=== PATIENT | female | born 1940 | race Caucasian/White ===

== ENCOUNTER → 2016-05-16 | Outpatient (CLI) | payer BC ==
[~2016-05-16] MED LIST: ASPEC81 PO; ATEN50TA8 PO; CHOL100010 PO; IRBE-37 PO; LORA-741 PO; SIMV40TA2 PO; TRIA37.5 PO; ZOLP5TAB6 PO; [UNRECOGNIZED DRUG - OTHER]
[2016-05-16 13:15] LABS: BASO % 0.6 %; BASO ABS # 0.04 K/uL (0-0.2); COMPLETE YES; EOS % 2.9 %; HEMATOCRIT 35.8 % (37-47); IG% 0.5 %; LYMPH % 14.6 %; LYMPH ABS # 0.97 K/uL (1.2-3.4); MEAN CELL VOLUME 89.3 fL (80-100); MEAN CORPUSCULAR HEMOGLOBIN 30.4 pg (25-34); MEAN CORPUSCULAR HGB CONC 34.1 g/dl (32-36); MEAN PLATELET VOLUME 10.7 fL (7.4-10.4); MONO % 6.9 %; NEUT % 74.5 %; PLATELET COUNT 175 K/uL (130-400); RED BLOOD COUNT 4.01 M/uL (4.2-5.4); WHITE BLOOD COUNT 6.63 K/uL (4.8-10.8)
[2016-05-16 13:48] LABS: ALT/SGPT 22 U/L (12-78); BLOOD UREA NITROGEN 31 mg/dl (7-18); BUN/CREATININE RATIO 23.8 (10-20); CALCIUM 9.8 mg/dl (8.5-10.1); CARBON DIOXIDE 25 mmol/L (21-32); CHLORIDE 102 mmol/L (98-107); CHOLESTEROL 145 mg/dl (0-200); GLUCOSE 82 mg/dl (70-99); SODIUM 137 mmol/L (136-145); TRIGLYCERIDES 88 mg/dl (0-150); VERY LOW DENSITY LIPOPROT CALC 18 mg/dl
[2016-05-16 13:58] LABS: ALKALINE PHOSPHATASE 82 U/L (45-117); AST/SGOT 14 U/L (15-37); CHOLESTEROL/HDL RATIO 2.5; HDL CHOLESTEROL 59 mg/dl; LDL CHOLESTEROL CALCULATED 68 mg/dl
== END | disposition home or self-care (01) ==
LOC: C.LAB1850 11:41
PROVIDERS: ATTEND Internal Medicine
DX: I44.7 Left bundle-branch block, unspecified (principal); E78.00 Pure hypercholesterolemia, unspecified; M81.0 Age-related osteoporosis without current pathological fracture

== ENCOUNTER → 2016-07-11 | Day surgery (SDC) | payer BC ==
[2016-07-04 15:13] VITALS: BMI 25.0
[~2016-07-11] VITALS: Ht 160 cm; Wt 65.0 kg
[~2016-07-11] MED LIST changes: +LIDOCAINE HCL 2% 2 ML VIAL (20MG/ML) ONE; +MIDAZOLAM HCL 1 MG/ML 2ML VIAL ONE; +ONDANSETRON INJ 2 MG/ML 2 ML VIAL ONE; +PROPOFOL IV EMULSION 10 MG/ML 20 ML VIAL IV ONE; -[UNRECOGNIZED DRUG - OTHER]
[2016-07-11 09:20] VITALS: Ht 160 cm; Wt 65.0 kg
--- NOTE | 2016-07-11 09:25 | Endo History and Physical ---
History & Physical Date of Service: July 11, 2016. Chief Complaint: Screening Referring Physician: Guille Dobson History of Present Illness 76 yo CF who presents for screening colonoscopy. Past Surgical History Hx Cardiac Surgery: Yes (HEART CATH, NO STENTS; AORTIC VALVE REPLACEMENT) Hx Internal Defibrillator: No Hx Pacemaker: No Hx Abdominal Surgery: No Hx of Implantable Prosthesis: No Hx Post-Op Nausea and Vomiting: No Hx Cancer Surgery: Yes (UBALDO BSO, LT BREAST MASTECTOMY) Hx Thoracic Surgery: No Hx Orthopedic: Yes (RT FOOT NEUROMA REMOVAL) Hx Urinary Tract Surgery: No Family History Colon CA Social History Smoking Status: Former Smoker Hx Substance Use: No Hx Alcohol Use: Yes (OCCASIONAL) Allergies Coded Allergies: Latex1 -Allergic Contact Dermititis (Verified Allergy, Unknown, RASH, 07/11) Penicillins (Verified Allergy, Unknown, RASH, 07/11/16) Sulfa Drugs (Verified Allergy, Unknown, "MAKE MY HEART RATE GO UP", ) Acetaminophen (Unverified Adverse Reaction, Intermediate, extreme nervous feeling and anxiety, 07/11/16) Oxycodone (Unverified Adverse Reaction, Intermediate, extreme nervous feeling and anxiety, 07/04/16) Uncoded Allergies: seafood (Allergy, Severe, nausea and vomiting profuse, 10/20/15) Current Medications Reported Home Medications Medications Dose Route/Sig Max Daily Dose Days Date Category Avapro (Irbesartan) 150 Mg Tab 0.5 Tab PO QAM 07/04/16 Reported Dyazide 37.5MG/25MG (Triamterene/HCTZ) Cap 1 Cap PO QAM 10/20/15 Reported Ativan (Lorazepam) 0.5 Mg Tab 1-2 Tabs PO Q8 PRN 10/20/15 Reported Vitamin D (Cholecalciferol) 1,000 Inter.unit Tab 1,000 Inter.unit PO QAM 12/25/12 Reported Ecotrin Or Generic * (Aspirin) 81 Mg Ectab 81 Mg PO QPM 03/31/09 Reported Zocor (Simvastatin) 40 Mg Tab 40 Mg PO HS 03/31/09 Reported Tenormin (Atenolol) 50 Mg Tab 50 Mg PO QAM 03/31/09 Reported Vital Signs Weight (Kilograms): 65.00 Height (Feet): 5 Height (Inches): 3 Physical Exam General Appearance: WD/WN, no apparent distress Respiratory/Chest: Auscultation: breath sounds normal Cardiovascular: Heart Auscultation: RRR Abdomen: Bowel Sounds: normal Inspection & Palpation: soft, non-distended, no tenderness, guarding & rebound Assessment and Plan Assessment: 76 yo CF who presents for screening colonoscopy. Plan: Proceed with colonoscopy.
--- NOTE | 2016-07-11 10:49 | GI REPORT ---
Procedure Date: 07/11/2016 10:03 AM THIS REPORT HAS BEEN AMENDED Addendum Number: 1 Addendum Date: 07/16/2016 4:35:22 PM No specimens were obtained during this procedure, and therefore, no pathology is pending. No repeat colonoscopy secondary to patient age and lack of adenomas. Procedure: Colonoscopy Indications: Screening for colorectal malignant neoplasm Medicines: Monitored Anesthesia Care Complications: No immediate complications. Estimated Blood Loss: Estimated blood loss: none. Procedure: Pre-Anesthesia Assessment: - Prior to the procedure, a History and Physical was performed, and patient medications and allergies were reviewed. The patient's tolerance of previous anesthesia was also reviewed. The risks and benefits of the procedure and the sedation options and risks were discussed with the patient. All questions were answered, and informed consent was obtained. Prior Anticoagulants: The patient has taken aspirin, last dose was 10 days prior to procedure. ASA Grade Assessment: II - A patient with mild systemic disease. After reviewing the risks and benefits, the patient was deemed in satisfactory condition to undergo the procedure. After I obtained informed consent, the scope was passed under direct vision. Throughout the procedure, the patient's blood pressure, pulse, and oxygen saturations were monitored continuously. The scope was introduced through the anus and advanced to the terminal ileum. The colonoscopy was performed without difficulty. The patient tolerated the procedure well. The quality of the bowel preparation was good. The terminal ileum, ileocecal valve, appendiceal orifice, and rectum were photographed. Findings: Multiple small-mouthed diverticula were found in the sigmoid colon. A localized area of mildly altered vascular mucosa was found in the rectum. Non-bleeding internal hemorrhoids were found during retroflexion. The hemorrhoids were small. Impression: - Diverticulosis in the sigmoid colon. - Altered vascular mucosa in the rectum. - Non-bleeding internal hemorrhoids. - No specimens collected. Recommendation: - Resume previous diet. - Continue present medications. - Repeat colonoscopy for surveillance based on pathology results. - Return to primary care physician as previously scheduled. Tyree ChristianoVasile ePrezDO 07/11/2016 10:48:48 AM This report has been signed electronically. Note Initiated On: 07/11/2016 10:03 AM I attest to the content of the Intraoperative Record and orders documented therein, exceptions below Tyree Martell PerezDO 07/16/2016 4:37:59 PM This report has been signed electronically.
--- NOTE | 2016-07-11 10:49 | Discharge Instructions ---
Endoscopy Patient Instructions Date / Procedure(s) Performed July 11, 2016. Colonoscopy Allergy Information Coded Allergies: Latex1 -Allergic Contact Dermititis (Verified Allergy, Unknown, RASH, 07/11) Penicillins (Verified Allergy, Unknown, RASH, 07/11/16) Sulfa Drugs (Verified Allergy, Unknown, "MAKE MY HEART RATE GO UP", ) Acetaminophen (Unverified Adverse Reaction, Intermediate, extreme nervous feeling and anxiety, 07/11/16) Oxycodone (Unverified Adverse Reaction, Intermediate, extreme nervous feeling and anxiety, 07/04/16) Uncoded Allergies: seafood (Allergy, Severe, nausea and vomiting profuse, 10/20/15) Discharge Date / Findings July 11, 2016. 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 Reported Home Medications Medications Dose Route/Sig Max Daily Dose Days Date Category Avapro (Irbesartan) 150 Mg Tab 0.5 Tab PO QAM 07/04/16 Reported Dyazide 37.5MG/25MG (Triamterene/HCTZ) Cap 1 Cap PO QAM 10/20/15 Reported Ativan (Lorazepam) 0.5 Mg Tab 1-2 Tabs PO Q8 PRN 10/20/15 Reported Vitamin D (Cholecalciferol) 1,000 Inter.unit Tab 1,000 Inter.unit PO QAM 12/25/12 Reported Ecotrin Or Generic * (Aspirin) 81 Mg Ectab 81 Mg PO QPM 03/31/09 Reported Zocor (Simvastatin) 40 Mg Tab 40 Mg PO HS 03/31/09 Reported Tenormin (Atenolol) 50 Mg Tab 50 Mg PO QAM 03/31/09 Reported Provider Instructions Activity Restrictions - No exercising or heavy lifting for 24 hours. - Do not drink alcohol the day of the procedure. - Do not drive a car or operate machinery until the day after the procedure. - Do not make any important decisions or sign important papers in 24 hours after the procedure. Following Day: - Return to full activity which may include returning to work/school. Diet Start your diet with liquids and light foods (jello, soup, juice, toast). Then eat your usual diet if not nauseated. Treatment For Common After Affects For mild abdominal pain, bloating, or excessive gas: - Rest - Eat lightly - Lie on right side Follow-Up Information Follow-up with DR. CRYSTAL as scheduled Anesthesia Information What You Should Know You have had a procedure that required some medicine to reduce anxiety and discomfort. This treatment is called moderate sedation. After receiving the treatment, you may be sleepy, but you will be able to breathe on your own. The effects of the treatment may last for several hours. Follow these instructions along with Activity/Diet recommendations noted above: * Do NOT do anything where dizziness or clumsiness would be dangerous. * Rest quietly at home today, then you can be up and about tomorrow. * Have a responsible person stay with you the rest of today. * You may have had an I.V. today. If so, you may take the dressing off later today. Recommendations Call your doctor if: * Trouble breathing * Continuous vomiting for more than 24 hours * Temperature above 101 degrees * Severe abdominal pain or bloating * Pain not relieved by pain medicine ordered * There is increased drainage or redness from any incision * A large amount of rectal bleeding greater than 2-3 tablespoons. (If you had a polyp/s removed or have hemorrhoids, a small amount of blood - from the rectum is to be expected.) * You have any unanswered questions or concerns. IN THE EVENT OF A SERIOUS EMERGENCY, GO TO THE NEAREST EMERGENCY ROOM Your discharge instructions were prepared by provider Tyree Todd. Patient Instructions Signature Page Olimpia Iniguez Patient (or Guardian) Signature/Date: I have read and understand the instructions given to me by my caregivers. Caregiver/RN/Doctor Signature/Date: The above-named patient and/or guardian has received patient instructions on this date. + Original Patient Signature Page (only) stays with chart. Please make copy for patient.
--- NOTE | 2016-07-11 11:05 | Anesthesiology Progress Note ---
Anesthesia Post Op Note Date & Time July 11, 2016 at 11:05 Vital Signs Pain Intensity: 0 Vital Signs Past 12 Hours Date Time Temp Pulse Resp B/P Pulse Ox O2 Delivery O2 Flow Rate FiO2 07/11/16 10:55 66 16 106/37 99 Room Air 07/11/16 10:40 62 16 101/33 99 Room Air 07/11/16 09:33 36.5 62 20 146/57 99 Room Air Notes Mental Status: alert / awake / arousable, participated in evaluation Pt Amnestic to Procedure: Yes Nausea / Vomiting: adequately controlled Pain: adequately controlled Airway Patency, RR, SpO2: stable & adequate BP & HR: stable & adequate Hydration State: stable & adequate Anesthetic Complications: no major complications apparent
[2016-07-11 11:45] VITALS: BP 134/49; PULSE 72; O2SAT 99
== END | disposition home or self-care (01) ==
LOC: C.GI 09:02
PROVIDERS: ATTEND Internal Medicine
DX: Z12.11 Encounter for screening for malignant neoplasm of colon (principal); K57.30 Diverticulosis of large intestine without perforation or abscess without bleeding; K62.89 Other specified diseases of anus and rectum; K64.8 Other hemorrhoids; I10 Essential (primary) hypertension; Z95.2 Presence of prosthetic heart valve; Z90.12 Acquired absence of left breast and nipple; Z98.890 Other specified postprocedural states; Z91.040 Latex allergy status; F41.9 Anxiety disorder, unspecified; Z68.25 Body mass index [BMI] 25.0-25.9, adult; Z79.899 Other long term (current) drug therapy; Z87.891 Personal history of nicotine dependence; Z85.42 Personal history of malignant neoplasm of other parts of uterus; Z88.0 Allergy status to penicillin; Z88.2 Allergy status to sulfonamides; Z88.5 Allergy status to narcotic agent; Z80.0 Family history of malignant neoplasm of digestive organs

== ENCOUNTER → 2016-10-16 | Outpatient (CLI) | payer BC ==
[2015-10-20 13:40] VITALS: BP 101/61; PULSE 53
[~2016-10-16] MED LIST changes: -LIDOCAINE HCL 2% 2 ML VIAL (20MG/ML) ONE; -MIDAZOLAM HCL 1 MG/ML 2ML VIAL ONE; -ONDANSETRON INJ 2 MG/ML 2 ML VIAL ONE; -PROPOFOL IV EMULSION 10 MG/ML 20 ML VIAL IV ONE
[2016-10-16 13:38] VITALS: BP 116/55; PULSE 56; TEMP 36.6; O2SAT 97
--- NOTE | 2016-10-16 17:38 | Radiation Oncology Follow-Up ---
Radiation Oncology Follow-Up Date of Visit Oct 16, 2016. 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 She denies any change of urination or bowel habits. She's had no vaginal discharge or irritation. There has been no vaginal bleeding. She has stopped using the vaginal dilator. She had normal Pap smear last year. Allergies Coded Allergies: Latex1 -Allergic Contact Dermititis (Verified Allergy, Unknown, RASH, 07/11) Penicillins (Verified Allergy, Unknown, RASH, 07/11/16) Sulfa Drugs (Verified Allergy, Unknown, "MAKE MY HEART RATE GO UP", ) Acetaminophen (Unverified Adverse Reaction, Intermediate, extreme nervous feeling and anxiety, 07/11/16) Oxycodone (Unverified Adverse Reaction, Intermediate, extreme nervous feeling and anxiety, 07/04/16) Uncoded Allergies: seafood (Allergy, Severe, nausea and vomiting profuse, 10/20/15) Home Medications Scheduled Aspirin Enteric Coated (Ecotrin Or Generic *), 81 MG PO QPM Atenolol (Tenormin), 50 MG PO QAM Cholecalciferol (Vitamin D), 1,000 INTER.UNIT PO QAM Irbesartan (Avapro), 1 TAB PO QAM Simvastatin (Zocor), 40 MG PO HS Triamterene/Hctz (Dyazide 37.5MG/25MG), 1 CAP PO QAM Scheduled PRN Zolpidem Tartrate (Zolpidem Tartrate), 1 TAB PO HS PRN for Insomnia Review of Systems Gastrointestinal: Symptoms: WNL GI Comments: No fiber supplements; Oral: Symptoms: No Problems Respiratory: Symptoms: WNL Urinary: Symptoms: WNL Skin: Symptoms: No Problems Physical Exam Vital Signs Date Time Temp Pulse Resp B/P (MAP) Pulse Ox O2 Delivery O2 Flow Rate FiO2 10/16/16 13:38 36.6 56 16 116/55 97 Pain: Side: Left Pain Location: Hip Patient Pain Scale: 0 - 10 Initial Pain Intensity: 2.0 Additional Comments: Arthritic Pain Fatigue: None General Appearance: no apparent distress Eyes: normal inspection, EOMI ENT: normal ENT inspection, hearing grossly normal Neck: no adenopathy, thyroid normal Respiratory/Chest: normal breath sounds, no respiratory distress, no accessory muscle use Cardiovascular: regular rate, rhythm, no gallop, + systolic murmur (3/6 systolic murmur heard best at the aortic area) Genitourinary - Female: Normal external genitalia. She does have foreshortening of the vagina. There are no visible or palpable lesions of the vagina. A Pap smear was taken. No masses or tenderness on bimanual examination. Anal / Rectum: Normal sphincter tone. No rectal masses and no rectal bleeding. 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 COPIES TO Russ Dobson M.D. Kline, Angelica, PA-C Assessment & Plan Plan: She'll be notified as to results of her Pap smear. Continue regular follow-up with her primary care physician. We asked her to return to our office in 1 year. She may call our office if she has any questions or concerns. Total Time In Follow-Up I spent 20 minutes speaking to the patient and performing examination. I spent 15 minutes reviewing information and completeness of note. Copy To Russ Dobson M.D.
== END | disposition home or self-care (01) ==
LOC: C.ONC 13:32
PROVIDERS: ATTEND Physician Assistant Medical
DX: Z08 Encounter for follow-up examination after completed treatment for malignant neoplasm (principal); Z92.3 Personal history of irradiation; Z85.42 Personal history of malignant neoplasm of other parts of uterus

== ENCOUNTER → 2016-11-16 | Outpatient (CLI) | payer BC ==
[~2016-11-16] MED LIST changes: -LORA-741 PO
[2016-11-16 11:50] LABS: BLOOD UREA NITROGEN 34 mg/dl (7-18); BUN/CREATININE RATIO 22.7 (10-20); CALCIUM 9.4 mg/dl (8.5-10.1); CARBON DIOXIDE 26 mmol/L (21-32); CHLORIDE 105 mmol/L (98-107); GLUCOSE 92 mg/dl (70-99); POTASSIUM 4.4 mmol/L (3.5-5.1); SODIUM 135 mmol/L (136-145)
== END | disposition home or self-care (01) ==
LOC: C.LAB1850 10:17
PROVIDERS: ATTEND Internal Medicine
DX: N28.9 Disorder of kidney and ureter, unspecified (principal)

== ENCOUNTER → 2016-12-11 | Outpatient (CLI) | payer BC | END | disposition home or self-care (01) | LOC: C.MAMM 11:18 | PROVIDERS: ATTEND Internal Medicine | DX: M81.0 Age-related osteoporosis without current pathological fracture (principal); M85.89 Other specified disorders of bone density and structure, multiple sites ==

== ENCOUNTER → 2016-12-17 | Outpatient (CLI) | payer BC ==
[2016-12-17 15:16] LABS: ALT/SGPT 19 U/L (12-78); AST/SGOT 12 U/L (15-37); BLOOD UREA NITROGEN 20 mg/dl (7-18); BUN/CREATININE RATIO 18.3 (10-20); CALCIUM 8.9 mg/dl (8.5-10.1); CARBON DIOXIDE 25 mmol/L (21-32); CHLORIDE 109 mmol/L (98-107); CREATININE 1.09 mg/dl (0.60-1.20); GLUCOSE 121 mg/dl (70-99); SODIUM 142 mmol/L (136-145)
[2016-12-17 15:18] LABS: ALB/GLOB RATIO 0.9 (0.9-2); ALKALINE PHOSPHATASE 88 U/L (45-117)
== END | disposition home or self-care (01) ==
LOC: C.LAB1850 13:23
PROVIDERS: ATTEND Internal Medicine
DX: N28.9 Disorder of kidney and ureter, unspecified (principal)

== ENCOUNTER → 2017-05-27 | Outpatient (CLI) | payer BC ==
[2017-05-27 10:14] LABS: BASO % 0.5 %; BASO ABS # 0.03 K/uL (0-0.2); EOS ABS # 0.19 K/uL (0-0.5); HEMATOCRIT 36.3 % (37-47); HEMOGLOBIN 11.9 g/dL (12.0-16.0); IG# 0.01 K/uL (0.00-0.02); LYMPH % 12.5 %; MEAN CELL VOLUME 87.7 fL (80-100); MEAN CORPUSCULAR HEMOGLOBIN 28.7 pg (25-34); MEAN CORPUSCULAR HGB CONC 32.8 g/dl (32-36); MEAN PLATELET VOLUME 10.6 fL (7.4-10.4); MONO ABS # 0.58 K/uL (0.11-0.59); NEUT % 74.8 %; NEUT ABS # 4.81 K/uL (1.4-6.5); PLATELET COUNT 160 K/uL (130-400); RED CELL DISTRIBUTION WIDTH CV 15.8 % (11.5-14.5); RED CELL DISTRIBUTION WIDTH SD 50.9 fL (36.4-46.3); WHITE BLOOD COUNT 6.42 K/uL (4.8-10.8)
[2017-05-27 10:49] LABS: ALBUMIN 3.7 gm/dl (3.4-5.0); ALKALINE PHOSPHATASE 86 U/L (45-117); ALT/SGPT 19 U/L (12-78); AST/SGOT 15 U/L (15-37); BLOOD UREA NITROGEN 22 mg/dl (7-18); CALCIUM 9.3 mg/dl (8.5-10.1); CARBON DIOXIDE 26 mmol/L (21-32); CREATININE 1.04 mg/dl (0.60-1.20); GLUCOSE 93 mg/dl (70-99); POTASSIUM 3.9 mmol/L (3.5-5.1); SODIUM 139 mmol/L (136-145); TOTAL PROTEIN 7.8 gm/dl (6.4-8.2)
[2017-05-27 11:01] LABS: CHOLESTEROL 132 mg/dl (0-200); LDL CHOLESTEROL CALCULATED 63 mg/dl
== END | disposition home or self-care (01) ==
LOC: C.LAB1850 09:19
PROVIDERS: ATTEND Internal Medicine
DX: E78.00 Pure hypercholesterolemia, unspecified (principal); I10 Essential (primary) hypertension; R73.09 Other abnormal glucose

== ENCOUNTER → 2017-06-04 | Outpatient (CLI) | payer BC ==
--- NOTE | 2017-06-04 10:48 | DIAGNOSTIC IMAGING REPORT ---
LUMBAR SPINE 5 VIEWS HISTORY: Chronic low back pain. COMPARISON: None. FINDINGS: There is no fracture. 5 mm of anterolisthesis of L4 and L5. Severe disc space narrowing at L3-4 and moderate to space narrowing at L1-L2 and L2-L3 with small endplate osteophytes. Mild levoscoliosis. The sacrum is intact. There are surgical clips within the sacrum. Moderate facet degenerative changes within the lower lumbar spine. IMPRESSION: 1. No fractures within the lumbar spine. 2. Degenerative changes as described above. 3. Mild levoscoliosis. 4. Grade I anterolisthesis of L4 on L5. Electronically signed by: Randall Rhodes M.D. 06/04/2017 10:47 AM Dictated Date/Time: 06/04/2017 10:36 AM
== END | disposition home or self-care (01) ==
LOC: C.RAD1850 09:40
PROVIDERS: ATTEND Internal Medicine Rheumatology
DX: M47.26 Other spondylosis with radiculopathy, lumbar region (principal); M43.16 Spondylolisthesis, lumbar region

== ENCOUNTER → 2017-06-25 | Outpatient (CLI) | payer BC | END | disposition home or self-care (01) | LOC: C.LAB1850 08:57 | PROVIDERS: ATTEND Internal Medicine Rheumatology | DX: D89.2 Hypergammaglobulinemia, unspecified (principal); E61.8 Deficiency of other specified nutrient elements ==

== ENCOUNTER 2018-06-14 01:15 | Inpatient (IN) ==
[2018-06-14 01:39] LABS: Basophils # (auto) 0.02 K/uL (0-0.2); Basophils % (auto) 0.2 %; Eosinophils # (auto) 0.26 K/uL (0-0.5); Eosinophils % (auto) 2.7 %; Hematocrit (blood only) 38.9 % (37-47); Hemoglobin 13.2 g/dL (12.0-16.0); Immature Granulocytes # (auto) 0.01 K/uL (0.00-0.02); Immature Granulocytes % (auto) 0.1 %; Lymphocytes # (auto) 1.33 K/uL (1.2-3.4); Mean Corpuscular Hgb Conc 33.9 g/dL (32-36); Mean Corpuscular Volume 87.8 fL (80-100); Mean Platelet Volume 9.9 fL (7.4-10.4); Monocytes # (auto) 0.84 K/uL (0.11-0.59); Monocytes % (auto) 8.8 %; Neutrophils # (auto) 7.07 K/uL (1.4-6.5); Neutrophils % (auto) 74.2 %; Platelet Count 169 K/uL (130-400); RDW Coefficient of Variation 13.8 % (11.5-14.5); RDW Standard Deviation 44.4 fL (36.4-46.3); Red Blood Count 4.43 M/uL (4.2-5.4); White Blood Count 9.53 K/uL (4.8-10.8)
[2018-06-14 01:49] LABS: INR 1.1 (0.9-1.1); Partial Thromboplastin Ratio 0.9; Partial Thromboplastin Time 25.1 Seconds (21.0-31.0); Prothrombin Time 10.9 Seconds (9.0-12.0)
[2018-06-14 01:58] LABS: Alanine Aminotransferase 23 U/L (12-78); Albumin Level 3.9 gm/dl (3.4-5.0); Aspartate Aminotransferase 14 U/L (15-37); BUN Creatinine Ratio 22.7 (10-20); Blood Urea Nitrogen 27 mg/dl (7-18); Calcium 9.8 mg/dl (8.5-10.1); Carbon Dioxide 28 mmol/L (21-32); Chloride 106 mmol/L (98-107); Creatinine Clr Calc Pharmacy 36.9 ml/min; Est GFR (African American) 51.9; Est GFR (Non-African American) 44.8; Glucose 167 mg/dl (70-99); Magnesium 1.6 mg/dl (1.8-2.4); Potassium 3.6 mmol/L (3.5-5.1); Sodium 139 mmol/L (136-145)
[2018-06-14] MEDS ORDERED: ALTEPLASE IV SCH ×2 (02:00→02:15)
[2018-06-14] MEDS ORDERED: [UNRECOGNIZED DRUG - OTHER] IV SCH (02:00)
[2018-06-14] MEDS ORDERED: PRIMARY PLUMSET 1 EA IV ONE (02:00)
[2018-06-14 02:03] LABS: Albumin Globulin Ratio 0.8 (0.9-2); Alkaline Phosphatase 103 U/L (45-117); Bilirubin,Total 0.4 mg/dl (0.2-1); Globulin 4.6 gm/dl (2.5-4.0); Total Protein 8.5 gm/dl (6.4-8.2); Troponin I < 0.015 ng/ml (0-0.045)
[2018-06-14] MEDS ORDERED: RECOMBINANT IV SCH (02:15)
[2018-06-14] MEDS ORDERED: DiphenhydrAMINE HCL 50 MG/ML VIAL IV STA (03:05)
[2018-06-14 03:44] LABS: Appearance Urine Clear (Clear); Bacteria Urine Automated Negative (Negative); Bilirubin Urine Negative (Negative); Blood Urine Trace (Negative); Color Urine Yellow; Glucose Urine UA Negative (Negative); Ketones Urine Negative (Negative); Leukocyte Esterase Urine Negative (Negative); Nitrite Urine Negative (Negative); Protein Urine Trace (Negative); RBC Urine Automated 0-4 /hpf (0-4); Specific Gravity Urine 1.014 (1.000-1.030); Urobilinogen Urine Negative (Negative); pH Urine 6.5 (4.5-7.5)
[2018-06-14] MEDS ORDERED: OPTIRAY 320 125ml IV PRN (04:24)
--- NOTE | 2018-06-14 04:42 | History & Physical Report ---
Date of Service June 14, 2018 Assessment & Plan (1) Received intravenous tissue plasminogen activator (tPA) in emergency d epartment: Received IV TPA in the emergency department at direction until stroke from [facility]/acute CVA/hypertension/admission to ICU- The patient will be admitted to telemetry for serial cardiac enzymes, cardiac rhythm monitoring and a 2-D echocardiogram with Dopplers. Follow CVA with TPA protocol. Order MRI brain without contrast, and complete echocardiogram. Consult medical social consultant, PT, OT, speech therapy, neurology. Check hemoglobin A1c and fasting lipid profile. Continue aspirin 81 mg by mouth daily, and simvastatin 40 mg at bedtime Present on Admission?: Yes (2) Cerebrovascular accident: Patient began to report improved symptoms right upper extremity weakness and numbness, and noted improved speech while still receiving TPA in the ED. Present on Admission?: Yes (3) Admitted to intensive care unit: As noted. Present on Admission?: Yes (4) Hypertension: As long as patient passes dysphagia screen, will continue atenolol 50 mg every morning with hold parameters, and irbesartan I 50 mg p.o. daily. Present on Admission?: Yes (5) Hyperlipidemia LDL goal <70: Continue simvastatin 40 mg at bedtime. Fasting lipid panel and hemoglobin A1c as noted. Present on Admission?: Yes (6) Endometrial carcinoma: Noted. Present on Admission?: Yes (7) Insomnia: Continue zolpidem 10 mg nightly as needed. Present on Admission?: Yes History of Present Illness Chief Complaint: The patient presented to the emergency department with right upper extremity weakness and decreased sensation along with difficulty with speech that began just prior to arrival. Primary Care Provider: Russ Dobson MD The patient is a 78-year-old female with past medical history including endometrial carcinoma, hypertension, and hyperlipidemia who presented to the emergency department as a stroke alert with right upper chimney weakness and difficulty with speech. She underwent a assessment by tele-stroke from [facility], was found to be having an acute CVA, and underwent TPA after having a CT of the head which was negative. Allergies Allergy/AdvReac Type Severity Reaction Status Date / Time latex Allergy Unknown RASH Verified 06/14/18 01:36 Penicillins Allergy Unknown RASH Verified 06/14/18 01:36 Sulfa (Sulfonamide Allergy Unknown "MAKE MY Verified 06/14/18 01:36 Antibiotics) HEART RATE GO UP" acetaminophen AdvReac Intermediate extreme Unverified 06/14/18 01:36 nervous feeling and anxiety oxycodone AdvReac Intermediate extreme Unverified 06/14/18 01:36 nervous feeling and anxiety seafood Allergy Severe nausea and Uncoded 06/14/18 01:36 vomiting profuse Home Medications Home Medications Medication Instructions Recorded Confirmed Type aspirin 81 mg PO DAILY 06/14/18 06/14/18 History atenolol 50 mg PO QAM 06/14/18 06/14/18 History cholecalciferol (vitamin D3) 1,000 unit PO DAILY 06/14/18 06/14/18 History [Vitamin D3] irbesartan 150 mg PO DAILY 06/14/18 06/14/18 History simvastatin 40 mg PO HS 06/14/18 06/14/18 History zolpidem 10 mg PO HS PRN 06/14/18 06/14/18 History Past Med/Surg History Medical History 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 and bilateral salpingo-oophorectomy Stage TII N0M0 stage IIB Status post external beam radiation as well as HDR boost completed 02/06/2005" Social History Preferred Language: Venezuelan marital status: current occupational status: retired Feels Safe at Home: Yes Smoking Status: Never smoker Review of Systems Review of Systems: The patient denies chest pain, palpitations, shortness of breath, dyspnea on exertion, cough, lower extremity swelling, sore throat, fevers, chills, sweats, weight change, fatigue, nausea, vomiting, diarrhea , constipation, abdominal pain, pelvic pain, blood in urine or stool, dysuria, urinary frequency or urgency, lightheadedness, dizziness, headache, loss of consciousness, rash, abnormal bruising or bleeding, imbalance, focal weakness, numbness or tingling in left arm or legs, generalized arthralgias or myalgias, back or neck pain, or night sweats. The review of systems is otherwise negative other than for that already noted above, and at least 10 systems have been reviewed. Physical Exam Physical Exam: The patient is presently receiving TPA. She is awake, alert and oriented 3, well developed and well nourished, normocephalic and atraumatic, lying in bed and in no acute distress. HEENT--PERRL, EOMI, mucous membranes and oropharynx moist. Neck--supple. No JVD. No bruits. Thyroid normal, trachea midline, no adenopathy. Heart--normal S1 and S2. No murmurs, rubs or gallops. Lungs--clear bilaterally, no respiratory distress, no accessory muscle use. Abdomen--normal bowel sounds and soft. Nontender. Nondistended, no hernias or masses, no organomegaly. Extremities--no cyanosis or clubbing. No edema. There are good distal pulses b/l. Dermatologic--normal skin turgor, normal color, no abnormal lymph nodes, no rash. Neurologic--cranial nerves II through XII grossly intact. Rheumatologic--normal range of motion. Psychiatric--normal affect. Results & Data Vital Signs (Past 12 Hours) Vital Signs Temp Pulse Pulse Resp BP BP Pulse Ox 06/14/18 04:01 86 14 150/81 H 98 06/14/18 03:46 81 23 157/65 H 97 06/14/18 03:31 78 16 145/80 H 98 06/14/18 03:17 99 H 22 147/105 H 99 06/14/18 03:02 74 22 133/66 96 06/14/18 02:45 82 18 139/61 95 06/14/18 02:30 102 H 18 149/87 H 98 06/14/18 02:15 36.4 C L 84 26 H 150/70 H 97 06/14/18 02:12 91 H 27 H 139/64 98 06/14/18 01:23 36.7 C 86 18 146/80 H 97 06/14/18 01:14 98 Laboratory Results Laboratory Results WBC 9.53 K/uL (4.8-10.8) 06/14/18 01:28 RBC 4.43 M/uL (4.2-5.4) 06/14/18 01:28 Hgb 13.2 g/dL (12.0-16.0) 06/14/18 01:28 Hct 38.9 % (37-47) 06/14/18 01:28 MCV 87.8 fL (80-100) 06/14/18 01:28 MCH 29.8 pg (25-34) 06/14/18 01:28 MCHC 33.9 g/dL (32-36) 06/14/18 01:28 RDW Std Deviation 44.4 fL (36.4-46.3) 06/14/18 01: RDW Coeff of Ovidio 13.8 % (11.5-14.5) 06/14/18 01:28 Plt Count 169 K/uL (130-400) 06/14/18 01:28 MPV 9.9 fL (7.4-10.4) 06/14/18 01:28 Immature Gran % (Auto) 0.1 % 06/14/18 01: Neut % (Auto) 74.2 % 06/14/18 01: Lymph % (Auto) 14.0 % 06/14/18 01:28 [place] % (Auto) 8.8 % 06/14/18 01:28 Eos % (Auto) 2.7 % 06/14/18 01: Baso % (Auto) 0.2 % 06/14/18 01:28 Immature Gran # (Auto) 0.01 K/uL (0.00-0.02) 06/14/18 01:28 Neut # (Auto) 7.07 K/uL (1.4-6.5) H 06/14/18 01:28 Lymph # (Auto) 1.33 K/uL (1.2-3.4) 06/14/18 01:28 [place] # (Auto) 0.84 K/uL (0.11-0.59) H 06/14/18 01:28 Eos # (Auto) 0.26 K/uL (0-0.5) 06/14/18 01:28 Baso # (Auto) 0.02 K/uL (0-0.2) 06/14/18 01:28 PT 10.9 Seconds (9.0-12.0) 06/14/18 01:28 INR 1.1 (0.9-1.1) 06/14/18 01:28 APTT 25.1 Seconds (21.0-31.0) 06/14/18 01:28 PTT Ratio 0.9 06/14/18 01:28 Sodium 139 mmol/L (136-145) 06/14/18 01:28 Potassium 3.6 mmol/L (3.5-5.1) 06/14/18 01:28 Chloride 106 mmol/L (98-107) 06/14/18 01:28 Carbon Dioxide 28 mmol/L (21-32) 06/14/18 01:28 Anion Gap 5.0 (3-11) 06/14/18 01:28 BUN 27 mg/dl (7-18) H 06/14/18 01:28 Creatinine 1.18 mg/dl (0.6-1.2) 06/14/18 01:28 Est Cr Clr Drug Dosing 36.9 ml/min 06/14/18 01:28 Est GFR ( Amer) 51.9 06/14/18 01:28 Est GFR (Non-Af Amer) 44.8 06/14/18 01:28 BUN/Creatinine Ratio 22.7 (10-20) H 06/14/18 01:28 Glucose 167 mg/dl (70-99) H 06/14/18 01:28 Calcium 9.8 mg/dl (8.5-10.1) 06/14/18 01:28 Magnesium 1.6 mg/dl (1.8-2.4) L 06/14/18 01:28 Total Bilirubin 0.4 mg/dl (0.2-1) 06/14/18 01:28 AST 14 U/L (15-37) L 06/14/18 01:28 ALT 23 U/L (12-78) 06/14/18 01:28 Alkaline Phosphatase 103 U/L (45-117) 06/14/18 01:28 Troponin I < 0.015 ng/ml (0-0.045) 06/14/18 01:28 Total Protein 8.5 gm/dl (6.4-8.2) H 06/14/18 01:28 Albumin 3.9 gm/dl (3.4-5.0) 06/14/18 01:28 Globulin 4.6 gm/dl (2.5-4.0) H 06/14/18 01:28 Albumin/Globulin Ratio 0.8 (0.9-2) L 06/14/18 01:28 Urine Color Yellow 06/14/18 03:30 Urine Appearance Clear (Clear) 06/14/18 03:30 Urine pH 6.5 (4.5-7.5) 06/14/18 03:30 Ur Specific [place] 1.014 (1.000-1.030) 06/14/18 03:30 Urine Protein Trace (Negative) H 06/14/18 03:30 Urine Glucose (UA) Negative (Negative) 06/14/18 03:30 Urine Ketones Negative (Negative) 06/14/18 03:30 Urine Blood Trace (Negative) H 06/14/18 03:30 Urine Nitrite Negative (Negative) 06/14/18 03:30 Urine Bilirubin Negative (Negative) 06/14/18 03:30 Urine Urobilinogen Negative (Negative) 06/14/18 03:30 Ur Leukocyte Esterase Negative (Negative) 06/14/18 03:30 Urine WBC (Auto) 1-5 /hpf (0-5) 06/14/18 03:30 Urine RBC (Auto) 0-4 /hpf (0-4) 06/14/18 03:30 U Hyaline Cast (Auto) 1-5 /lpf (0-5) 06/14/18 03:30 U Epithel Cells (Auto) 10-20 /lpf (0-5) H 06/14/18 03:30 Urine Bacteria (Auto) Negative (Negative) 06/14/18 03:30 Blood Type A Negative 06/14/18 01:28 Antibody Screen NEGATIVE 06/14/18 01:28 Diagnostic Findings [facility] Patient: FINA FLYNN (Female) Age: 78 MR #: [id number] Status: ER Date: 06/14/18 01:24 Slices: 58 History: rt side arm weakness Priors: Tech: Gary Stearns @ [phone] Exams: CT HEAD Accession Numbers: [id number] Preliminary Findings Only See Final Report For Complete Findings CT HEAD: No ICH, mass effect, or midline shift. No acute cortical infarct. Age-related changes. Radiologist: Marietta Bach M.D. Study ready at 01:26 and initial results transmitted at 01:29 Critical Value Communications Clear Time Type Notes 06/14/18 01:31 Call Doctor Regarding Stroke, called Dr. Simms on 06/14 01:31 (-04:00) *This report constitutes a preliminary interpretation only. Non-acute findings felt to be unrelated to the clinical presentation may not be discussed in this report. The study will be interpreted and a final report will be generated by the local Radiologist the following shift. To reach the hospital radiology department call [phone]. If a discrepancy is found between the preliminary and final interpretations of this study, please notify us via our Client Portal at [email or web address] under [employer]. You can also fax this report with a description of the discrepancy, or include the final report, to our daytime fax number [phone]. If faxing, please indicate the severity of discrepancy using one of the following categories: [ ] 1 - Agree/Informational [ ] 2 - Unlikely to Affect Management [ ] 3 - Possible Eventual Change of Management [ ] 4 - Probable Immediate Change of Management For all other patient related information, please fax us at [phone]. Code Status & VTE Plan Code Status Full code VTE Prophylaxis Plan VTE Prophylaxis will be ordered: Yes Critical Care Time Total critical care time was 40 minutes Critical Care Time: Yes Total Critical Care Time: 40 (1) Cerebrovascular accident CVA mechanism: unspecified Qualified Code(s): I63.9 - Cerebral infarction, unspecified
[2018-06-14] MEDS ORDERED: ICU PROTOCOL FOR HYPERGLYCEMIA PRN (04:49)
[2018-06-14] MEDS: NSS + 20MEQ KCL 20 MEQ/1,000 ML BAG IV SCH ×2 (05:08→15:26)
[2018-06-14] MEDS ORDERED: PHARMACIST DISCHARGE MED REC CONSULT PRN (05:32)
--- NOTE | 2018-06-14 05:54 | Critical Care Consultation ---
Date of Consultation June 14, 2018 Assessment & Plan (1) Cerebrovascular accident: Reason Critically Ill: 78-year-old female that presented to the ED with CVA, received TPA with improvement of symptoms and admitted to ICU Neuro - [facility] ICU: Negative CVA/TPA administrationpatient initially presented with right-sided weakness and dysarthria, symptoms improved since TPA administration -Initial CT head negative, CTA head and neck showed no large vessel occlusion -Swelling to right calf and right shoulder following TPA administration, x- rays ordered, follow-up reports -Initial NIH SS score 3, now 1 -Post 24-hour TPA orders to start tomorrow morning -Follow-up fasting lipid panel -We will continue home dose aspirin tomorrow morning -We will follow-up neurology Recs -PT and OT, speech Cardiac -history of AVR -EKG showed LBBB, negative Sgarbossa's criteria, troponin negative HLDcontinue home statin -Continue to monitor on telemetry -Continue home meds when appropriate Respiratory - Currently on room air no process at this time GI - Heart healthy diet RENAL/LYTES - Monitor BMPs and replete as necessary - Strict I's and O's, UA negative ENDO - ICU hyperglycemia protocol Follow-up TSH T4 HEME - H&H stable, routine CBCs ID - No indication for infectious process LINES/IV ACCESS - Peripheral IVs x2 DVT PROPHYLAXIS - SCDs, holding anticoagulation for recent TPA administration (2) Hypertension: (3) Hyperlipidemia LDL goal <70: (4) Admitted to intensive care unit: Supervising Physician Co-Signing Physician Notes I have personally evaluated and examined this patient. I agree with assessment and plan of Toño GARCIA. During my evaluation the patient's weaknesses had near complete resolution, the patient reports that she also believes they are near completely resolved. She does have 2 ecchymoses one on her right shoulder as well as right anterior dickson they do not appear to be enlarging. Patient received TPA at [address] second day TPA orders at midnight. History of Present Illness Attending Physician: Juan F Cochran MD History of Present Illness Ms. Iniguez is a 78-year-old female with past medical history significant for endometrial carcinoma, hypertension, HLD who presented to the emergency department shortly after experiencing right upper extremity weakness with decreased sensation, and difficulty with speech. Stroke alert was initiated, initial NIHHS of 3, CT head negative, patient received TPA administration. Currently the patient presents to the ICU comfortable and alert and oriented x4. Neurological exam is within normal limits and patient only reports mild decreased sensation to the right side of face. Cranial nerves intact. Current NIHSS of 1. Patient denies headache, changes in vision, weakness, difficulty swallowing. Reports difficulty with speech has improved. Denies syncope, shortness of breath, dyspnea, palpitations, chest pain, abdominal pain, nausea and vomiting. Patient does have swelling and bruising at right calf and right shoulder of which she reports pain and tenderness at site. Will obtain imaging. Patient currently hemodynamically stable. Will remain in ICU following 24-hour TPA administration. Allergies Allergy/AdvReac Type Severity Reaction Status Date / Time latex Allergy Unknown RASH Verified 06/14/18 01:36 Penicillins Allergy Unknown RASH Verified 06/14/18 01:36 Sulfa (Sulfonamide Allergy Unknown "MAKE MY Verified 06/14/18 01:36 Antibiotics) HEART RATE GO UP" acetaminophen AdvReac Intermediate extreme Unverified 06/14/18 01:36 nervous feeling and anxiety oxycodone AdvReac Intermediate extreme Unverified 06/14/18 01:36 nervous feeling and anxiety seafood Allergy Severe nausea and Uncoded 06/14/18 01:36 vomiting profuse Home Medications Home Medications Medication Instructions Recorded Confirmed Type aspirin 81 mg PO DAILY 06/14/18 06/14/18 History atenolol 50 mg PO QAM 06/14/18 06/14/18 History cholecalciferol (vitamin D3) 1,000 unit PO DAILY 06/14/18 06/14/18 History [Vitamin D3] irbesartan 150 mg PO DAILY 06/14/18 06/14/18 History simvastatin 40 mg PO HS 06/14/18 06/14/18 History zolpidem 10 mg PO HS PRN 06/14/18 06/14/18 History Patient History Medical History 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 and bilateral salpingo-oophorectomy Stage TII N0M0 stage IIB Status post external beam radiation as well as HDR boost completed 02/06/2005" Social History Preferred Language: [place] Rican Communication Ability: Effective Intraoperative Neuro Tech Required: No Beliefs That Will Affect Care: None marital status: Current Living Situation: Alone current occupational status: retired Other Information That Helps Us Care for You: No Feels Safe at Home: Yes Safety Concerns: Feels Safe At This Time Smoking Status: Never smoker Do You Dip or Chew Tobacco: No Second Hand Exposure: No Tobacco Cessation Education Requested by Patient: No Hx Alcohol Use: No Hx Substance Use: No Review of Systems Constitutional: no fatigue, no weakness and no weight loss Eyes: no blind spots, no loss of peripheral vision and no worsening vision Respiratory: no cough, no dyspnea and no wheezing Cardiovascular: no chest pain, no dyspnea on exertion, no palpitations and no edema Gastrointestinal: no abdominal pain, no nausea, no vomiting and no change in stools Genitourinary: no urinary hesitancy and no urinary incontinence Musculoskeletal: Pain and swelling right calf. Neurologic: + loss of sensation; no localized weakness, no lack of coordination, no syncope, no headache(s) and no abnormal speech Physical Exam Constitutional: Patient appears calm, comfortable, alert and oriented x4 Eyes: PERRLA, no changes in visual sullivan ENMT: external ear and nose normal, oropharynx normal Neck: trachea midline, no thyromegaly Respiratory: normal respiratory effort, lungs clear to auscultation Cardiovascular: RRR, no murmur, no edema Gastrointestinal (Abdomen): normal bowel sounds, soft, nontender, no hepatosplenomegaly Musculoskeletal: no cyanosis or clubbing, extremities motor strength 5/5 Skin: Localized bruising to right calf and right shoulder Neurologic: PERRL, EOMI, accommodation nl, no face palsy, no dysarthria CN 's II-XI intact bilaterally and moves all extremities Patient reports mild decrease in sensation to right side of face Results & Data Vital Signs (Past 12 Hours) Vital Signs Temp Pulse Pulse Pulse Resp BP BP 06/14/18 05:03 36.5 C 94 H 18 159/61 H 06/14/18 04:33 36.4 C L 94 H 20 142/57 H 06/14/18 04:22 36.4 C L 94 H 89 20 142/57 H 06/14/18 04:01 86 14 150/81 H 06/14/18 03:46 81 23 157/65 H 06/14/18 03:31 78 16 145/80 H 06/14/18 03:17 99 H 22 147/105 H 06/14/18 03:02 74 22 133/66 06/14/18 02:45 82 18 139/61 06/14/18 02:30 102 H 18 149/87 H 06/14/18 02:15 36.4 C L 84 26 H 150/70 H 06/14/18 02:12 91 H 27 H 139/64 06/14/18 01:23 36.7 C 86 18 146/80 H 06/14/18 01:14 Pulse Ox 06/14/18 05:03 97 06/14/18 04:33 97 06/14/18 04:22 100 06/14/18 04:01 98 06/14/18 03:46 97 06/14/18 03:31 98 06/14/18 03:17 99 06/14/18 03:02 96 06/14/18 02:45 95 06/14/18 02:30 98 06/14/18 02:15 97 06/14/18 02:12 98 06/14/18 01:23 97 06/14/18 01:14 98 (1) Cerebrovascular accident CVA mechanism: unspecified Qualified Code(s): I63.9 - Cerebral infarction, unspecified
--- NOTE | 2018-06-14 06:14 | Emergency Department Note ---
Entered by Ashley Jerome acting as a scribe for History of Present Illness General Chief complaint: Stroke Alert Stated complaint: STROKE Time Seen by Provider: 06/14/18 01:19 Source: patient and EMS Mode of arrival: EMS Limitations: no limitations History of Present Illness Provider complaint: Stroke alert Onset (ago): hour(s) (around 0000 today) Location: head Radiation: non-radiation Pain Consistency: + other (episode) Quality: + other (stroke alert) Associated symptoms: + weakness (right extremities) and + other (Additional symptoms: slurred speech) The patient is a 78 year old female with a history of endometrial carcinoma who presents to the Emergency Room with complaints of an episode of a weakness and slurred speech occurring around 0000 today. Per EMS, the patient developed slurred speech and numbness in the right arm while she was getting ready for bed. EMS states that the patient also could not move her right extremities. He notes that the patient's symptoms now seem somewhat improved and that she can move her right leg but is still unable to stand. The patient agrees that she feels a little better because she now feels sensation in her extremities. She notes she can now move her right leg also. She states that her speech may have improved slightly but is still slurred compared to baseline. She denies experiencing similar symptoms in the past. She reports that she regularly takes baby Aspirin, Atenolol, and a blood pressure medication but no blood thinners. No prior history of similar events. No prior history of TIA or stroke. No recent illness or trauma. A stroke alert was called on the patient prior to arrival and upon arrival here patient immediately went to CAT scan for neuro imaging prior to coming to room A1. Home Medications Home Medications Medication Instructions Recorded Confirmed Type aspirin 81 mg PO DAILY 06/14/18 06/14/18 History atenolol 50 mg PO QAM 06/14/18 06/14/18 History cholecalciferol (vitamin D3) 1,000 unit PO DAILY 06/14/18 06/14/18 History [Vitamin D3] irbesartan 150 mg PO DAILY 06/14/18 06/14/18 History simvastatin 40 mg PO HS 06/14/18 06/14/18 History zolpidem 10 mg PO HS PRN 06/14/18 06/14/18 History Allergies Allergy/AdvReac Type Severity Reaction Status Date / Time latex Allergy Unknown RASH Verified 06/14/18 01:36 Penicillins Allergy Unknown RASH Verified 06/14/18 01:36 Sulfa (Sulfonamide Allergy Unknown "MAKE MY Verified 06/14/18 01:36 Antibiotics) HEART RATE GO UP" acetaminophen AdvReac Intermediate extreme Unverified 06/14/18 01:36 nervous feeling and anxiety oxycodone AdvReac Intermediate extreme Unverified 06/14/18 01:36 nervous feeling and anxiety seafood Allergy Severe nausea and Uncoded 06/14/18 01:36 vomiting profuse Past Med/Surg History Medical History 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 and bilateral salpingo-oophorectomy Stage TII N0M0 stage IIB Status post external beam radiation as well as HDR boost completed 02/06/2005" Social History Preferred Language: Armenian Communication Ability: Effective Contact Manager Required: No Beliefs That Will Affect Care: None marital status: Current Living Situation: Alone current occupational status: retired Other Information That Helps Us Care for You: No Feels Safe at Home: Yes Safety Concerns: Feels Safe At This Time Smoking Status: Never smoker Do You Dip or Chew Tobacco: No Second Hand Exposure: No Tobacco Cessation Education Requested by Patient: No Hx Alcohol Use: No Hx Substance Use: No Review of Systems See HPI for pertinent positives & negatives. and A total of 10 systems reviewed and were otherwise negative Physical Exam Vital Signs Vital Signs - 24 hr 06/14/18 01:14 06/14/18 01:23 06/14/18 02:12 Temperature 36.7 C Temperature Source Oral Sepsis Recent Fever Within 48 Hours No Sepsis Action Taken by Nursing No Action Required Pulse Rate 86 Pulse Rate [Left Apical] Pulse Rate [Left Finger] 91 H Pulse Rhythm [Left Apical] Pulse Strength [Left Apical] Respiratory Rate 18 27 H Respiratory Effort / Characteristics Non-Labored Respiratory Depth Normal Respiratory Pattern Blood Pressure 146/80 H Blood Pressure [Left Arm] 139/64 Blood Pressure Mean 102 Blood Pressure Mean [Left Arm] 89 Blood Pressure Position [Left Arm] Pulse Oximetry 98 97 98 Oxygen Delivery Method Room Air Room Air Room Air 06/14/18 02:15 06/14/18 02:30 06/14/18 02:45 Temperature 36.4 C L Temperature Source Oral Sepsis Recent Fever Within 48 Hours Sepsis Action Taken by Nursing Pulse Rate Pulse Rate [Left Apical] Pulse Rate [Left Finger] 84 102 H 82 Pulse Rhythm [Left Apical] Pulse Strength [Left Apical] Respiratory Rate 26 H 18 18 Respiratory Effort / Characteristics Non-Labored Spontaneous Respiratory Depth Normal Respiratory Pattern Regular Blood Pressure Blood Pressure [Left Arm] 150/70 H 149/87 H 139/61 Blood Pressure Mean Blood Pressure Mean [Left Arm] 96 107 87 Blood Pressure Position [Left Arm] Sitting Sitting Pulse Oximetry 97 98 95 Oxygen Delivery Method Room Air Room Air Room Air 06/14/18 03:02 06/14/18 03:17 06/14/18 03:31 Temperature Temperature Source Sepsis Recent Fever Within 48 Hours Sepsis Action Taken by Nursing Pulse Rate Pulse Rate [Left Apical] Pulse Rate [Left Finger] 74 99 H 78 Pulse Rhythm [Left Apical] Pulse Strength [Left Apical] Respiratory Rate 22 22 16 Respiratory Effort / Characteristics Respiratory Depth Respiratory Pattern Blood Pressure Blood Pressure [Left Arm] 133/66 147/105 H 145/80 H Blood Pressure Mean Blood Pressure Mean [Left Arm] 88 119 101 Blood Pressure Position [Left Arm] Pulse Oximetry 96 99 98 Oxygen Delivery Method Room Air Room Air Room Air 06/14/18 03:46 06/14/18 04:01 06/14/18 04:22 Temperature 36.4 C L Temperature Source Oral Sepsis Recent Fever Within 48 Hours Sepsis Action Taken by Nursing Pulse Rate 94 H Pulse Rate [Left Apical] 89 Pulse Rate [Left Finger] 81 86 Pulse Rhythm [Left Apical] Pulse Strength [Left Apical] Respiratory Rate 23 14 20 Respiratory Effort / Characteristics Non-Labored Spontaneous Respiratory Depth Normal Respiratory Pattern Regular Blood Pressure Blood Pressure [Left Arm] 157/65 H 150/81 H 142/57 H Blood Pressure Mean Blood Pressure Mean [Left Arm] 95 104 85 Blood Pressure Position [Left Arm] Lying Pulse Oximetry 97 98 100 Oxygen Delivery Method Room Air Room Air 06/14/18 04:33 06/14/18 05:03 06/14/18 05:33 Temperature 36.4 C L 36.5 C 36.6 C Temperature Source Oral Oral Oral Sepsis Recent Fever Within 48 Hours Sepsis Action Taken by Nursing Pulse Rate Pulse Rate [Left Apical] 94 H 94 H 85 Pulse Rate [Left Finger] Pulse Rhythm [Left Apical] Regular Regular Regular Pulse Strength [Left Apical] Normal Normal Normal Respiratory Rate 20 18 20 Respiratory Effort / Characteristics Non-Labored Spontaneous Non-Labored Spontaneous Non-Labored Spontaneous Respiratory Depth Normal Normal Normal Respiratory Pattern Regular Regular Regular Blood Pressure Blood Pressure [Left Arm] 142/57 H 159/61 H 122/54 L Blood Pressure Mean Blood Pressure Mean [Left Arm] 85 93 76 Blood Pressure Position [Left Arm] Lying Lying Lying Pulse Oximetry 97 97 97 Oxygen Delivery Method Room Air Room Air Room Air GENERAL: alert, well appearing, well nourished, no distress, non-toxic EYE EXAM: normal conjunctiva, PERRL and EOM's grossly intact OROPHARYNX: no exudate, no erythema, lips, buccal mucosa, and tongue normal and mucous membranes are moist NECK: supple, no nuchal rigidity, no adenopathy, non-tender LUNGS: Clear to auscultation. Normal chest wall mechanics, no w/r/r HEART: no murmurs, S1 normal and S2 normal CHEST: Well healed surgical scars secondary to prior mastectomy. ABDOMEN: abdomen soft, non-tender, normo-active bowel sounds, no masses, no rebound or guarding. BACK: Back is symmetrical on inspection and there is no deformity, no midline tenderness, no CVA tenderness. SKIN: no rashes and no bruising, no petechiae UPPER EXTREMITIES: upper extremities are grossly normal. LOWER EXTREMITIES: No pitting edema. FROM, nml pulses b/l. NEURO EXAM: NIH stroke score of 3. Weakness to right upper extremity with slight ataxia. Lower extremities have normal strength and no ataxia. Mild dysarthria, no facial droop. Course 0122: The patient was evaluated in room A1. A complete history and physical exam was performed. Paramedics at the bedside stating the patient's current exam now is markedly improved compared to his exam on arrival at her house. 0131: [facility] called at this time to inform me that the patient's head CT is negative. 0147: I called pharmacy for tPA. 0156: The patient is still being evaluated by the telestroke neurologist. 0159: The patient was administered tPA at this time. 0214: I reevaluated the patient and she was still speaking with the telestroke neurologist. The tPA is running and her vital signs are stable. 0300: Upon reevaluation, the patient is resting. I discussed the findings and the treatment plan with the patient. She expresses agreement and understanding. I spoke with Dr. Cochran of the [facility]. The patient will be evaluated for further management. Consultations Consultation #1: [facility] called at this time to inform me that the patient's head CT is negative. Time: 01:31 Consultation #2: I called pharmacy for tPA at this time. Time: 01:47 Consultation #3: I spoke with Dr. Cochran of the [facility]. The patient will be evaluated for further management. Time: 03:00 Administered Medications Potassium Chloride/Sodium Chloride (Normal Saline W/20 Meq Kcl) 20 meq in 1,000 mls @ 100 mls/hr IV .Q10H BETSY Stop: 07/14/18 04:48 Last Admin: 06/14/18 05:08 Dose: 100 mls/hr Documented by: [id number] Ioversol (Optiray 320 125ml) 120 ml IV ONCE PRN PRN Reason: Interaction Checking Stop: 06/18/18 04:23 Last Admin: 06/14/18 04:25 Dose: 1 ml Documented by: [id number] Discontinued Medications Diphenhydramine HCl (Benadryl) 25 mg IV NOW STA Stop: 06/14/18 03:06 Last Admin: 06/14/18 03:11 Dose: 25 mg Documented by: [id number] Alteplase, Recombinant 55.8 mg (/ EMPTY BAG) 55.8 mls @ 55.8 mls/hr IV TODAY@0215 [facility]; Protocol Stop: 06/14/18 03:14 Last Infusion: 06/14/18 03:06 Dose: 0 mls/hr Documented by: [id number] Cosigned by: [id number] Admin: 06/14/18 02:06 Dose: 55.8 mls/hr Documented by: [id number] Cosigned by: [id number] Alteplase, Recombinant (Activase) 6.2 mls @ 0 mls/min IV TODAY@0200 [facility] Stop: 06/14/18 02:01 Last Admin: 06/14/18 02:03 Dose: 6.2 mls/min Documented by: [id number] Cosigned by: [id number] N/A (Primary [place], [place] [employer] ([id number])) mls @ 0 mls/hr IV ONE ONE Stop: 06/14/18 02:01 Last Admin: 06/14/18 02:10 Dose: 55.6 mls/hr Documented by: [id number] Medical Decision Making Differential Diagnosis Differential Diagnosis includes but is not limited to ischemic stroke, hemorrhagic stroke, bells palsy, mass, neoplasm, migraine headache, seizure, owens barachnoid hemorrhage, TIA, and transient global amnesia. Medical Records Attestation: I reviewed the patient's medical records. Home Medications Current Medication List: was personally reviewed by me Laboratory Data Attestation: I reviewed the patient's lab results. Result diagrams: 06/14/18 01:28 06/14/18 01:28 Lab Results 06/14/18 06/14/18 06/14/18 Range/Units 01:28 01:28 01:28 WBC 9.53 (4.8-10.8) K/uL RBC 4.43 (4.2-5.4) M/uL Hgb 13.2 (12.0-16.0) g/dL Hct 38.9 (37-47) % MCV 87.8 (80-100) fL MCH 29.8 (25-34) pg MCHC 33.9 (32-36) g/dL RDW Std Deviation 44.4 (36.4-46.3) fL RDW Coeff of [place]vid[place] 13.8 (11.5-14.5) % Plt Count 169 (130-400) K/uL MPV 9.9 (7.4-10.4) fL Immature Gran % (Auto) 0.1 % Neut % (Auto) 74.2 % Lymph % (Auto) 14.0 % [place] % (Auto) 8.8 % Eos % (Auto) 2.7 % Baso % (Auto) 0.2 % Immature Gran # (Auto) 0.01 (0.00-0.02) K/uL Neut # (Auto) 7.07 H (1.4-6.5) K/uL Lymph # (Auto) 1.33 (1.2-3.4) K/uL [place] # (Auto) 0.84 H (0.11-0.59) K/uL Eos # (Auto) 0.26 (0-0.5) K/uL Baso # (Auto) 0.02 (0-0.2) K/uL PT 10.9 (9.0-12.0) Seconds INR 1.1 (0.9-1.1) APTT 25.1 (21.0-31.0) Seconds PTT Ratio 0.9 Sodium 139 (136-145) mmol/L Potassium 3.6 (3.5-5.1) mmol/L Chloride 106 (98-107) mmol/L Carbon Dioxide 28 (21-32) mmol/L Anion Gap 5.0 (3-11) BUN 27 H (7-18) mg/dl Creatinine 1.18 (0.6-1.2) mg/dl Est Cr Clr Drug Dosing 36.9 ml/min Est GFR ( Amer) 51.9 Est GFR (Non-Af Amer) 44.8 BUN/Creatinine Ratio 22.7 H (10-20) Glucose 167 H (70-99) mg/dl Calcium 9.8 (8.5-10.1) mg/dl Magnesium 1.6 L (1.8-2.4) mg/dl Total Bilirubin 0.4 (0.2-1) mg/dl AST 14 L (15-37) U/L ALT 23 (12-78) U/L Alkaline Phosphatase 103 (45-117) U/L Troponin I < 0.015 (0-0.045) ng/ml Total Protein 8.5 H (6.4-8.2) gm/dl Albumin 3.9 (3.4-5.0) gm/dl Globulin 4.6 H (2.5-4.0) gm/dl Albumin/Globulin Ratio 0.8 L (0.9-2) Urine Color Urine Appearance (Clear) Urine pH (4.5-7.5) Ur Specific [place] (1.000-1.030) Urine Protein (Negative) Urine Glucose (UA) (Negative) Urine Ketones (Negative) Urine Blood (Negative) Urine Nitrite (Negative) Urine Bilirubin (Negative) Urine Urobilinogen (Negative) Ur Leukocyte Esterase (Negative) Urine WBC (Auto) (0-5) /hpf Urine RBC (Auto) (0-4) /hpf U Hyaline Cast (Auto) (0-5) /lpf U Epithel Cells (Auto) (0-5) /lpf Urine Bacteria (Auto) (Negative) Blood Type Antibody Screen 06/14/18 06/14/18 Range/Units 01:28 03:30 WBC (4.8-10.8) K/uL RBC (4.2-5.4) M/uL Hgb (12.0-16.0) g/dL Hct (37-47) % MCV (80-100) fL MCH (25-34) pg MCHC (32-36) g/dL RDW Std Deviation (36.4-46.3) fL RDW Coeff of [place]vidio (11.5-14.5) % Plt Count (130-400) K/uL MPV (7.4-10.4) fL Immature Gran % (Auto) % Neut % (Auto) % Lymph % (Auto) % [place] % (Auto) % Eos % (Auto) % Baso % (Auto) % Immature Gran # (Auto) (0.00-0.02) K/uL Neut # (Auto) (1.4-6.5) K/uL Lymph # (Auto) (1.2-3.4) K/uL [place] # (Auto) (0.11-0.59) K/uL Eos # (Auto) (0-0.5) K/uL Baso # (Auto) (0-0.2) K/uL PT (9.0-12.0) Seconds INR (0.9-1.1) APTT (21.0-31.0) Seconds PTT Ratio Sodium (136-145) mmol/L Potassium (3.5-5.1) mmol/L Chloride (98-107) mmol/L Carbon Dioxide (21-32) mmol/L Anion Gap (3-11) BUN (7-18) mg/dl Creatinine (0.6-1.2) mg/dl Est Cr Clr Drug Dosing ml/min Est GFR ( Amer) Est GFR (Non-Af Amer) BUN/Creatinine Ratio (10-20) Glucose (70-99) mg/dl Calcium (8.5-10.1) mg/dl Magnesium (1.8-2.4) mg/dl Total Bilirubin (0.2-1) mg/dl AST (15-37) U/L ALT (12-78) U/L Alkaline Phosphatase (45-117) U/L Troponin I (0-0.045) ng/ml Total Protein (6.4-8.2) gm/dl Albumin (3.4-5.0) gm/dl Globulin (2.5-4.0) gm/dl Albumin/Globulin Ratio (0.9-2) Urine Color Yellow Urine Appearance Clear (Clear) Urine pH 6.5 (4.5-7.5) Ur Specific [place] 1.014 (1.000-1.030) Urine Protein Trace H (Negative) Urine Glucose (UA) Negative (Negative) Urine Ketones Negative (Negative) Urine Blood Trace H (Negative) Urine Nitrite Negative (Negative) Urine Bilirubin Negative (Negative) Urine Urobilinogen Negative (Negative) Ur Leukocyte Esterase Negative (Negative) Urine WBC (Auto) 1-5 (0-5) /hpf Urine RBC (Auto) 0-4 (0-4) /hpf U Hyaline Cast (Auto) 1-5 (0-5) /lpf U Epithel Cells (Auto) 10-20 H (0-5) /lpf Urine Bacteria (Auto) Negative (Negative) Blood Type A Negative Antibody Screen NEGATIVE Imaging Data Attestation: I personally reviewed and interpreted this imaging study as follows: My Impression: Radiology results as stated below per my review and interpre tation: XR CHEST 1V: Findings: No cardiomegaly, no effusions, no wide mediastinum, no acute pulmonary edema, no focal consolidation. Sternotomy wires noted. Radiologist's Impression: Radiology results as stated below per my review and the radiologist's interpretation: CT HEAD: No ICH, mass effect, or midline shift. No acute cortical infarct. Age-related changes. Radiologist: Marietta Bach MD Study ready at 0126 and initial results transmitted at 0129. CTA HEAD: No large vessel occlusion. Radiologist: Marietta Bach MD Study ready at 0429 and initial results transmitted at 0506. CTA NECK: No high-grade stenosis or occlusion. Thyroid nodules and additional incidental findings. Radiologist: Marietta Bach MD Study ready at 0435 and initial results transmitted at 0500. ECG Data Attestation: I personally reviewed and interpreted this ECG as follows: Indication: other (stroke alert) Rate (beats per minute): 90 Rhythm: normal sinus Findings: + other (baseline artifact), + 1st degree AV block and + LBBB; no acute ischemic change and no ectopy Blood Pressure Blood Pressure Findings: Normal blood pressure MDM Narrative Patient well-appearing with concerning story for possible stroke and stroke alert called in the field. Upon arrival patient symptoms already improving and first NIH stroke score was 3. Case was discussed with Marti tele-neurologist given patient still well within the window for TPA. 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 Patient was hemodynamically stable throughout, not significantly hypertensive. Other labs reassuring. CT head reported to me by stat read radiologist as negative. Consent form for TPA signed at bedside after lengthy discussion with telemetry neurologist and patient. After discussion with tele-neurologist, CT angiography of the head and neck also added to be performed after completion of TPA. Case discussed with hospitalist for additional evaluation and management. Patient was found to have a left bundle branch block on EKG however this was old as previous records were obtained from cardiology evaluation earlier this year. Patient does have a history of prior valve replacement. Patient had no other new or concerning symptoms upon report and continued to improve during infusion of TPA. Impression & Plan Cerebrovascular accident Critical Care Time I have personally spent greater than 60 minutes of critical care time in the direct management of this patient. This includes bedside care, interpretation of diagnostic studies, and testing, discussion with consultants, patient, and family members, and other required patient management activities. This 60 minutes is in excess of all separately billable procedures. Critical Care Time: Yes Total Critical Care Time: 60 Discharge Plan Visit Data *Final* Discharge Date/Time: 06/14/18 04:02 Chief Complaint: Stroke Alert Stated Complaint: STROKE ED Provider: Amalia Simms Discharge Problem: Cerebrovascular accident Patient Disposition: Admitted As Inpatient Discharge Instructions Interventions: ED Discharge Assessment Last Done: 06/14/18 04:02 Discharge Problem: Cerebrovascular accident Qualifiers: CVA mechanism: unspecified Qualified Code(s): I63.9 - Cerebral infarction, unspecified The scribe's documentation has been prepared under my direction and personally reviewed by me in its entirety. I confirm that the note above accurately re flects all work, treatment, procedures, and medical decision making performed by me.
--- NOTE | 2018-06-14 07:19 | CT Scan Report ---
CT head/brain wo con CLINICAL HISTORY: Right arm weakness. Suspected acute stroke. COMPARISON STUDY: No previous studies for comparison. TECHNIQUE: Axial CT of the brain is performed from the vertex to the skull base. IV contrast was not administered for this examination. A dose lowering technique was utilized adhering to the principles of ALARA. CT DOSE: 537.48 mGy.cm FINDINGS: No intra or extra-axial mass lesions are visualized. There is no CT evidence of acute cortical infarc tion. There is no evidence of midline shift. There is no acute hemorrhage. No calvarial fractures ar e visualized. There are patchy white matter hypodensities likely on a small vessel basis. There is no evidence of pathologic ventricular dilatation. There is no evidence of acute sinusitis IMPRESSION: No acute intracranial findings Electronically signed by: Sonny Christensen M.D. 06/14/2018 7:18 AM
--- NOTE | 2018-06-14 07:20 | XRay Report ---
XR chest 1V portable CLINICAL HISTORY: stroke COMPARISON STUDY: No previous studies for comparison. FINDINGS: There are postsurgical changes of a midline sternotomy and aortic valve replacement. The he art is at the upper limits of normal in size. There is no failure. There is no focal pulmonary consol idation. Slight hilar prominence is felt to be secondary to a vascular summation. There is a 5 mm den sity at the left lung base, likely postinflammatory or a summation.[ IMPRESSION: No active disease in the chest. Electronically signed by: Sonny Christensen M.D. 06/14/2018 7:19 AM
--- NOTE | 2018-06-14 07:55 | XRay Report ---
XR shoulder RT min 2V routine CLINICAL HISTORY: Trauma. Right shoulder pain and ecchymosis. COMPARISON: June 2012 DISCUSSION: No fractures or dislocations are visualized. There is prominent soft tissue edema within the lateral aspect of the upper arm. IMPRESSION: 1. No acute fractures or dislocations 2. Prominent soft tissue edema within the lateral aspect of the upper arm Electronically signed by: Sonny Christensen M.D. 06/14/2018 7:54 AM
--- NOTE | 2018-06-14 07:56 | XRay Report ---
XR tibia fibula RT 2V CLINICAL HISTORY: Pain status post trauma. Ecchymosis. COMPARISON: None. DISCUSSION: No acute fractures or dislocations are visualized. There is soft tissue edema within the lateral aspect of the mid to lower leg. IMPRESSION: 1. Soft tissue edema within the lateral aspect of the mid to lower leg 2. No fractures identified Electronically signed by: Sonny Christensen M.D. 06/14/2018 7:55 AM
--- NOTE | 2018-06-14 07:59 | CT Scan Report ---
CT angio neck with con CLINICAL HISTORY: Acute stroke COMPARISON STUDY: Carotid Doppler ultrasound performed November 2012 TECHNIQUE: CT angiography was performed from the aortic arch to the skull base. MIP imaging was perfo rmed. The patient was scanned in a dynamic helical fashion during intravenous administration of 120 c c of Optiray 320. A dose lowering technique was utilized adhering to the principles of ALARA. CT DOSE: 487.35 mGy.cm Technique: CT angiogram of the carotid and vertebral arteries was obtained using intravenous contrast and 3-D reconstruction. NASCET criteria was utilized. Findings: The right carotid revealed no evidence of aneurysm and no evidence of dissection. There is no evidenc e of hemodynamic significant stenosis. The left carotid revealed no evidence of hemodynamic significant stenosis. There is no evidence of an eurysm. There is no evidence of dissection. There is no evidence of hemodynamically significant vertebral stenosis. There is no evidence of verte bral dissection. There is a multinodular thyroid gland. Degenerative changes are present within the cervical spine. IMPRESSION: No evidence of hemodynamically significant carotid or vertebral artery stenosis. No evidence of disse ction. Electronically signed by: Sonny Christensen M.D. 06/14/2018 7:58 AM
--- NOTE | 2018-06-14 08:01 | CT Scan Report ---
CT angio head w con CLINICAL HISTORY: cva TECHNIQUE: CT angiography of the head was performed in a dynamic helical fashion during intravenous a dministration of 120 cc of Optiray 320. MIP imaging was performed. A dose lowering technique was util ized adhering to the principles of ALARA. CT DOSE: COMPARISON STUDY: Noncontrast head CT dated 06/14/2018 FINDINGS: There are no lesion suspicious for aneurysm. There are no major intracranial branch occlusi ons. The dural venous sinuses appear patent. IMPRESSION: Unremarkable CT angiography of the brain. Electronically signed by: Sonny Christensen M.D. 06/14/2018 8:00 AM
[2018-06-14] MEDS: CHOLECALCIFEROL 1,000 UNITS TAB PO SCH (08:44)
--- NOTE | 2018-06-14 09:52 | Family Medicine Progress Note ---
Date of Service June 14, 2018 Assessment & Plan (1) Cerebrovascular accident: Mari is a 78-year-old female who presented to the ED with right-sided upper and lower extremity weakness and dysarthria and admitted for CVA. She has been admitted to the ICU for telemetry, serial troponins, and monitoring. Cerebrovascular accident MRI shows findings consistent with multiple acute infarcts. - Now asymptomatic, minimal residual deficits. CThead negative, CTA head and neck negative Status post TPA protocol looking now transitioned to aspirin Lipid panel pending TTE: EF 65-70%, prosthetic AV well seated, mi MR, mi TR, no wall motion abnormality, no shunt appreciated w/ 10cc agitated saline. LA/RA mi dilitation - Neuro Consulted. Recommended follow-up A1c and lipid profile, avoiding dehydration and hypotension, and follow-up in neurology clinic in 1 month. Appreciate conditions. -Given the multiple small infarcts and good response to TPA with minimal residual deficits at this time am suspicious for embolic event. Given that CTA head and neck did not show carotid disease she would benefit for evaluation of further cardioembolic origin. Recommend ARNOLDO to evaluate for PFO and/or mural thrombi. - PT/OT consult LBBB - no Glenys>1mm - New compared to prior - Echo as above - Continue to follow - troponin negative HTN - PACS SPECIALIST Atenolol 50mg daily - Irbesartan 50mg PO daily HLD - Simvastatin 40mg qHS PACS SPECIALIST. May benefit from intensification of statin regimen, may adjust pending lipid panel results DVT Prophylaxsis - Held in setting of TPA - ASA starting today post TPA protocol - SCDs (2) Hypertension: (3) Hyperlipidemia LDL goal <70: (4) Admitted to intensive care unit: (5) Received intravenous tissue plasminogen activator (tPA) in emergency department: (6) DVT prophylaxis: Supervising Physician Co-Signing Physician Notes I personally examined the patient and verified all villanueva points of history and exam, discussed case, and agree with decision making with Dr Cheatham feeling better. just a little residual numbness hand. vitals noted nad breathing unlabored no pallor or icterus. moves arms well, no facial droop, speech clear StrokeMRI certainly makes it appear like it was something more central embolic, and she had a carotid stenosis certainly that could be plausible to be carotid plaque rupture that was then further fragmented by the thrombolytics, but given that her carotids are clear it seems that a central embolic source would be the most likely culprit. She is not showing atrial fibrillation and her transthoracic echo was clear. We will definitely need to give strong consideration to a transesophageal echo versus ongoing cardiac monitoring versus both. We discussing with the team. Discussed this possibility with the patient as well, she expresses good understanding. Continue current supportive care for now. Pattie Glaser is a 78-year-old female with a past medical history of endometrial carcinoma, hypertension, hyperlipidemia, and AVR who presented with right upper extremity weakness, right lower extremity weakness, and dysarthria without difficulty with word finding. She was evaluated with a telemetry stroke consults with a presentation consistent with CVA despite a negative CT head and was placed on TPA protocol overnight. TPA was completed this morning. She remains in the ICU on telemetry with troponins being followed and an cardiac echo completed but not yet read. She reports that she did well overnight. She feels that she is at her normal baseline level of health and function. She is not experiencing any right-sided weakness today. She has a somewhat decreased appetite. She does note that she has painful bruising on her right lateral calf, shoulder, and hip. She thinks this bruising occurred after she had a fall prior to admission due to her weakness. She did not hit her head, and had no loss of consciousness. She denies any fever, chills, night sweats, headache, very confusion, syncope, presyncope, dizziness, lightheadedness, weakness, dysarthria, rash, or difficulty word finding this morning. Review of Systems Constitutional: no fever, no chills, no body aches and no fatigue Eyes: no blind spots, no diplopia, no spots in vision, no worsening vision and no problem reported Ear, Nose, Mouth, Throat: no dizziness, no nasal congestion, no sore throat, no change in voice and no problem reported Respiratory: no cough, no chest congestion, no dyspnea and no dyspnea on exertion Cardiovascular: no chest pain, no chest pain at rest, no chest pain with activity, no radiating jaw, neck or arm pain, no dyspnea and no orthopnea Gastrointestinal: no abdominal pain, no nausea, no vomiting, no constipation and no diarrhea/loose stools Genitourinary: no dysuria and no difficulty urinating Musculoskeletal: + body aches; no muscle weakness Integumentary: + wounds; no rash and no lesions Neurologic: no unsteadiness, no localized weakness, no generalized weakness, no paralysis, no loss of sensation, no tingling, no numbness, no paresthesia, no lack of coordination, no dizziness, no headache(s), no abnormal speech and no confusion Physical Exam Physical Exam: General: A&Ox3. NAD. Cooperative. HEENT: Atraumatic, normocephalic. Pulm: CTAB A&P. -wheezes, -rales, -rhonchi. Symmetrical chest rise. No increase work of breathing. No respiratory distress. Cardiac: RRR, -mrg. Radial pulses intact and symmetrical. Abdominal: Nontender, nondistended, soft. BS present. Neuro: 5 out of 5 strength with normal range of motion (active and passive) to ankle dorsiflexion/plantar flexion, knee flexion/extension, hip flexion, shoulder flexion/abduction/internal rotation/external rotation, elbow flexion/extension, wrist flexion/extension, finger flexion/extension, and intraosseal. Pupils equal and equally reactive to light and accommodation bilaterally. Extraocular movements intact without nystagmus. Visual sullivan without cut, visual acuity grossly intact. Facial strength and sensation intact in all distributions without asymmetry. Tongue protrudes midline. Shoulder shrug 5/5. Results & Data Vital Signs (Past 12 Hours) Vital Signs Temp Pulse Pulse Pulse Resp BP BP 06/14/18 09:03 73 18 124/57 L 06/14/18 08:59 36.5 C 06/14/18 08:33 81 20 133/60 06/14/18 08:03 75 17 103/68 06/14/18 08:00 75 06/14/18 07:33 70 24 133/69 06/14/18 07:03 36.6 C 90 19 124/74 06/14/18 07:00 06/14/18 06:33 85 18 140/56 L 06/14/18 06:03 36.5 C 92 H 18 130/55 L 06/14/18 05:33 36.6 C 85 20 122/54 L 06/14/18 05:03 36.5 C 94 H 18 159/61 H 06/14/18 04:33 36.4 C L 94 H 20 142/57 H 06/14/18 04:22 36.4 C L 94 H 89 20 142/57 H 06/14/18 04:01 86 14 150/81 H 06/14/18 03:46 81 23 157/65 H 06/14/18 03:31 78 16 145/80 H 06/14/18 03:17 99 H 22 147/105 H 06/14/18 03:02 74 22 133/66 06/14/18 02:45 82 18 139/61 06/14/18 02:30 102 H 18 149/87 H 06/14/18 02:15 36.4 C L 84 26 H 150/70 H 06/14/18 02:12 91 H 27 H 139/64 06/14/18 01:23 36.7 C 86 18 146/80 H 06/14/18 01:14 Pulse Ox 06/14/18 09:03 99 06/14/18 08:59 06/14/18 08:33 98 06/14/18 08:03 99 06/14/18 08:00 06/14/18 07:33 98 06/14/18 07:03 98 06/14/18 07:00 97 06/14/18 06:33 97 06/14/18 06:03 97 06/14/18 05:33 97 06/14/18 05:03 97 06/14/18 04:33 97 06/14/18 04:22 100 06/14/18 04:01 98 06/14/18 03:46 97 06/14/18 03:31 98 06/14/18 03:17 99 06/14/18 03:02 96 06/14/18 02:45 95 06/14/18 02:30 98 06/14/18 02:15 97 06/14/18 02:12 98 06/14/18 01:23 97 06/14/18 01:14 98 Resident Activity Tracking Resident Involvement: Resident Care Provided Care Provided: Adult Hospital Medicine (1) Cerebrovascular accident CVA mechanism: unspecified Qualified Code(s): I63.9 - Cerebral infarction, unspecified
[2018-06-14] MEDS: IRBESARTAN 150 MG TAB PO SCH (11:13)
[2018-06-14] MEDS: ATENOLOL 50 MG TABLET PO SCH (11:13)
--- NOTE | 2018-06-14 12:41 | Magnetic Resonance Report ---
MRI OF THE BRAIN WITHOUT CONTRAST CLINICAL HISTORY: Stroke. History of TPA administration. COMPARISON STUDY: CT scan dated 06/14/2018 FINDINGS: Sagittal T1, axial diffusion, proton density and T2 weighted axial, coronal FLAIR, and axial T1-weigh jess images were acquired. No intra or extra-axial mass lesions are visualized There are multiple scattered foci of restricted water diffusion involving the left posterior frontal lobe, left parietal lobe, as well as the left temporal lobe. There are also foci the level of the lat eral margin of the thalamus and left periventricular deep white matter. The findings are consistent w ith multiple foci of acute infarction. There is no evidence of ventricular dilatation. Proton density T2-weighted and FLAIR images reveal scattered foci of increased T2 signal within the w jennifer matter, likely on a small vessel basis. In addition there are scattered lacunar infarcts. Gradient echo images demonstrate a 3 mm focus of susceptibility artifact within the left cerebellar h emisphere. This likely relates to an old tiny hemorrhagic focus. IMPRESSION: 1. Multiple scattered small foci of restricted water diffusion involving portions of the left frontal , parietal and temporal lobes. The findings are consistent with multiple acute infarcts. Electronically signed by: Sonny Christensen M.D. 06/14/2018 12:39 PM
--- NOTE | 2018-06-14 14:51 | Neurology Consultation ---
Date of Consultation June 14, 2018 Assessment & Plan (1) Cerebrovascular accident: This is a 78-year-old right-handed female who presents with acute ischemic stroke with almost complete resolution status post IV TPA with some residual punctate areas of ischemia in the left MCA territory. Stroke etiology is either large vessel or cardioembolic. Residual neurological deficits include trace weakness of the right upper extremity and mild sensory deficits over the right arm and leg. Stroke risk factors include hypertension and dyslipidemia. Recommendations: Patient will need a follow-up CT of the head 24 hours after IV TPA to rule out hemorrhagic conversion. If there is no hemorrhagic conversion on CT of the head, would recommend initiation of Plavix 75 mg daily for stroke prevention. Continue statin medication. If no arrhythmias are detected in hospital, would recommend 30-day air sampling and monitoring to rule out paroxysmal A. fib (especially since patient does report episodes of palpitations), since this would change her medical management if she had it. Follow-up hemoglobin A1c and lipid profile tomorrow morning for modifiable stroke risk factors Avoid dehydration and hypotension as this could extend her stroke. Blood pressure recommendations while in hospital 175/95-150/80 For the first month after hospital discharge, blood pressure recommendations 150/90-130/80. After the first month, blood pressure recommendations 130/80-110/70 Follow-up PT/OT and speech recommendations for discharge planning Neurological recommendations for stroke risk factor modifications: Total cholesterol goal 100-200, and LDL goal less than 100 Hemoglobin A1c goal less than 7 Encourage regular cardiovascular exercise at least 30 minutes 3 times per week Hospital Follow-up in neurology clinic in 1 month after discharge. Thank you for allowing me to participate in this patient's care. If there is any questions or concerns, feel free to call/page me. History of Present Illness Reason for Consultation: Consult for stroke status post IV TPA Attending Physician: Hood Bettencourt DO History of Present Illness This is a 78-year-old right-handed female who presents after acute onset of right hemiplegia, sensory deficits, and dysarthria. Reports that this suddenly occurred shortly after midnight. She did have a fall because of the acute hemiplegia. Patient called 911 and was brought to the emergency room under a stroke alert. She was given IV TPA. She reports that shortly after the infusion her symptoms started to resolve. She feels almost back to baseline with the exception of some mild sensory deficits on the right arm and leg. She feels that her speech is returned back to baseline and the numbness over the right side of her face has returned back to baseline. She denies any additional neurological symptoms. She has never had any strokelike events in the past. She was taking aspirin 81 mg daily at the time of this event. Patient denies any chest pain or abnormal headaches. She does report having intermittent palpitations. Echocardiogram was unremarkable for Cardiologic sources of stroke MRI of the brain report and images reviewed by myself. The patient has multiple punctate areas of acute ischemia in the left MCA territory (posterior left frontal, parietal, and temporal lobe). CTA of the head and neck was unremarkable Past medical history significant for hypertension, dyslipidemia, and endometrial cancer. She has had her aortic valve replaced and does have mitral regurg Family history: Mother with a stroke when she was 80. Social history: Patient is normally independent her activities of daily living. Very remote history of smoking when she was in her 20s. Allergies Allergy/AdvReac Type Severity Reaction Status Date / Time latex Allergy Unknown RASH Verified 06/14/18 01:36 Penicillins Allergy Unknown RASH Verified 06/14/18 01:36 Sulfa (Sulfonamide Allergy Unknown "MAKE MY Verified 06/14/18 01:36 Antibiotics) HEART RATE GO UP" acetaminophen AdvReac Intermediate extreme Unverified 06/14/18 01:36 nervous feeling and anxiety oxycodone AdvReac Intermediate extreme Unverified 06/14/18 01:36 nervous feeling and anxiety seafood Allergy Severe nausea and Uncoded 06/14/18 01:36 vomiting profuse Home Medications Home Medications Medication Instructions Recorded Confirmed Type aspirin 81 mg PO DAILY 06/14/18 06/14/18 History atenolol 50 mg PO QAM 06/14/18 06/14/18 History cholecalciferol (vitamin D3) 1,000 unit PO DAILY 06/14/18 06/14/18 History [Vitamin D3] irbesartan 150 mg PO DAILY 06/14/18 06/14/18 History simvastatin 40 mg PO HS 06/14/18 06/14/18 History zolpidem 10 mg PO HS PRN 06/14/18 06/14/18 History Patient History Medical History 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 and bilateral salpingo-oophorectomy Stage TII N0M0 stage IIB Status post external beam radiation as well as HDR boost completed 02/06/2005" Social History Preferred Language: Swiss Communication Ability: Effective Market Risk Analyst Required: No Beliefs That Will Affect Care: None marital status: Current Living Situation: Alone current occupational status: retired Other Information That Helps Us Care for You: No Feels Safe at Home: Yes Safety Concerns: Feels Safe At This Time Smoking Status: Never smoker Do You Dip or Chew Tobacco: No Second Hand Exposure: No Tobacco Cessation Education Requested by Patient: No Hx Alcohol Use: No Hx Substance Use: No Review of Systems Review of Systems: All systems reviewed & are unremarkable except as noted in HPI & below Physical Exam Physical Exam: Gen.: Patient is alert and oriented in no acute distress lying in bed Heart: Regular rate and rhythm Extremities: No gross deformities or rashes noted Neurological examination: Mental status: Patient is alert and oriented to person place and time. Able to give own history. Good fund of knowledge. Attention and concentration normal for the situation. Recent and remote memory intact Speech is fluent without any dysarthria or aphasia noted Cranial nerves: Funduscopic examination was unremarkable with no signs of papilledema. Pupils equally round and reactive to light. Extraocular muscles intact without nystagmus. No facial asymmetry noted. Facial sensation intact. Tongue midline. Good palatal elevation. Good shoulder shrug bilaterally. Hearing grossly intact voice. Strength: 5/5 both proximal and distal in all extremities. May have some trace weakness in the right upper extremity.Tone is normal. Sensation: Grossly intact to light touch in all extremities but does report d ecreased sensation over the right arm and leg Deep tendon reflexes: +2 in bilateral biceps and patellar. Coordination: Patient has good finger to nose without dysmetria Station within the bed is normal. Results & Data Vital Signs (Past 12 Hours) Vital Signs Temp Pulse Pulse Pulse Resp BP BP 06/14/18 14:00 36.8 C 74 142/73 H 06/14/18 13:01 74 14 06/14/18 13:00 72 27 H 131/61 06/14/18 12:16 74 18 128/68 06/14/18 12:15 74 06/14/18 12:06 77 22 128/68 06/14/18 11:02 76 18 141/66 H 06/14/18 10:30 72 19 122/47 L 06/14/18 10:03 72 131/52 L 06/14/18 09:33 36.6 C 75 14 134/61 06/14/18 09:03 73 18 124/57 L 06/14/18 08:59 36.5 C 06/14/18 08:33 81 20 133/60 06/14/18 08:03 75 17 103/68 06/14/18 08:00 75 06/14/18 07:33 70 24 133/69 06/14/18 07:03 36.6 C 90 19 124/74 06/14/18 07:00 06/14/18 06:33 85 18 140/56 L 06/14/18 06:03 36.5 C 92 H 18 130/55 L 06/14/18 05:33 36.6 C 85 20 122/54 L 06/14/18 05:03 36.5 C 94 H 18 159/61 H 06/14/18 04:33 36.4 C L 94 H 20 142/57 H 06/14/18 04:22 36.4 C L 94 H 89 20 142/57 H 06/14/18 04:01 86 14 150/81 H 06/14/18 03:46 81 23 157/65 H 06/14/18 03:31 78 16 145/80 H 06/14/18 03:17 99 H 22 147/105 H 06/14/18 03:02 74 22 133/66 06/14/18 02:45 82 18 139/61 Pulse Ox 06/14/18 14:00 98 06/14/18 13:01 97 06/14/18 13:00 97 06/14/18 12:16 98 06/14/18 12:15 06/14/18 12:06 96 06/14/18 11:02 98 06/14/18 10:30 98 06/14/18 10:03 98 06/14/18 09:33 06/14/18 09:03 99 06/14/18 08:59 06/14/18 08:33 98 06/14/18 08:03 99 06/14/18 08:00 06/14/18 07:33 98 06/14/18 07:03 98 06/14/18 07:00 97 06/14/18 06:33 97 06/14/18 06:03 97 06/14/18 05:33 97 06/14/18 05:03 97 06/14/18 04:33 97 06/14/18 04:22 100 06/14/18 04:01 98 06/14/18 03:46 97 06/14/18 03:31 98 06/14/18 03:17 99 06/14/18 03:02 96 06/14/18 02:45 95 (1) Cerebrovascular accident CVA mechanism: unspecified Qualified Code(s): I63.9 - Cerebral infarction, unspecified
[2018-06-14] MEDS: SIMVASTATIN 40 MG TAB PO SCH (21:25)
[2018-06-15] MEDS: NSS + 20MEQ KCL 20 MEQ/1,000 ML BAG IV SCH (01:22)
[2018-06-15 04:31] LABS: Magnesium 1.5 mg/dl (1.8-2.4); Phosphorus 2.3 mg/dl (2.5-4.9)
--- NOTE | 2018-06-15 06:38 | CT Scan Report ---
HEAD CT NONCONTRAST CT DOSE: 537.48 mGy.cm HISTORY: Stroke. 24 hr past TPA TECHNIQUE: Multiaxial CT images of the head were performed without the use of intravenous contrast. A utomated exposure control was utilized for this study. A dose lowering technique was utilized adheri ng to the principles of ALARA. Comparison: None. Findings: The paranasal sinuses and mastoid air cells are clear. The calvarium and skull base are int act. The ventricles and sulci are within normal limits. There is no mass, hematoma, midline shift, or acute infarct. The patient scattered small infarcts are better appreciated on the prior brain MRI. Impression: No acute intracranial abnormality. The patient's scattered small infarcts are better appreciated on t he prior brain MRI. Electronically signed by: Randall Rhodes M.D. 06/15/2018 6:36 AM
[2018-06-15 07:20] LABS: Basophils # (auto) 0.03 K/uL (0-0.2); Basophils % (auto) 0.5 %; Eosinophils # (auto) 0.33 K/uL (0-0.5); Eosinophils % (auto) 5.5 %; Hematocrit (blood only) 29.1 % (37-47); Hemoglobin 9.5 g/dL (12.0-16.0); Immature Granulocytes # (auto) 0.01 K/uL (0.00-0.02); Immature Granulocytes % (auto) 0.2 %; Lymphocytes # (auto) 0.98 K/uL (1.2-3.4); Lymphocytes % (auto) 16.3 %; Mean Corpuscular Hgb Conc 32.6 g/dL (32-36); Mean Corpuscular Volume 89.8 fL (80-100); Mean Platelet Volume 9.6 fL (7.4-10.4); Monocytes # (auto) 0.49 K/uL (0.11-0.59); Monocytes % (auto) 8.2 %; Neutrophils # (auto) 4.16 K/uL (1.4-6.5); Neutrophils % (auto) 69.3 %; Platelet Count 113 K/uL (130-400); RDW Coefficient of Variation 14.1 % (11.5-14.5); RDW Standard Deviation 46.3 fL (36.4-46.3); Red Blood Count 3.24 M/uL (4.2-5.4)
[2018-06-15 07:42] LABS: BUN Creatinine Ratio 14.4 (10-20); Calcium 8.1 mg/dl (8.5-10.1); Creatinine Clr Calc Pharmacy 58.9 ml/min; Est GFR (African American) 91.2; Est GFR (Non-African American) 78.7
[2018-06-15] MEDS: IRBESARTAN 150 MG TAB PO SCH (08:34)
[2018-06-15] MEDS: CLOPIDOGREL BISULFATE 75 MG TAB PO SCH (08:34)
[2018-06-15] MEDS: ATENOLOL 50 MG TABLET PO SCH (08:34)
[2018-06-15] MEDS: CHOLECALCIFEROL 1,000 UNITS TAB PO SCH (08:34)
--- NOTE | 2018-06-15 10:20 | Family Medicine Progress Note ---
Date of Service June 15, 2018 Assessment & Plan (1) Cerebrovascular accident: Mari is a 78-year-old female who presented to the ED with right-sided upper and lower extremity weakness and dysarthria and admitted for CVA. She was admitted to the ICU for telemetry, serial troponins, and monitoring and has been downgraded to PCU. Cerebrovascular accident likely embolic without clear origin MRI shows findings consistent with multiple acute infarcts. - Now asymptomatic, minimal residual deficits. CThead negative, CTA head and neck negative Repeat CT head negative, no signs of hemorrhagic conversion Status post TPA protocol looking now transitioned to aspirin Lipid panel: Cholesterol 96, LDL 41, HDL 43 cholesterol/HDL ratio 2. Excellent control, do not recommend converting simvastatin at this time. TTE: EF 65-70%, prosthetic AV well seated, mi MR, mi TR, no wall motion abnormality, no shunt appreciated w/ 10cc agitated saline. LA/RA mi dilitation - Neuro Consulted. Avoid dehydration and hypotension, and follow-up in neurology clinic in 1 month. Appreciate recommendations. -Given the multiple small infarcts and good response to TPA with minimal residual deficits suspicious for embolic event. Given that CTA head and neck did not show carotid disease she may benefit for evaluation of further cardioembolic origin. Attempting to locate ARNOLDO record from valve replacement ~7 years ago to see if PFO can be excluded. - PT/OT consulted - Downgrade to PCU status today LBBB - no Glenys>1mm - New compared to prior - Echo as above - Continue to follow - troponin negative HTN - [employer] Atenolol 50mg daily - Irbesartan 50mg PO daily HLD - Simvastatin 40mg qHS [employer]. Lipids under excellent control, no change in statin at this time. DVT Prophylaxsis - Held in setting of TPA - ASA - SCDs (2) Hypertension: (3) Hyperlipidemia LDL goal <70: (4) Admitted to intensive care unit: (5) Received intravenous tissue plasminogen activator (tPA) in emergency department: (6) DVT prophylaxis: Supervising Physician Co-Signing Physician Notes I personally examined the patient and verified all villanueva points of history and exam, discussed case, and agree with decision making with Dr Cheatham feeling better. just a little residual numbness hand. Similar to yesterday. No other new problems. In discussing the possibility of cardioembolic source, as well as whether or not she had a transesophageal echo done in the past, she is fairly confident that she did not. Still waiting on records from [place]. Dr. Cheatham tried to review in the electronic chart, but unfortunately this was right around the time that her she was switching from paper to electronic and no meaningful records surrounding her heart surgery are available. vitals noted nad breathing unlabored no pallor or icterus. moves arms well, no facial droop, speech clear StrokeMRI certainly makes it appear like it was something more central embolic, certainly the concern would be that she could have a PFO or less likely left atrial thrombus. (Left atrial thrombus less likely given that she has not shown any atrial fibrillation). In discussion with cardiology they wondered should she have had a transesophageal echo at the time of her heart surgery then if she lacked a PFO then obviously she would not have one now, and then the question of left atrial thrombus would really be solved just as well noninvasively by monitoring for atrial fibrillation. Certainly is quite reasonable, and we are awaiting records from [place]. That said the patient herself does not remember having had a transesophageal echo, and she seems to be a fairly reliable historian. In that respect we will make her n.p.o. after midnight, just so that if her records, that she did not have a transesophageal echo (as she believes she did not) we could possibly try to get it done for tomorrow. Subjective Olimpia reports she feels mostly unchanged today. She continues to notice mild qualitative sensory decrease in her right fourth and fifth fingers and lateral right calf compared to the left, but notes it is not completely numb. She does not have any strength deficits and does not feel weak. She denies any headache, syncope, presyncope, lightheadedness, dizziness overnight. Denies chest pain, chest pressure, shortness of breath, dyspnea. She endorses that she is very tired this morning, reports that the CT and blood work overnight prevented her from sleeping well but otherwise feels okay and mostly unchanged from last night. She reports the bruising on her right lateral arm, and right lateral lower leg continues to be tender in that the area of bruising has significantly increased. Her pain in these extremities do not limit her movement or strength. Expresses no other questions or concerns at time of visit this morning. Review of Systems Review of Systems: 12 point review of systems negative except as noted in HPI. Musculoskeletal: + body aches; no muscle weakness Integumentary: + wounds; no rash and no lesions Physical Exam Physical Exam: General: A&Ox3. NAD. Cooperative. HEENT: Atraumatic, normocephalic. Pulm: CTAB A&P. -wheezes, -rales, -rhonchi. Symmetrical chest rise. No increase work of breathing. No respiratory distress. Cardiac: RRR, -mrg. Radial pulses intact and symmetrical. Abdominal: Nontender, nondistended, soft. BS present. Neuro: 5 out of 5 strength with normal range of motion (active and passive) to ankle dorsiflexion/plantar flexion, knee flexion/extension, hip flexion, shoulder flexion/abduction/internal rotation/external rotation, elbow flexion/extension, wrist flexion/extension, finger flexion/extension, and intraosseal. Pupils equal and equally reactive to light and accommodation bilaterally. Extraocular movements intact without nystagmus. Visual sullivan without cut, visual acuity grossly intact. Facial strength and sensation intact in all distributions without asymmetry. Tongue protrudes midline. Shoulder shrug 5/5. Sensory: Sensation to soft touch in the fourth and fifth right finger, lateral right palm, lateral right forearm, and lateral right upper arm intact but diminished compared to left. Sensation to soft touch in the lateral right foot, lateral right calf intact but diminished compared to left. Sensation in upper thigh intact and symmetrical. Results & Data Vital Signs (Past 12 Hours) Vital Signs Temp Pulse Pulse Resp BP BP Pulse Ox 06/15/18 05:01 70 15 124/52 L 94 06/15/18 04:00 75 17 117/48 L 96 06/15/18 03:00 75 16 148/55 H 95 06/15/18 02:03 36.5 C 71 17 147/51 H 95 06/15/18 01:03 36.6 C 67 16 128/48 L 95 06/15/18 00:03 36.5 C 75 21 113/44 L 93 06/15/18 00:00 66 06/14/18 23:03 36.5 C 72 16 139/72 94 06/14/18 22:03 36.5 C 67 20 113/58 L 93 06/14/18 21:03 36.5 C 73 15 141/75 H 96 Resident Activity Tracking Resident Involvement: Resident Care Provided Care Provided: Adult Hospital Medicine (1) Cerebrovascular accident CVA mechanism: unspecified Qualified Code(s): I63.9 - Cerebral infarction, unspecified
[2018-06-15] MEDS: SIMVASTATIN 40 MG TAB PO SCH (20:57)
[2018-06-15] MEDS: ZOLPIDEM TARTRATE 10 MG TAB PO PRN (23:59)
[2018-06-16 06:48] LABS: Estimated Average Glucose 114 mg/dl; Hemoglobin A1C 5.6 % (4.5-5.6)
[2018-06-16 08:04] LABS: Basophils # (auto) 0.03 K/uL (0-0.2); Basophils % (auto) 0.4 %; Eosinophils # (auto) 0.45 K/uL (0-0.5); Eosinophils % (auto) 6.5 %; Hematocrit (blood only) 29.2 % (37-47); Hemoglobin 9.6 g/dL (12.0-16.0); Immature Granulocytes # (auto) 0.02 K/uL (0.00-0.02); Immature Granulocytes % (auto) 0.3 %; Lymphocytes # (auto) 1.01 K/uL (1.2-3.4); Lymphocytes % (auto) 14.5 %; Mean Corpuscular Volume 88.2 fL (80-100); Mean Platelet Volume 10.1 fL (7.4-10.4); Monocytes # (auto) 0.58 K/uL (0.11-0.59); Monocytes % (auto) 8.3 %; Neutrophils # (auto) 4.88 K/uL (1.4-6.5); Platelet Count 121 K/uL (130-400); RDW Coefficient of Variation 14.2 % (11.5-14.5); RDW Standard Deviation 45.4 fL (36.4-46.3); Red Blood Count 3.31 M/uL (4.2-5.4); White Blood Count 6.97 K/uL (4.8-10.8)
[2018-06-16 08:20] LABS: BUN Creatinine Ratio 15.2 (10-20); Calcium 8.7 mg/dl (8.5-10.1); Creatinine Clr Calc Pharmacy 52.1 ml/min; Est GFR (African American) 79.4; Est GFR (Non-African American) 68.5; Potassium 3.9 mmol/L (3.5-5.1)
[2018-06-16 08:23] LABS: Mean Corpuscular Hgb Conc 32.9 g/dL (32-36)
[2018-06-16] MEDS: CLOPIDOGREL BISULFATE 75 MG TAB PO SCH (10:51)
[2018-06-16] MEDS: ASPIRIN 81 MG ECTAB PO SCH (10:51)
[2018-06-16] MEDS: IRBESARTAN 150 MG TAB PO SCH (10:51)
[2018-06-16] MEDS: CHOLECALCIFEROL 1,000 UNITS TAB PO SCH (10:51)
[2018-06-16] MEDS: ATENOLOL 50 MG TABLET PO SCH (10:51)
--- NOTE | 2018-06-16 15:23 | Family Medicine Progress Note ---
Date of Service June 16, 2018 Assessment & Plan (1) Cerebrovascular accident: Mari is a 78-year-old female who presented to the ED with right-sided upper and lower extremity weakness and dysarthria and admitted for CVA. She was admitted to the ICU for telemetry, serial troponins, and monitoring and has been downgraded to PCU. Cerebrovascular accident likely embolic without clear origin MRI findings consistent with multiple acute infarcts. - minimal residual RUE weakness LUE weakness, LUE numbness CThead negative, CTA head and neck negative Repeat CT head negative, no signs of hemorrhagic conversion Status post TPA protocol looking now transitioned to aspirin Lipid panel: Cholesterol 96, LDL 41, HDL 43 cholesterol/HDL ratio 2. Excellent control, do not recommend converting simvastatin at this time. TTE: EF 65-70%, prosthetic AV well seated, mi MR, mi TR, no wall motion abnormality, no shunt appreciated w/ 10cc agitated saline. LA/RA dilitation - Neuro Consulted. Avoid dehydration and hypotension, and follow-up in neurology clinic in 1 month. - attempted to get previous medical record from [place], but no ARNOLDO was seen. In order to rule out PFO May need to order ARNOLDO in house, will consult cardiology formally LBBB - no ST elevation>1mm - New compared to prior - Echo as above - Continue to follow - troponin negative HTN - [employer] Atenolol 50mg daily - Irbesartan 50mg PO daily HLD - Continue Simvastatin 40mg qHS [employer]. DVT Prophylaxis - Held in setting of TPA - ASA - SCDs (2) Hypertension: (3) Hyperlipidemia LDL goal <70: (4) Admitted to intensive care unit: (5) Received intravenous tissue plasminogen activator (tPA) in emergency department: (6) DVT prophylaxis: Supervising Physician Co-Signing Physician Notes Patient seen and examined with Dr. Mendoza. Agree with history, assessment and plan of care as outlined by Dr. Mendoza. Mari is a 78-year-old female who presented to the ED with right-sided upper and lower extremity weakness and dysarthria and admitted for CVA. Some residual numbness of the right upper and lower extremities. Significant ecchymosis of the right upper arm and lower leg. 1. CVA. s/p tPA. MRI with multiple acute infarcts, residual neuro deficits. Repeat Head CT s/p tPA shows not conversion to hemorrhagic conversion. Follow up with neuro in 1 month. Trying to get ARNOLDO records from valve replacement 7 years ago to exclude PFO but no evidence of prior ARNOLDO done. Will consult cardiology formally for possible ARNOLDO. 2. LBBB. New this admission. No chest pain. 3. HTN. Atenolol 50mg qd, irbesartan 50mg qd. 4. HLD. Simvastatin 40mg, no change in statin at this point. Subjective No acute events overnight. Patient reports significant improvement in mike RUE, LUE weakness. Some LUE numbness remains, She denied slurred speech, facial droop, headache, vision changes. She denies chest pain, palpitation, presyncope, syncope. Review of Systems Constitutional: + weakness; no fever, no chills and no fatigue Eyes: no diplopia and no worsening vision Respiratory: no cough, no dyspnea and no wheezing Cardiovascular: no chest pain, no palpitations, no edema and no calf pain Gastrointestinal: no abdominal pain, no nausea, no vomiting and no change in stools Neurologic: + localized weakness (RUE/RLE ( improved)) and + numbness (RLE); no tingling Physical Exam Constitutional: WD/WN, vitals as above no acute distress Eyes: PERRL and EOM intact bilaterally ENMT: external ear and nose normal, oropharynx normal Throat: uvula midline Neck: trachea midline, no thyromegaly Respiratory: normal respiratory effort, lungs clear to auscultation Cardiovascular: Rate/Rhythm: not tachycardic Heart Sounds: + murmur (systolic) Gastrointestinal (Abdomen): normal bowel sounds, soft, nontender, no hepatosplenomegaly Musculoskeletal: no cyanosis or clubbing, extremities motor strength 5/5 RUE 5/5, LUE 5/5, RLE 4/5 strength, LLE 5/5 strength, sensation is symmetric Skin: no rashes, warm and dry Neurologic: PERRL, EOMI, accommodation nl, no face palsy, no dysarthria CN's II-XI intact bilaterally and awake Speech / Cognition: no expressive aphasia and no receptive aphasia Motor/Sensory: no tremor and no sensory deficit Cranial Nerves: PERRL, normal facial strength, tongue midline, normal hearing, able to elevate shoulders bilaterally and symmetric palate elevation Psychiatric: A+Ox3, euthymic affect Results & Data Vital Signs (Past 12 Hours) Vital Signs Temp Pulse Pulse Resp BP Pulse Ox 06/16/18 15:01 36.6 C 67 16 141/75 H 94 06/16/18 11:01 37.1 C 66 16 127/63 94 06/16/18 07:01 36.8 C 68 14 110/52 L 95 06/16/18 03:53 36.7 C 67 17 105/64 97 Resident Activity Tracking Resident Involvement: Resident Care Provided Care Provided: Adult Hospital Medicine (1) Cerebrovascular accident CVA mechanism: unspecified Qualified Code(s): I63.9 - Cerebral infarction, unspecified
[2018-06-16] MEDS: SIMVASTATIN 40 MG TAB PO SCH (20:46)
[2018-06-16] MEDS: ZOLPIDEM TARTRATE 10 MG TAB PO PRN (23:38)
[2018-06-17 06:23] LABS: Basophils # (auto) 0.02 K/uL (0-0.2); Basophils % (auto) 0.3 %; Eosinophils # (auto) 0.42 K/uL (0-0.5); Eosinophils % (auto) 5.7 %; Hematocrit (blood only) 29.2 % (37-47); Hemoglobin 9.7 g/dL (12.0-16.0); Immature Granulocytes # (auto) 0.03 K/uL (0.00-0.02); Immature Granulocytes % (auto) 0.4 %; Lymphocytes # (auto) 0.86 K/uL (1.2-3.4); Lymphocytes % (auto) 11.8 %; Mean Corpuscular Hgb Conc 33.2 g/dL (32-36); Mean Platelet Volume 10.3 fL (7.4-10.4); Monocytes # (auto) 0.74 K/uL (0.11-0.59); Monocytes % (auto) 10.1 %; Neutrophils # (auto) 5.24 K/uL (1.4-6.5); Neutrophils % (auto) 71.7 %; Platelet Count 145 K/uL (130-400); RDW Coefficient of Variation 14.2 % (11.5-14.5); RDW Standard Deviation 45.4 fL (36.4-46.3); Red Blood Count 3.32 M/uL (4.2-5.4); White Blood Count 7.31 K/uL (4.8-10.8)
[2018-06-17 06:34] LABS: INR 1.1 (0.9-1.1); Prothrombin Time 11.5 Seconds (9.0-12.0)
[2018-06-17 06:51] LABS: BUN Creatinine Ratio 20.4 (10-20); Calcium 8.3 mg/dl (8.5-10.1); Creatinine Clr Calc Pharmacy 48.5 ml/min; Est GFR (Non-African American) 64.7; Potassium 3.7 mmol/L (3.5-5.1)
--- NOTE | 2018-06-17 08:36 | Pre Anesthesia Assessment ---
Date of Service June 17, 2018 Pre Sedation Assessment Vital Signs Temp Pulse Pulse Pulse Resp BP Pulse Ox 06/17/18 07:36 37.1 C 66 16 119/67 94 06/17/18 03:32 37.0 C 91 H 18 100/59 L 97 06/16/18 23:34 36.7 C 66 17 108/64 97 06/16/18 23:05 60 06/16/18 19:28 37.0 C 63 16 113/47 L 96 06/16/18 16:00 64 06/16/18 15:01 36.6 C 67 16 141/75 H 94 06/16/18 11:01 37.1 C 66 16 127/63 94 Cardiovascular + regular rate Respiratory + respiratory effort normal Pre-Sedation Airway Assessment Smoking Status: Never smoker Hx Sleep Apnea: No Hx Difficult Intubation: No Short, Thick Neck: No Thyromental Distance: > or= 3.5 Finger Breadths Oral Cavity: + WNL Mallampati Class: III ASA: ASA3 Procedure Planning Contraindications for Sedation: none Current Medications Reviewed: Yes Notes The planned sedation has been discussed with the patient. Informed Consent was obtained. I have identified the patient, determined the appropriateness of sedation and have assessed the patient immediately prior to the procedure. All medicine(s) and interventions are by my order.
[2018-06-17] MEDS ORDERED: BENZOCAIN/TETRACA/BUTAM SPRAY 200 APPLN/20 GM SPRY EXT ONE (09:50)
[2018-06-17] MEDS ORDERED: fentaNYL citrate 100 MCG/2 ML VIAL ONE (09:51)
[2018-06-17] MEDS ORDERED: CANNULA ONE (09:51)
[2018-06-17] MEDS ORDERED: MIDAZOLAM HCL 1 MG/ML 2ML VIAL ONE (09:51)
--- NOTE | 2018-06-17 11:10 | Post Operative Brief Note ---
Cardiology Brief Post Op Date of Surgery June 17, 2018 Pre & Post Diagnosis Operation Date: 06/17/18 10:15 <No data on this case meets the specified criteria> Procedure ARNOLDO No PFO, NO vegetation on Aortic valve. Severe mitral annular calcification. No thrombus in the HOLDEN. Full report to follow No complications Sedation: Versed 3mg, fentanyl 50 mcg Box Person Russ Rodriguez MD Plastic Roller none Estimated Blood Loss 0 Findings Consistent with Post-Op Diagnosis
--- NOTE | 2018-06-17 11:20 | Cardiology Consultation ---
Date of Consultation June 17, 2018 Assessment & Plan (1) Cerebrovascular accident: She appears to have had an embolic cerebral vascular accident. Source of embolism is unclear. Her transesophageal echocardiogram performed this morning did not reveal any evidence of valvular vegetation, left atrial appendage thrombus or PFO. She has preserved LV systolic function which puts her at lower risk for thrombotic events. I would think that the most likely source of embolus is still cardiac, and possibly related to paroxysmal atrial fibrillation. She has had documented atrial arrhythmias here but no actual atrial fibrillation. We did discuss the option for long-term monitoring employing an implantable loop recorder. However, she had some reservations and wishes to simply undergo 30 day event monitoring upon discharge. There does not appear to be a clear indication for systemic anticoagulation at this point. Present on Admission?: Yes (2) Valvular heart disease: She appears to have a normally functioning bioprosthetic aortic valve. There was no evidence of vegetation on transesophageal echocardiogram. The examination is limited by image quality due to shadowing from the prosthetic itself and mitral annular calcification. (3) Ectopic atrial rhythm: Her telemetry reveals alternating atrial pacemakers. She has a slower rhythm and a faster rhythm. The faster rhythm appears to be ectopic atrial, and not atrial fibrillation. There has been no documentation of actual atrial fibrillation. It is likely however that her atrial arrhythmias put her at higher risk for atrial fibrillation and I would agree with some form of outpatient monitoring. 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 On the day of admission the patient was noted to have the acute development of right upper and lower extremity weakness. This later involved some speech disturbance as well. Patient lives at home and was able to notify EMS to facilitate transfer to [facility]. Based on her initial evaluation she was administered thrombolytics and has had nearly complete resolution of her presenting symptoms. Patient has been on telemetry since admission. A transthoracic echocardiogram did not reveal any obvious source of embolism. Based on the nature of her imaging studies there was some concern that her stroke was cardioembolic in origin. She is therefore referred for transesophageal echocardiography. In general the patient is an active individual. She does not report significant activity limitations such as exertional chest discomfort or dyspnea. She generally does not have dizziness or lightheadedness. She has been unaware of palpitations. She was ambulatory around her room this morning with only mild numbness in the lateral portion of her right foot. Allergies Allergy/AdvReac Type Severity Reaction Status Date / Time latex Allergy Unknown RASH Verified 06/14/18 01:36 Penicillins Allergy Unknown RASH Verified 06/14/18 01:36 Sulfa (Sulfonamide Allergy Unknown "MAKE MY Verified 06/14/18 01:36 Antibiotics) HEART RATE GO UP" acetaminophen AdvReac Intermediate extreme Unverified 06/14/18 01:36 nervous feeling and anxiety oxycodone AdvReac Intermediate extreme Unverified 06/14/18 01:36 nervous feeling and anxiety seafood Allergy Severe nausea and Uncoded 06/14/18 01:36 vomiting profuse Home Medications Home Medications Medication Instructions Recorded Confirmed Type aspirin 81 mg PO DAILY 06/14/18 06/14/18 History atenolol 50 mg PO QAM 06/14/18 06/14/18 History cholecalciferol (vitamin D3) 1,000 unit PO DAILY 06/14/18 06/14/18 History [Vitamin D3] irbesartan 150 mg PO DAILY 06/14/18 06/14/18 History simvastatin 40 mg PO HS 06/14/18 06/14/18 History zolpidem 10 mg PO HS PRN 06/14/18 06/14/18 History Patient History Medical History 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 and bilateral salpingo-oophorectomy Stage TII N0M0 stage IIB Status post external beam radiation as well as HDR boost completed 02/06/2005" Social History Preferred Language: Welsh Communication Ability: Effective Labeling Specialist Required: No Beliefs That Will Affect Care: None marital status: Current Living Situation: Alone current occupational status: retired Other Information That Helps Us Care for You: No Feels Safe at Home: Yes Safety Concerns: Feels Safe At This Time Smoking Status: Never smoker Do You Dip or Chew Tobacco: No Second Hand Exposure: No Tobacco Cessation Education Requested by Patient: No Hx Alcohol Use: No Hx Substance Use: No Review of Systems Review of Systems: All systems reviewed & are unremarkable except as noted in HPI & below No difficulty with swallowing except rarely with hamburgers. No recent vomiting. No abdominal pain. Physical Exam Physical Exam: She is alert and oriented x3. Mood affect appear normal. She answered all questions appropriately. HEENT: Sclerae are anicteric. Pupils are equal and reactive to light and accommodation. Extraocular movements were intact. Neuro: Cranial nerves intact. Some residual weakness in the right hand versus the left. Neck: Examination of the submandibular region did not reveal any significant lymphadenopathy. Carotids are palpable bilaterally and free of bruits on auscultation. There was no evidence of jugular venous distention. The thyroid was not enlarged. Lungs: Lungs are clear to auscultation bilaterally. There are no rales wheezes or rhonchi. She has normal respiratory effort without use of accessory muscles. There is normal pulmonary excursion. Cardiac: The rhythm was regular. S1 and S2 were normal. Crescendo systolic murmur. The PMI was not markedly displaced on palpation. Abdomen: The abdomen was soft and nontender. Extremities: Patient has bilateral radial pulses that are equal in intensity. There is no evidence cyanosis or clubbing. There was no evidence of significant peripheral edema bilaterally. Skin: There are no rashes noted on examination today. Results & Data Vital Signs (Past 12 Hours) Vital Signs Temp Pulse Pulse Pulse Resp BP BP 06/17/18 11:02 98 H 16 192/84 H 06/17/18 10:57 98 H 16 192/86 H 06/17/18 10:52 67 16 98/66 L 06/17/18 10:47 67 16 106/77 06/17/18 10:42 67 16 133/77 06/17/18 10:23 36.9 C 59 L 16 133/77 06/17/18 07:36 37.1 C 66 16 119/67 06/17/18 03:32 37.0 C 91 H 18 100/59 L 06/16/18 23:34 36.7 C 66 17 108/64 Pulse Ox 06/17/18 11:02 99 06/17/18 10:57 99 06/17/18 10:52 99 06/17/18 10:47 99 06/17/18 10:42 99 06/17/18 10:23 96 06/17/18 07:36 94 06/17/18 03:32 97 06/16/18 23:34 97 Laboratory Results Abnormal Lab Results 06/17/18 06/17/18 06/17/18 05:49 05:49 05:49 WBC 7.31 RBC 3.32 L Hgb 9.7 L Hct 29.2 L MCV 88.0 MCH 29.2 MCHC 33.2 RDW Std Deviation 45.4 RDW Coeff of Ovidio 14.2 Plt Count 145 MPV 10.3 Immature Gran % (Auto) 0.4 Neut % (Auto) 71.7 Lymph % (Auto) 11.8 [place] % (Auto) 10.1 Eos % (Auto) 5.7 Baso % (Auto) 0.3 Immature Gran # (Auto) 0.03 H Neut # (Auto) 5.24 Lymph # (Auto) 0.86 L [place] # (Auto) 0.74 H Eos # (Auto) 0.42 Baso # (Auto) 0.02 PT 11.5 INR 1.1 Sodium 142 Potassium 3.7 Chloride 111 H Carbon Dioxide 24 Anion Gap 7.0 BUN 18 Creatinine 0.87 Est Cr Clr Drug Dosing 48.5 Est GFR ( Amer) 75.0 Est GFR (Non-Af Amer) 64.7 BUN/Creatinine Ratio 20.4 H Glucose 89 Calcium 8.3 L Diagnostic Findings Brain imaging revealed evidence of middle cerebral artery territory infarction. Carotid duplex not reveal any flow limiting stenoses Baseline transthoracic echocardiogram revealed normal aortic valve function. No PFO. Normal LV systolic function. ECG Additional Comments: Telemetry demonstrates normal sinus rhythm alternating with an ectopic atrial rhythm (1) Cerebrovascular accident CVA mechanism: unspecified Qualified Code(s): I63.9 - Cerebral infarction, unspecified
[2018-06-17] MEDS: CHOLECALCIFEROL 1,000 UNITS TAB PO SCH (12:49)
[2018-06-17] MEDS: ATENOLOL 50 MG TABLET PO SCH (12:49)
[2018-06-17] MEDS: CLOPIDOGREL BISULFATE 75 MG TAB PO SCH (12:49)
[2018-06-17] MEDS: ASPIRIN 81 MG ECTAB PO SCH (12:50)
[2018-06-17] MEDS: IRBESARTAN 150 MG TAB PO SCH (12:50)
[2018-06-17] MEDS ORDERED: STROKE PATIENT DISCHARGE STA (15:32)
[2018-06-17 15:39] VITALS: BP 99/61; PULSE 90; TEMP 97.7; O2SAT 95
--- NOTE | 2018-06-17 15:59 | Pharmacy Report ---
Pharmacist Stroke Counseling - Date of Service June 17, 2018 - Scope: Pharmacy has been consulted to provide medication discharge counseling for this patient admitted with ischemic stroke as per the Pharmacist Discharge Counseling for Stroke Patients Protocol. - Medications on Discharge: Home Medications Medication Instructions Recorded Confirmed aspirin 81 mg PO DAILY 06/14/18 06/14/18 atenolol 50 mg PO QAM 06/14/18 06/14/18 cholecalciferol (vitamin D3) 1,000 unit PO DAILY 06/14/18 06/14/18 [Vitamin D3] irbesartan 150 mg PO DAILY 06/14/18 06/14/18 simvastatin 40 mg PO HS 06/14/18 06/14/18 zolpidem 10 mg PO HS PRN 06/14/18 06/14/18 New Rx's Medication Instructions Recorded clopidogrel 75 mg PO QAM 30 Days #30 tab 06/17/18 - Action: The above medications, specifically ones for stroke treatment/prophylaxis, have been reviewed in detail with the patient and/or patient customer account representative(s) prior to discharge. This includes indication, common adverse reactions, drug interactions, and medication administration. Medication counseling has been employed using the teach-back method to ensure understanding. - Outcome: The patient and/or patient customer account representative(s) have demonstrated understanding of the medications. Please note, they are aware that the pharmacist will call them within 72 hours post-discharge to confirm that the appropriate medications are being taken and answer any further medication related questions the patient might have at that time. Contact information Individual to be contacted: Olimpia If you can not contact the pt please contact Dominique (family friend): Best time to call: anytime Additional comments: Spoke with pt re: the bleeding risks associated with DAPT. We discussed stopping these medications 5 days prior to any elective dental work/surgical procedure. Informed her of D/D interactions and the indication for adding plavix to ASA. I confirmed that she does not take any OTC/herbal supps. Thank you for allowing pharmacy to be involved in the care of this patient. Please call [phone] or [phone] with any additional questions
--- NOTE | 2018-06-17 19:39 | Discharge Summary ---
Date of Service June 17, 2018 Admission HPI Per Admitting Provider The patient is a 78-year-old female with past medical history including endometrial carcinoma, hypertension, and hyperlipidemia who presented to the emergency department as a stroke alert with right upper chimney weakness and difficulty with speech. She underwent a assessment by tele-stroke from [facility], was found to be having an acute CVA, and underwent TPA after having a CT of the head which was negative. Admission Exam Per Admitting Provider The patient is presently receiving TPA. She is awake, alert and oriented 3, w ell developed and well nourished, normocephalic and atraumatic, lying in bed and in no acute distress. HEENT--PERRL, EOMI, mucous membranes and oropharynx moist. Neck--supple. No JVD. No bruits. Thyroid normal, trachea midline, no adenopathy. Heart--normal S1 and S2. No murmurs, rubs or gallops. Lungs--clear bilaterally, no respiratory distress, no accessory muscle use. Abdomen--normal bowel sounds and soft. Nontender. Nondistended, no hernias or masses, no organomegaly. Extremities--no cyanosis or clubbing. No edema. There are good distal pulses b/l. Dermatologic--normal skin turgor, normal color, no abnormal lymph nodes, no rash. Neurologic--cranial nerves II through XII grossly intact. Rheumatologic--normal range of motion. Psychiatric--normal affect. Principal Diagnosis Acute CVA Discharge Exam Constitutional WD/WN, vitals as above no acute distress Eyes PERRL and EOM intact bilaterally Respiratory normal respiratory effort, lungs clear to auscultation Cardiovascular Rate/Rhythm: regular rate and regular rhythm; not tachycardic Heart Sounds: + murmur (systolic) Musculoskeletal no cyanosis or clubbing, extremities motor strength 5/5 Skin no rashes, warm and dry Neurologic PERRL, EOMI, accommodation nl, no face palsy, no dysarthria CN's II-XI intact bilaterally and awake Speech / Cognition: no expressive aphasia and no receptive aphasia Motor/Sensory: no tremor and no sensory deficit Cranial Nerves: PERRL, normal facial strength, tongue midline, normal hearing, able to elevate shoulders bilaterally and symmetric palate elevation Psychiatric A+Ox3, euthymic affect Discharge Data Allergies Allergy/AdvReac Type Severity Reaction Status Date / Time latex Allergy Unknown RASH Verified 06/14/18 01:36 Penicillins Allergy Unknown RASH Verified 06/14/18 01:36 Sulfa (Sulfonamide Allergy Unknown "MAKE MY Verified 06/14/18 01:36 Antibiotics) HEART RATE GO UP" acetaminophen AdvReac Intermediate extreme Unverified 06/14/18 01:36 nervous feeling and anxiety oxycodone AdvReac Intermediate extreme Unverified 06/14/18 01:36 nervous feeling and anxiety seafood Allergy Severe nausea and Uncoded 06/14/18 01:36 vomiting profuse Consultations 06/14/18 02:18 ED Decision to Admit Stat 06/14/18 04:49 Consult Case Management - Discharge Planning Routine Consult Case Management - Discharge Planning Routine Consult Filament Shaper Routine Consult Neurology Routine 06/14/18 18:41 Consult Health Information Management Stat 06/15/18 16:41 Consult Health Information Management Stat 06/16/18 15:16 Consult Cardiology Routine Procedures Performed Operation Date: 06/17/18 10:15 Actual Procedures p Transesophageal Echo - Stan Rodriguez MD Ordered Studies 06/14/18 01:14 CT head/brain wo con Stat 06/14/18 02:05 CT angio head w con Urgent CT angio neck with con Urgent 06/14/18 04:49 MR brain wo con Routine 06/15/18 01:33 CT head/brain wo con Routine Hospital Course (1) Cerebrovascular accident: Mari is a 78-year-old female who presented to the ED with right-sided upper and lower extremity weakness and dysarthria and admitted for CVA. She was admitted to the ICU for telemetry, serial troponins, and monitoring and has been downgraded to PCU. Cerebrovascular accident likely embolic without clear origin RUE weakness LUE weakness, LUE numbness by history/exam. CThead negative, CTA head and neck negative Repeat CT head negative, no signs of hemorrhagic conversion - MRI Brain findings suggestive of embolic cva Received TPA protocol following evaluation by [facility] Neuro Telemedicine - weakness significantly improved s/p TPA Lipid panel: Cholesterol 96, LDL 41, HDL 43 cholesterol/HDL ratio 2. Excellent control, do not recommend converting simvastatin at this time. TTE: EF 65-70%, prosthetic AV well seated, mi MR, mi TR, no wall motion abnormality, no shunt appreciated w/ 10cc agitated saline. LA/RA dilitation - Neuro Consulted, follow-up in neurology clinic in 1 month. 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 DVT Prophylaxis - Held in setting of TPA - ASA - SCDs (2) Hypertension: (3) Hyperlipidemia LDL goal <70: (4) Admitted to intensive care unit: (5) Received intravenous tissue plasminogen activator (tPA) in emergency department: (6) DVT prophylaxis: Total Time Total Time Spent Total Time Spent (In Minutes): 30 Discharge Plan Discharge Items Patient Disposition: Home - Self-Care Reason For Visit: CVA POST TPA Discharge Diagnosis: Cerebrovascular accident Condition: Good Discharge Goals: Diagnostic testing, Improve function, Increase independence, Prevent disease and Screening Activity: Resume your previous activity Bathing: No limitations Exercise/Sports: Gradually increase as tolerated Non-emergency contact: Primary Care Provider and Neurologist Call non-emergency contact if: you have any medication questions and your symptoms worsen Follow-up/Referrals: Stan Dobson MD [Primary Care Provider] - 07/01/18 2:00 pm (Please, follow up at Dr. Dobson's office with his associate, Dr. Ch, on SaturdayJuly 01 at 2:00 pm. *If you need to change this appointment, call the office at [phone]. A HEEL SLUGGER WILL BE MAILED TO YOUR HOME. THE PACKAGE WILL INCLUDE EASY TO FOLLOW INSTRUCTIONS. THE RESULTS WILL BE SENT TO DR. DOBSON AND DR. ZAMORA. ) Maureen Todd PA-C [Physician Green End Worker] - 07/10/18 10:40 am (Please, follow up at [facility] Neurology Office with Maureen Todd PA-C on July 10 at 11:00 am (arrive 10:40 am). *This office is located at [address] in [place]. If you need to change this appointment, call the office at [phone].) Diet: Regular Addtl Provider Instructions: You arrived in the hospital with Right arm/leg weakness and numbness. You were found to have a stroke which was confirmed with MRI. You received TPA treatment and your symptoms improved. The findings were consistent with an embolic source meaning the clot mobilized from an area likely outside the brain. Imaging of your heart, neck vessels were negative fro an embolic source. Prior to discharge, lab work is being sent to test your blood for clotting forming agents. The results of this will be made available to your primary care doctor. Cardiology has also requested you to receive a cardiac exercise specialist for 30 days. This will determine if there is an abnormal heart rhythm ongoing. You will be contacted about this. Data should me made available to your primary care doctor. Please continue Aspirin 81 mg daily. You will also be prescribed Plavix on discharge. Please take as prescribed. Please follow up with Neurology. You have an appointment with Maureen Mead PA-C on 07/10 at 11 AM and a primary care appointment with Dr. Ch at July 01 at 2 pm. It is very important that you attend these appointments. Call 911 right away if you have any of the following symptoms of stroke: Weakness, tingling, or loss of feeling on one side of your face or body Sudden double vision or trouble seeing in one or both eyes Sudden trouble talking or slurred speech Trouble understanding others Sudden, severe headache Dizziness, loss of balance, or a sense of falling Blackouts or seizures F.A.S.T. is an easy way to remember the signs of stroke. When you see these signs, you know that you need to call 911 fast. F.A.S.T. stands for: F is for face drooping - One side of the face is drooping or numb. When the person smiles, the smile is uneven. A is for arm weakness - One arm is weak or numb. When the person lifts both arms at the same time, one arm may drift downward. S is for speech difficulty - You may notice slurred speech or difficulty speaking. The person can't repeat a simple sentence correctly when asked. T is for time to call 911 - If someone shows any of these symptoms, even if they go away, call 911 immediately. Make note of the time the symptoms first appeared. Prescriptions: New clopidogrel 75 mg Tablet 75 mg PO QAM 30 Days Qty: 30 RF: 0 Continued aspirin 81 mg Tablet,Delayed Release (Dr/Ec) 81 mg PO DAILY RF: 0 simvastatin 40 mg tablet 40 mg PO HS RF: 0 irbesartan 150 mg tablet 150 mg PO DAILY RF: 0 zolpidem 10 mg tablet 10 mg PO HS PRN (Reason: Sleep) RF: 0 atenolol 50 mg tablet 50 mg PO QAM RF: 0 cholecalciferol (vitamin D3) [Vitamin D3] 1,000 unit Tablet 1,000 unit PO DAILY RF: 0 Stand-Alone Forms: B-[id number]/Other Patient Handouts: Stroke Sx, Stroke Self Care, Stroke Dc Discharge Orders: Discharge Order (Routine); Ordered 06/17/18 Ordered By: Bj Mendoza Admission Data Admit Date/Time: 06/14/18 02:58 Attending Provider: Diana Mckenzie Admit Provider: Juan F Cochran Primary Care Provider: Stan Dobson Other Providers: Juan F Cochran ; Rory Martínez ; Rory Lozano ; Stan Rodriguez Service: Telemetry Other Interventions: Discharge Summary Assessment (RN) Last Done: 06/17/18 16:21 DC Date/Time DO NOT enter until pt leaves facility: 06/17/18 16:21 Resident Activity Tracking Resident Involvement: Resident Care Provided Care Provided: Adult Hospital Medicine
--- NOTE | 2018-06-20 14:20 | Pharmacy Report ---
Pharmacist Post D/C Phone Note - Phone Note: Date of phone call: June 20, 2018. Individual with whom pharmacist spoke to: FINA FLYNN The following questions were reviewed during the phone call with responses listed below each: Can you tell me the medications that you are currently taking as well as when and how you take each medication? -See Table Below When have you missed any doses of your medications? - no What side effects are you having from your medications, specifically, the new medications you were started on? - Pt reports GI upset which she initially attributed to her medications, but now thinks it was due to something she ate. What questions do you have about your medications? - none What problems are you having obtaining your medications? - none When is your next appointment with your primary care doctor? - Patient is to follow up with her PCP in early June. She also states she has a follow up appointment with her neurologist in the near future. As per the Pharmacist Discharge Counseling for Stroke Patients Protocol, this phone call has been completed within 72 hours of discharge. Thank you for allowing us to be involved in the care of this patient. - Home Medications: Home Medications Medication Instructions Recorded Confirmed aspirin 81 mg PO DAILY 06/14/18 06/14/18 atenolol 50 mg PO QAM 06/14/18 06/14/18 cholecalciferol (vitamin D3) 1,000 unit PO DAILY 06/14/18 06/14/18 [Vitamin D3] irbesartan 150 mg PO DAILY 06/14/18 06/14/18 simvastatin 40 mg PO HS 06/14/18 06/14/18 zolpidem 10 mg PO HS PRN 06/14/18 06/14/18 New Rx's Medication Instructions Recorded clopidogrel 75 mg PO QAM 30 Days #30 tab 06/17/18
[2018-06-26 10:50] LABS: Anti Cardiolipin Ab IgG <14 GPL (< = 14); Anti Cardiolipin Ab IgM 17 MPL (< = 12); Anti-Thrombin III Activity 92 % activity (80-120); B2 Glycoprotein IgA <9 SAU (<=20); B2 Glycoprotein IgG <9 SGU (<=20); B2 Glycoprotein IgM <9 SMU (<=20); Lupus Anticoagulant Negative (Negative); Protein S Functional(Activity) 66 % (60-140)
== END 2018-06-17 16:21 | disposition home or self-care (01) | DRG 62 ==
LOC: ED 01:15 → SUATTDRO 02:58 → 1E 02:58 → 2S 06-15 11:17
PROC: CLS.TEE (2018-06-17 10:15)
DX: E78.5 Hyperlipidemia, unspecified; S70.01XA Contusion of right hip, initial encounter; Z91.013 Allergy to seafood; R29.701 NIHSS score 1; S40.011A Contusion of right shoulder, initial encounter; R47.1 Dysarthria and anarthria; Z79.899 Other long term (current) drug therapy; Z87.891 Personal history of nicotine dependence; R29.703 NIHSS score 3; Z88.0 Allergy status to penicillin; G47.00 Insomnia, unspecified; Z79.82 Long term (current) use of aspirin; Z88.2 Allergy status to sulfonamides; I44.7 Left bundle-branch block, unspecified; Z88.5 Allergy status to narcotic agent; Z91.040 Latex allergy status; Z88.6 Allergy status to analgesic agent; Z95.3 Presence of xenogenic heart valve; W19.XXXA Unspecified fall, initial encounter; I49.1 Atrial premature depolarization; D64.9 Anemia, unspecified; G81.91 Hemiplegia, unspecified affecting right dominant side; I63.40 Cerebral infarction due to embolism of unspecified cerebral artery; I10 Essential (primary) hypertension; S80.11XA Contusion of right lower leg, initial encounter

== ENCOUNTER 2019-09-09 14:01 | Inpatient (IN) ==
[2019-09-09] MEDS ORDERED: SODIUM CHLORIDE 0.9% 1000ML 1,000 ML IV STA (14:15)
--- NOTE | 2019-09-09 14:46 | Emergency Department Note ---
Impression & Plan Acute GI bleeding ED Provider Note INFORMANT: [Patient] ED PROVIDER(S): Salomón Giron MD CHIEF COMPLAINT: Rectal bleeding PLAN: Disposition: Admitted Condition: [Good] O MEDICAL DECISION MAKING: Patient presented with acute rectal bleeding. Physical examination did not reveal an obvious source. She is anticoagulated on Plavix as well as Eliquis. Abdominal examination benign. Blood work and ECG ordered. ECG did not reveal any acute findings. CBC and chemistry panel unremarkable. INR slightly elevated at 1.2. The patient does have a slight elevation of BUN although not significantly different than prior. Consultation was made with Dr. Mia Vora of GI. He recommended admission for GI prep and possible colonoscopy tomorrow. Consultation was made with Dr. Couch of the hospitalist service. Patient was evaluated in the ER by the team and admitted. Triage Nursing notes reviewed and agree them. Vital Signs: reviewed and remarkable for [no significant abnormalities] Differential diagnosis: Diverticulosis, AVM, coagulopathy, colitis, inflammatory bowel disease, malignancy, Enriqueta-Pruett tear, esophagitis, peptic ulcer disease, variceal bleed, gastritis, epistaxis, fissure, hemorrhoids, as well as other pathologies. Diagnostics interpreted by me: ECG: Rate: 86 Rhythm: A. fib [place]: Normal QRS: Left bundle branch block ST segements: No ST elevation or depression Other: No PVCs Cardiac Monitoring:Cardiac monitoring ordered by me: The patient was placed on continuous cardiac monitoring and observed. It revealed A. fib at 84 beats per minute without ectopy or evidence of dysrhythmia. Consultation(s): [facility] gastroenterology [facility] service HPI: The patient is a 79 year old female who presents to the Emergency Room with complaints of rectal bleeding. This started 1230 today and was significant. Bloodied her clothes, then had a BM that was very loose. The patient also notes the following associated symptoms, anxiousness, . The patient has taken no meds relieving factors. Current pain is rated as 0/10. Currently anticoagulated secondary to Afib. Pt denies LOC, headache, fevers, chills, diaphoresis, visual changes, neck pain, chest pain, breathing difficulties, nausea, vomiting, abdominal pain, back pain, melena, urinary symptoms, numbness, weakness, lymphadenopathy, rash, or other complaints. ROS: See above HPI for pertinent positives & negatives. A total of [10] systems reviewed and were otherwise negative. PAST MEDICAL HISTORY:[See Below] aFIB, CVA PAST SURGICAL HISTORY:[See Below] FAMILY HISTORY:[See Below] SOCIAL HISTORY:[See Below] lives with family HOME MEDICATIONS:[See Below] ALLERGIES:[See Below] VITALS:[See Below] PHYSICAL EXAMINATION: GENERAL: Awake, alert, well-appearing, in no distress HENT: Normocephalic, atraumatic. Oropharynx unremarkable. EYES: Normal conjunctiva. Sclera non-icteric. NECK: Inspection normal. Non-tender. Supple. No nuchal rigidity. FROM. No masses. RESPIRATORY: Clear to auscultation. No wheezes. No rales. Normal respiratory effort. CARDIAC: Normal rate. Normal rhythm. No murmurs. No rubs. Extremities warm and well perfused. Pulses equal. No JVD. GI: Soft, non-distended. No tenderness to palpation. No rebound or guarding. No masses. RECTAL: Old appearing hemorrhoid. No fissures. No signs of infection. No tenderness. Bright red blood noted. Hemoccult positive. MUSCULOSKELETAL: Atraumatic. Chest examination reveals no tenderness. The back is symmetrical on inspection without obvious abnormality. There is no CVA tenderness to palpation. No joint edema. LOWER EXTREMITIES: Calves are equal size bilaterally and non-tender. No edema. No discoloration. NEURO: Normal sensorium. No sensory or motor deficits noted. SKIN: No rash or jaundice noted. ED COURSE: [Critical Care:] [None] Salomón Giron MD Past Med/Surg History Medical History (Updated 09/09/19 @ 19:37 by Tamar Couch DO) Carotid artery plaque Cerebrovascular accident (Resolved 05/2018) 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 and bilateral salpingo-oophorectomy Stage TII N0M0 stage IIB Status post external beam radiation as well as HDR boost completed 2004" Hypercholesterolemia Hyperlipidemia LDL goal <70 Hyperparathyroidism, secondary Hypertension Insomnia Left bundle-branch block Moderate mitral stenosis Moderate to severe mitral regurgitation Moderate tricuspid regurgitation Osteopenia (Acute) Received intravenous tissue plasminogen activator (tPA) in emergency department (Resolved) Renal insufficiency Scoliosis (Acute) Vitamin D insufficiency (Acute) Surgical History (Updated 06/10/19 @ 10:28 by Li Olivares MA) H/O aortic valve replacement H/O colonoscopy History of mastectomy History of total abdominal hysterectomy S/P aortic valve replacement with bioprosthetic valve (2009) Family History (Updated 06/10/19 @ 10:29 by Li Olivares MA) Father Cancer Colorectal cancer Mother Diabetes Hypertension Heart disease Brother Hypertension Social History (Updated 06/10/19 @ 10:29 by Li Olivares MA) Preferred Language: Bahamian Communication Ability: Effective Clinical Engineer Required: No Beliefs That Will Affect Care: None marital status: Current Living Situation: Family current occupational status: retired Feels Safe at Home: Yes Smoking Status: Former smoker Tobacco Type: cigarettes ; Age Started Using Tobacco: 22 ; Age Quit Using Tobacco: 62 ; packs per day: 0.5 ; Cigarettes Per Day: 10 ; Second Hand Exposure: No ; Hx Alcohol Use: No Hx Substance Use: No Allergies Allergies Allergy/AdvReac Type Severity Reaction Status Date / Time latex Allergy Unknown Rash Verified 09/09/19 16:08 acetaminophen AdvReac Intermediate extreme Verified 09/09/19 16:08 nervous feeling and anxiety oxycodone AdvReac Intermediate extreme Verified 09/09/19 16:08 nervous feeling and anxiety paroxetine [From Paxil] AdvReac Unknown edema and Verified 09/09/19 16:08 anxiety Sulfa (Sulfonamide AdvReac Unknown Tachycardia Verified 09/09/19 16:08 Antibiotics) seafood Allergy Severe nausea and Uncoded 09/09/19 16:08 vomiting profuse Home Meds Home Medications Medication Instructions Recorded Confirmed atenolol 50 mg PO QAM 09/09/19 09/09/19 calcium carbonate-vitamin D3 1 tab PO DAILY 09/09/19 09/09/19 [Calcium 600 + D(3)] irbesartan-hydrochlorothiazide 1 tab PO QAM 09/09/19 09/09/19 magnesium 0 mg PO QAM 09/09/19 09/09/19 zolpidem 5 - 10 mg PO HS PRN 09/09/19 09/09/19 Previous Rx's Medication Instructions Recorded simvastatin 40 mg tablet 40 mg PO HS #30 tab 05/04/19 apixaban 2.5 mg tablet 2.5 mg PO BID #180 tab 08/03/19 Results & Data (ED) Vital Signs Vital Signs - 24 hr 09/09/19 14:16 09/09/19 14:59 09/09/19 15:00 Temperature 36.6 C Temperature Source Oral Pulse Rate 84 102 H 100 H Pulse Rate from SpO2 Sensor 90 Respiratory Rate 16 20 21 Blood Pressure 126/66 129/63 Blood Pressure Mean 86 99 Pulse Oximetry 95 96 96 Oxygen Delivery Method Room Air Room Air Sepsis Recent Fever Within 48 Hours No Sepsis New/Unexplained Change in Mental Status N/A Sepsis Action Taken by Nursing No Action Required 09/09/19 15:02 09/09/19 15:31 09/09/19 16:00 Temperature Temperature Source Pulse Rate 91 H 88 93 H Pulse Rate from SpO2 Sensor 87 88 80 Respiratory Rate 18 17 21 Blood Pressure 126/54 L 128/60 Blood Pressure Mean 93 74 Pulse Oximetry 97 97 96 Oxygen Delivery Method Room Air Sepsis Recent Fever Within 48 Hours Sepsis New/Unexplained Change in Mental Status Sepsis Action Taken by Nursing 09/09/19 16:30 09/09/19 17:00 09/09/19 17:30 Temperature Temperature Source Pulse Rate 101 H 100 H 88 Pulse Rate from SpO2 Sensor 103 H 99 H 99 H Respiratory Rate 16 22 21 Blood Pressure 120/64 128/83 Blood Pressure Mean 78 104 Pulse Oximetry 95 96 98 Oxygen Delivery Method Sepsis Recent Fever Within 48 Hours Sepsis New/Unexplained Change in Mental Status Sepsis Action Taken by Nursing 09/09/19 18:01 Temperature Temperature Source Pulse Rate 110 H Pulse Rate from SpO2 Sensor 83 Respiratory Rate 17 Blood Pressure 127/63 Blood Pressure Mean 87 Pulse Oximetry 94 Oxygen Delivery Method Sepsis Recent Fever Within 48 Hours Sepsis New/Unexplained Change in Mental Status Sepsis Action Taken by Nursing Laboratory Data Result diagrams: 09/09/19 14:53 09/09/19 14:53 Lab Results 09/09/19 09/09/19 09/09/19 Range/Units 14:53 14:53 14:53 WBC 8.49 (4.8-10.8) K/uL RBC 4.28 (4.2-5.4) M/uL Hgb 12.9 (12.0-16.0) g/dL Hct 38.4 (37-47) % MCV 89.7 (80-100) fL MCH 30.1 (25-34) pg MCHC 33.6 (32-36) g/dL RDW Std Deviation 44.4 (36.4-46.3) fL RDW Coeff of Ovidio 13.6 (11.5-14.5) % Plt Count 161 (130-400) K/uL MPV 11.3 H (7.4-10.4) fL Immature Gran % (Auto) 0.2 % Neut % (Auto) 79.9 % Lymph % (Auto) 10.2 % [place] % (Auto) 8.5 % Eos % (Auto) 0.8 % Baso % (Auto) 0.4 % Neut # (Auto) 6.78 H (1.4-6.5) K/uL Lymph # (Auto) 0.87 L (1.2-3.4) K/uL [place] # (Auto) 0.72 H (0.11-0.59) K/uL Eos # (Auto) 0.07 (0-0.5) K/uL Baso # (Auto) 0.03 (0-0.2) K/uL Immature Gran # (Auto) 0.02 (0.00-0.02) K/uL PT 12.1 H (9.0-12.0) Seconds INR 1.2 H (0.9-1.1) APTT 30.0 (21.0-31.0) Seconds PTT Ratio 1.1 Sodium (136-145) mmol/L Potassium (3.5-5.1) mmol/L Chloride (98-107) mmol/L Carbon Dioxide (21-32) mmol/L Anion Gap (3-11) BUN (7-18) mg/dl Creatinine (0.6-1.2) mg/dl Est Cr Clr Drug Dosing Est GFR ( Amer) Est GFR (Non-Af Amer) BUN/Creatinine Ratio (10-20) Glucose (70-99) mg/dl Calcium (8.5-10.1) mg/dl Total Bilirubin (0.2-1) mg/dl AST (15-37) U/L ALT (12-78) U/L Alkaline Phosphatase (45-117) U/L Total Protein (6.4-8.2) gm/dl Albumin (3.4-5.0) gm/dl Globulin (2.5-4.0) gm/dl Albumin/Globulin Ratio (0.9-2) POC Stool Occult Blood (Negative) Blood Type A Negative Antibody Screen NEGATIVE 09/09/19 09/09/19 Range/Units 14:53 14:59 WBC (4.8-10.8) K/uL RBC (4.2-5.4) M/uL Hgb (12.0-16.0) g/dL Hct (37-47) % MCV (80-100) fL MCH (25-34) pg MCHC (32-36) g/dL RDW Std Deviation (36.4-46.3) fL RDW Coeff of Ovidio (11.5-14.5) % Plt Count (130-400) K/uL MPV (7.4-10.4) fL Immature Gran % (Auto) % Neut % (Auto) % Lymph % (Auto) % [place] % (Auto) % Eos % (Auto) % Baso % (Auto) % Neut # (Auto) (1.4-6.5) K/uL Lymph # (Auto) (1.2-3.4) K/uL [place] # (Auto) (0.11-0.59) K/uL Eos # (Auto) (0-0.5) K/uL Baso # (Auto) (0-0.2) K/uL Immature Gran # (Auto) (0.00-0.02) K/uL PT (9.0-12.0) Seconds INR (0.9-1.1) APTT (21.0-31.0) Seconds PTT Ratio Sodium 137 (136-145) mmol/L Potassium 3.9 (3.5-5.1) mmol/L Chloride 105 (98-107) mmol/L Carbon Dioxide 26 (21-32) mmol/L Anion Gap 6.0 (3-11) BUN 35 H (7-18) mg/dl Creatinine 1.34 H (0.6-1.2) mg/dl Est Cr Clr Drug Dosing Not Reportable Est GFR ( Amer) 44.2 Est GFR (Non-Af Amer) 38.1 BUN/Creatinine Ratio 26.3 H (10-20) Glucose 106 H (70-99) mg/dl Calcium 10.3 H (8.5-10.1) mg/dl Total Bilirubin 0.8 (0.2-1) mg/dl AST 12 L (15-37) U/L ALT 21 (12-78) U/L Alkaline Phosphatase 73 (45-117) U/L Total Protein 8.2 (6.4-8.2) gm/dl Albumin 4.0 (3.4-5.0) gm/dl Globulin 4.2 H (2.5-4.0) gm/dl Albumin/Globulin Ratio 0.9 (0.9-2) POC Stool Occult Blood Positive A (Negative) Blood Type Antibody Screen Administered Medications Sodium Chloride (Nss 1000ml) 1,000 mls @ 125 mls/hr IV .Q8H STA Stop: 09/09/19 22:14 Last Admin: 09/09/19 15:17 Dose: 125 mls/hr Documented by: [id number] Polyethylene Glycol/Electrolytes (Golytely) 8 dose PO TODAY@0600,2030 BETSY Stop: 09/10/19 06:01 Last Admin: 09/09/19 21:25 Dose: 8 dose Documented by: [id number] Simvastatin (Zocor) 40 mg PO HS BETSY Stop: 10/09/19 20:59 Last Admin: 09/09/19 21:26 Dose: 40 mg Documented by: [id number] Discharge Plan Visit Data *Final* Discharge Date/Time: 09/09/19 19:24 Chief Complaint: GI Bleed Stated Complaint: RECTAL BLEED ED Provider: Salomón Giron Discharge Problem: Acute GI bleeding Patient Disposition: Admitted As Inpatient Discharge Instructions Interventions: ED Discharge Assessment Last Done: 09/09/19 19:24
[2019-09-09 15:04] LABS: Basophils # (auto) 0.03 K/uL (0-0.2); Basophils % (auto) 0.4 %; Eosinophils # (auto) 0.07 K/uL (0-0.5); Eosinophils % (auto) 0.8 %; Hematocrit (blood only) 38.4 % (37-47); Hemoglobin 12.9 g/dL (12.0-16.0); Immature Granulocytes # (auto) 0.02 K/uL (0.00-0.02); Immature Granulocytes % (auto) 0.2 %; Lymphocytes # (auto) 0.87 K/uL (1.2-3.4); Lymphocytes % (auto) 10.2 %; Mean Corpuscular Hemoglobin 30.1 pg (25-34); Mean Corpuscular Hgb Conc 33.6 g/dL (32-36); Mean Corpuscular Volume 89.7 fL (80-100); Mean Platelet Volume 11.3 fL (7.4-10.4); Monocytes # (auto) 0.72 K/uL (0.11-0.59); Monocytes % (auto) 8.5 %; Neutrophils # (auto) 6.78 K/uL (1.4-6.5); Neutrophils % (auto) 79.9 %; Platelet Count 161 K/uL (130-400); RDW Coefficient of Variation 13.6 % (11.5-14.5); RDW Standard Deviation 44.4 fL (36.4-46.3); Red Blood Count 4.28 M/uL (4.2-5.4); White Blood Count 8.49 K/uL (4.8-10.8)
[2019-09-09 15:20] LABS: Alanine Aminotransferase 21 U/L (12-78); Aspartate Aminotransferase 12 U/L (15-37); BUN Creatinine Ratio 26.3 (10-20); Blood Urea Nitrogen 35 mg/dl (7-18); Calcium 10.3 mg/dl (8.5-10.1); Carbon Dioxide 26 mmol/L (21-32); Chloride 105 mmol/L (98-107); Est GFR (African American) 44.2; Est GFR (Non-African American) 38.1; Glucose 106 mg/dl (70-99); Potassium 3.9 mmol/L (3.5-5.1); Sodium 137 mmol/L (136-145)
[2019-09-09 15:23] LABS: Albumin Globulin Ratio 0.9 (0.9-2); Alkaline Phosphatase 73 U/L (45-117); Bilirubin,Total 0.8 mg/dl (0.2-1); Globulin 4.2 gm/dl (2.5-4.0); Total Protein 8.2 gm/dl (6.4-8.2)
[2019-09-09 15:30] LABS: INR 1.2 (0.9-1.1); Partial Thromboplastin Ratio 1.1; Prothrombin Time 12.1 Seconds (9.0-12.0)
--- NOTE | 2019-09-09 19:11 | History & Physical Report ---
Date of Service September 09, 2019 Assessment & Plan (1) Acute GI bleedinyo C female presenting with painless rectal bleeding. Afebrile, HD stable, H/H acceptable at 12.9/38.4, respectively. Patient with no symptoms at present. Most likely secondary to diverticular bleed vs hemorrhoidal bleed. Last colonoscopy [place] [address] Todd -Admit to medical floor with telemetry monitoring -Maintain two large peripheral IVs -Trend CBC q 8 hours, transfuse for ongoing blood loss, symptomatic anemia or Hgb < 7 -Bowel prep with Go-Lytly, plan for Colonoscopy tomorrow -GI consultation appreciated Present on Admission?: Yes (2) Atrial fibrillation: Patient with atrial fibrillation, anticoagulated with Apixaban. Rate controlled at present -Telemetry monitoring -Continue Atenolol 50mg po q AM - cautious use of BB during acute bleed -Hold Apixaban for now Present on Admission?: Yes (3) Cerebrovascular accident: Patient with remote history of CVA s/p tPA. She is doing well -Hold Plavix -Continue Simvastatin Present on Admission?: Yes (4) Hypercholesterolemia: Chronic -Continue Simvastatin 40mg po qHS Present on Admission?: Yes (5) Left bundle-branch block: Chronic -Noted Present on Admission?: Yes (6) Hypertension: Blood pressure stable -Continue Atenolol as above -Hold Irbesartan/HCTZ in setting of acute bleed F/E/N - NSS at 80mL/hr x 1 liter, monitor electrolytes and replete as needed, NPO Code - Full Dispo - Admit to med/tele History of Present Illness Chief Complaint: Rectal bleeding Primary Care Provider: Russ Dobson MD Olimpia Iniguez is a pleasant 79yo C female presenting with rectal bleeding x 1 day. Patient with a history of atrial fibrillation on Apixaban anticoagulation as well as Eliquis for prior CVA. Patient was getting ready to go to a "[employer] get together" this afternoon when she went to the restroom she passed a large amount of bright red blood per rectum, no clots. She denies abdominal pain or cramping, nausea, vomiting, diarrhea, constipation or straining. No pain with BM. She denies CP/palpitations/SOB/TOBIAS/dizziness Upon arrival to the ER she afebrile, WP=477 otherwise hemodynamically stable. She had a second episode of bright red blood per rectum in the ER. Colonoscopy 07/11/16 - Case: multiple small mouthed diverticula found in the sigmoid colon. A localized are of mildly vascular mucosa was found in the rectum. Non-bleeding internal hemorrhoids were found during retroflexion. The hemorrhoids were small. Allergies Allergy/AdvReac Type Severity Reaction Status Date / Time latex Allergy Unknown Rash Verified 09/09/19 16:08 acetaminophen AdvReac Intermediate extreme Verified 09/09/19 16:08 nervous feeling and anxiety oxycodone AdvReac Intermediate extreme Verified 09/09/19 16:08 nervous feeling and anxiety paroxetine [From Paxil] AdvReac Unknown edema and Verified 09/09/19 16:08 anxiety Sulfa (Sulfonamide AdvReac Unknown Tachycardia Verified 09/09/19 16:08 Antibiotics) seafood Allergy Severe nausea and Uncoded 09/09/19 16:08 vomiting profuse Home Medications Home Medications Medication Instructions Recorded Confirmed Type simvastatin 40 mg tablet 40 mg PO HS #30 tab 05/04/19 09/09/19 Rx apixaban 2.5 mg tablet 2.5 mg PO BID #180 tab 08/03/19 09/09/19 Rx atenolol 50 mg PO QAM 09/09/19 09/09/19 History calcium carbonate-vitamin D3 1 tab PO DAILY 09/09/19 09/09/19 History [Calcium 600 + D(3)] irbesartan-hydrochlorothiazide 1 tab PO QAM 09/09/19 09/09/19 History magnesium 0 mg PO QAM 09/09/19 09/09/19 History zolpidem 5 - 10 mg PO HS PRN 09/09/19 09/09/19 History Past Med/Surg History Medical History (Updated 09/09/19 @ 19:37 by Tamar Couch DO) Carotid artery plaque Cerebrovascular accident (Resolved 05/2018) 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 and bilateral salpingo-oophorectomy Stage TII N0M0 stage IIB Status post external beam radiation as well as HDR boost completed 2004" Hypercholesterolemia Hyperlipidemia LDL goal <70 Hyperparathyroidism, secondary Hypertension Insomnia Left bundle-branch block Moderate mitral stenosis Moderate to severe mitral regurgitation Moderate tricuspid regurgitation Osteopenia (Acute) Received intravenous tissue plasminogen activator (tPA) in emergency department (Resolved) Renal insufficiency Scoliosis (Acute) Vitamin D insufficiency (Acute) Surgical History (Updated 06/10/19 @ 10:28 by Li Olivares MA) H/O aortic valve replacement H/O colonoscopy History of mastectomy History of total abdominal hysterectomy S/P aortic valve replacement with bioprosthetic valve (2010) Family History (Updated 06/10/19 @ 10:29 by Li Olivares MA) Father Cancer Colorectal cancer Mother Diabetes Hypertension Heart disease Brother Hypertension Social History (Updated 06/10/19 @ 10:29 by Li Olivares MA) Preferred Language: Japanese Communication Ability: Effective Civil Division Deputy Sheriff Required: No Beliefs That Will Affect Care: None marital status: Current Living Situation: Alone current occupational status: retired Feels Safe at Home: Yes Smoking Status: Never smoker Tobacco Type: cigarettes ; Age Started Using Tobacco: 22 ; Age Quit Using Tobacco: 62 ; packs per day: 0.5 ; Cigarettes Per Day: 10 ; Second Hand Exposure: No ; Hx Alcohol Use: No Hx Substance Use: No Review of Systems Review of Systems: All systems reviewed & are unremarkable except as noted in HPI & below Physical Exam Physical Exam: General: patient resting comfortably, NAD, non-toxic in appearance, AA&O x 4 Skin: warm, dry, intact, no rashes or lesions HEENT: NC/AT, PERRL, EOMI, anicteric sclera, conjunctiva without injection, external ear normal to inspection and nontender, nares patent, moist mucus membranes, dentition intact, no oropharyngeal lesions, neck supple, trachea midline, no LAD, no thyromegaly, no JVD Heart: +S1/S2, regular, no m/r/g Lungs: equal air entry bilaterally, no rales/rhonchi/wheezes Abd: +BS, soft, NT/ND, no masses/organomegaly/ascites Ext: warm, 2+ pulses in UE/LE bilaterally, no clubbing/cyanosis or edema Neuro: nonfocal, patient AA&O x 4, speech intact, no facial droop, moving all extremities on command with equal strength 5/5 Results & Data Results & Data ([facility]) Vital Signs (Past 12 Hours) Vital Signs Temp Pulse Resp BP Pulse Ox 09/09/19 17:00 100 H 22 120/64 96 09/09/19 16:30 101 H 16 95 09/09/19 16:00 93 H 21 128/60 96 09/09/19 15:31 88 17 126/54 L 97 09/09/19 15:02 91 H 18 97 09/09/19 15:00 100 H 21 129/63 96 09/09/19 14:59 102 H 20 96 09/09/19 14:16 36.6 C 84 16 126/66 95 Laboratory Results Lab Results 09/09/19 09/09/19 09/09/19 Range/Units 14:53 14:53 14:53 WBC 8.49 (4.8-10.8) K/uL RBC 4.28 (4.2-5.4) M/uL Hgb 12.9 (12.0-16.0) g/dL Hct 38.4 (37-47) % MCV 89.7 (80-100) fL MCH 30.1 (25-34) pg MCHC 33.6 (32-36) g/dL RDW Std Deviation 44.4 (36.4-46.3) fL RDW Coeff of Ovidio 13.6 (11.5-14.5) % Plt Count 161 (130-400) K/uL MPV 11.3 H (7.4-10.4) fL Immature Gran % (Auto) 0.2 % Neut % (Auto) 79.9 % Lymph % (Auto) 10.2 % [place] % (Auto) 8.5 % Eos % (Auto) 0.8 % Baso % (Auto) 0.4 % Neut # (Auto) 6.78 H (1.4-6.5) K/uL Lymph # (Auto) 0.87 L (1.2-3.4) K/uL [place] # (Auto) 0.72 H (0.11-0.59) K/uL Eos # (Auto) 0.07 (0-0.5) K/uL Baso # (Auto) 0.03 (0-0.2) K/uL Immature Gran # (Auto) 0.02 (0.00-0.02) K/uL PT 12.1 H (9.0-12.0) Seconds INR 1.2 H (0.9-1.1) APTT 30.0 (21.0-31.0) Seconds PTT Ratio 1.1 Sodium (136-145) mmol/L Potassium (3.5-5.1) mmol/L Chloride (98-107) mmol/L Carbon Dioxide (21-32) mmol/L Anion Gap (3-11) BUN (7-18) mg/dl Creatinine (0.6-1.2) mg/dl Est Cr Clr Drug Dosing Est GFR ( Amer) Est GFR (Non-Af Amer) BUN/Creatinine Ratio (10-20) Glucose (70-99) mg/dl Calcium (8.5-10.1) mg/dl Total Bilirubin (0.2-1) mg/dl AST (15-37) U/L ALT (12-78) U/L Alkaline Phosphatase (45-117) U/L Total Protein (6.4-8.2) gm/dl Albumin (3.4-5.0) gm/dl Globulin (2.5-4.0) gm/dl Albumin/Globulin Ratio (0.9-2) POC Stool Occult Blood (Negative) Blood Type A Negative Antibody Screen NEGATIVE 09/09/19 09/09/19 Range/Units 14:53 14:59 WBC (4.8-10.8) K/uL RBC (4.2-5.4) M/uL Hgb (12.0-16.0) g/dL Hct (37-47) % MCV (80-100) fL MCH (25-34) pg MCHC (32-36) g/dL RDW Std Deviation (36.4-46.3) fL RDW Coeff of Ovidio (11.5-14.5) % Plt Count (130-400) K/uL MPV (7.4-10.4) fL Immature Gran % (Auto) % Neut % (Auto) % Lymph % (Auto) % [place] % (Auto) % Eos % (Auto) % Baso % (Auto) % Neut # (Auto) (1.4-6.5) K/uL Lymph # (Auto) (1.2-3.4) K/uL [place] # (Auto) (0.11-0.59) K/uL Eos # (Auto) (0-0.5) K/uL Baso # (Auto) (0-0.2) K/uL Immature Gran # (Auto) (0.00-0.02) K/uL PT (9.0-12.0) Seconds INR (0.9-1.1) APTT (21.0-31.0) Seconds PTT Ratio Sodium 137 (136-145) mmol/L Potassium 3.9 (3.5-5.1) mmol/L Chloride 105 (98-107) mmol/L Carbon Dioxide 26 (21-32) mmol/L Anion Gap 6.0 (3-11) BUN 35 H (7-18) mg/dl Creatinine 1.34 H (0.6-1.2) mg/dl Est Cr Clr Drug Dosing Not Reportable Est GFR ( Amer) 44.2 Est GFR (Non-Af Amer) 38.1 BUN/Creatinine Ratio 26.3 H (10-20) Glucose 106 H (70-99) mg/dl Calcium 10.3 H (8.5-10.1) mg/dl Total Bilirubin 0.8 (0.2-1) mg/dl AST 12 L (15-37) U/L ALT 21 (12-78) U/L Alkaline Phosphatase 73 (45-117) U/L Total Protein 8.2 (6.4-8.2) gm/dl Albumin 4.0 (3.4-5.0) gm/dl Globulin 4.2 H (2.5-4.0) gm/dl Albumin/Globulin Ratio 0.9 (0.9-2) POC Stool Occult Blood Positive A (Negative) Blood Type Antibody Screen ECG Additional Comments: The study shows AF at 86bpm, LBBB (preexisting), no acute ischemic changes Code Status & VTE Plan Code Status FULL PG Care Time/CCT Total # of Minutes Spent Total Time Spent with Patient: Total time spent is greater than 50% in coordination of care (as documented) at patient's floor/unit and/or counseling patient: Coding Level of Care Code 36669 Initial Inpt Care Lvl 3 Diagnoses Acute GI bleeding K92.2 Atrial fibrillation I48.0 Atrial fibrillation type: paroxysmal Cerebrovascular accident I63.9 CVA mechanism: unspecified Hypercholesterolemia E78.00 Left bundle-branch block I44.7 Hypertension I10 Hypertension type: essential hypertension (1) Atrial fibrillation Atrial fibrillation type: paroxysmal Qualified Code(s): I48.0 - Paroxysmal atrial fibrillation (2) Cerebrovascular accident CVA mechanism: unspecified Qualified Code(s): I63.9 - Cerebral infarction, unspecified (3) Hypertension Hypertension type: essential hypertension Qualified Code(s): I10 - Essential (primary) hypertension
--- NOTE | 2019-09-09 19:24 | Electrocardiogram Report ---
Test Reason : Blood Pressure : / mmHG Vent. Rate : 086 BPM Atrial Rate : 086 BPM P-R Int : 000 ms QRS Dur : 146 ms QT Int : 390 ms P-R-T Axes : 000 027 146 degrees QTc Int : 466 ms Atrial fibrillation Left bundle branch block Abnormal ECG When compared with ECG of 16-JUN-2018 06:21, Atrial fibrillation has replaced Sinus rhythm T wave inversion no longer evident in Inferior leads T wave inversion no longer evident in Anterior leads T wave inversion more evident in Lateral leads Confirmed by Russ Rodriguez ([id number]) on 09/09/2019 7:24:20 PM Referred By: Confirmed By:Richard Rodriguez
[2019-09-09] MEDS ORDERED: SODIUM CHLORIDE 0.9% 1000ML 1,000 ML IV SCH (20:07)
[2019-09-09] MEDS ORDERED: ACETAMINOPHEN 325 MG TAB PO PRN (20:07)
[2019-09-09] MEDS ORDERED: ONDANSETRON INJ 2 MG/ML 2 ML VIAL IV PRN (20:07)
[2019-09-09] MEDS ORDERED: SIMVASTATIN 40 MG TAB PO SCH (21:00)
[2019-09-09] MEDS: LAVAGE SOLUTION 4000ML PO SCH (21:25)
[2019-09-09 21:31] LABS: Magnesium 1.7 mg/dl (1.8-2.4); Phosphorus 2.7 mg/dl (2.5-4.9)
[2019-09-09] MEDS: ZOLPIDEM TARTRATE 10 MG TAB PO PRN (23:39)
[2019-09-10 00:31] LABS: Basophils # (auto) 0.02 K/uL (0-0.2); Basophils % (auto) 0.2 %; Eosinophils # (auto) 0.04 K/uL (0-0.5); Eosinophils % (auto) 0.4 %; Hematocrit (blood only) 35.6 % (37-47); Hemoglobin 12.1 g/dL (12.0-16.0); Immature Granulocytes # (auto) 0.01 K/uL (0.00-0.02); Immature Granulocytes % (auto) 0.1 %; Lymphocytes # (auto) 0.97 K/uL (1.2-3.4); Lymphocytes % (auto) 10.8 %; Mean Corpuscular Hemoglobin 30.3 pg (25-34); Mean Corpuscular Volume 89.2 fL (80-100); Mean Platelet Volume 11.3 fL (7.4-10.4); Monocytes # (auto) 0.74 K/uL (0.11-0.59); Monocytes % (auto) 8.2 %; Neutrophils # (auto) 7.23 K/uL (1.4-6.5); Neutrophils % (auto) 80.3 %; Platelet Count 143 K/uL (130-400); RDW Coefficient of Variation 13.4 % (11.5-14.5); Red Blood Count 3.99 M/uL (4.2-5.4); White Blood Count 9.01 K/uL (4.8-10.8)
[2019-09-10] MEDS: LAVAGE SOLUTION 4000ML PO SCH (05:08)
--- NOTE | 2019-09-10 07:52 | Hospitalist Progress Note ---
Date of Service September 10, 2019 Assessment & Plan (1) Acute GI bleedinyo C female presenting with painless rectal bleeding. Afebrile, HD stable, H/H acceptable at 12.9/38.4, respectively. Patient with no symptoms at present. Most likely secondary to diverticular bleed vs hemorrhoidal bleed. Last colonoscopy [place] [address] Todd Patient seen by gastroenterology she is no decrement in her hemoglobin she is having a colonoscopy on 09/10/2019 (2) Atrial fibrillation: Patient with atrial fibrillation, anticoagulated with Apixaban. Rate controlled at present -Telemetry monitoring -Continue Atenolol 50mg po q AM - cautious use of BB during acute bleed -Continue to hold Apixaban until after colonoscopy (3) Cerebrovascular accident: Patient with remote history of CVA s/p tPA. She is doing well -Hold Plavix until after colonoscopy to determine risk of rebleeding -Continue Simvastatin (4) Hypercholesterolemia: Chronic remains on simvastatin 40mg po qHS (5) Left bundle-branch block: Chronic -Noted (6) Hypertension: Blood pressure stable -Continue Atenolol as above -Continue to hold Irbesartan/HCTZ in setting of acute bleed Code - Full Dispo - Admit to med/tele Admission and Anticipated Discharge Date Admission Date: September 09, 2019 Subjective Patient has no abdominal pain no further rectal bleeding is anxious about her colonoscopy Review of Systems Review of Systems: Mild distress and fatigue no headache, blurry or double vision no speech or swallowing issues no chest pain, pressure or palpitations no shortness of breath, cough or wheezes no abdominal pain, nausea or vomiting, diarrhea or constipation no dysuria, hematuria or frequency no focal joint pain or swelling no back pain, CVA tenderness or radicular pain no bruising, bleeding or rashes no focal signs of weakness or numbness or altered sensation no complaints or anxiety or depression. Physical Exam Physical Exam: The patient appeared well nourished and normally developed. Vital signs as documented. Head exam is normocephalic atraumatic no scleral icterus Neck is without JVD, thyromegaly, or carotid bruits. Lungs are clear to auscultation, no focal loss of breath sounds Cardiac exam, Rhythm is regular.. Very mild systolic murmurs heard Abdominal exam reveals normal bowel sounds, soft, absolutely non tender, no masses Extremities are nonedematous and both pedal pulses are normal. Neurologic exam is alert and oriented, no focal loss of strength or sensation Skin is without bruises or rashes Psychologically is without concerns for anxiety or depression Results & Data Results & Data ([facility]) Vital Signs (Past 12 Hours) Vital Signs Temp Pulse Pulse Resp BP Pulse Ox 09/10/19 07:14 97.5 F L 93 H 16 99/57 L 95 09/10/19 03:03 97.3 F L 91 H 18 93/52 L 94 09/09/19 23:00 97.9 F 94 H 16 113/57 L 95 09/09/19 20:19 94 H 09/09/19 20:13 97.3 F L 97 H 18 127/73 95 PG Care Time/CCT Total # of Minutes Spent Total Time Spent with Patient: Total time spent is greater than 50% in coordination of care (as documented) at patient's floor/unit and/or counseling patient: Coding Level of Care Code 55621 Subseq Hosp Care Lvl 3 Diagnoses Acute GI bleeding K92.2 Atrial fibrillation I48.0 Atrial fibrillation type: paroxysmal Cerebrovascular accident I63.9 CVA mechanism: unspecified Hypercholesterolemia E78.00 Left bundle-branch block I44.7 Hypertension I10 Hypertension type: essential hypertension (1) Atrial fibrillation Atrial fibrillation type: paroxysmal Qualified Code(s): I48.0 - Paroxysmal atrial fibrillation (2) Cerebrovascular accident CVA mechanism: unspecified Qualified Code(s): I63.9 - Cerebral infarction, unspecified (3) Hypertension Hypertension type: essential hypertension Qualified Code(s): I10 - Essential (primary) hypertension
[2019-09-10 08:15] LABS: Basophils # (auto) 0.01 K/uL (0-0.2); Basophils % (auto) 0.1 %; Eosinophils # (auto) 0.05 K/uL (0-0.5); Eosinophils % (auto) 0.7 %; Hematocrit (blood only) 34.6 % (37-47); Hemoglobin 11.6 g/dL (12.0-16.0); Immature Granulocytes # (auto) 0.02 K/uL (0.00-0.02); Immature Granulocytes % (auto) 0.3 %; Lymphocytes # (auto) 0.62 K/uL (1.2-3.4); Lymphocytes % (auto) 8.6 %; Mean Corpuscular Hemoglobin 30.1 pg (25-34); Mean Corpuscular Hgb Conc 33.5 g/dL (32-36); Mean Corpuscular Volume 89.6 fL (80-100); Mean Platelet Volume 11.8 fL (7.4-10.4); Monocytes # (auto) 0.72 K/uL (0.11-0.59); Monocytes % (auto) 9.9 %; Neutrophils # (auto) 5.82 K/uL (1.4-6.5); Neutrophils % (auto) 80.4 %; Platelet Count 138 K/uL (130-400); RDW Coefficient of Variation 13.6 % (11.5-14.5); RDW Standard Deviation 44.8 fL (36.4-46.3); Red Blood Count 3.86 M/uL (4.2-5.4); White Blood Count 7.24 K/uL (4.8-10.8)
[2019-09-10 08:54] LABS: Alanine Aminotransferase 19 U/L (12-78); Albumin Level 3.5 gm/dl (3.4-5.0); Aspartate Aminotransferase 15 U/L (15-37); BUN Creatinine Ratio 24.7 (10-20); Bilirubin Direct 0.2 mg/dl (0-0.2); Blood Urea Nitrogen 25 mg/dl (7-18); Calcium 9.2 mg/dl (8.5-10.1); Carbon Dioxide 22 mmol/L (21-32); Chloride 109 mmol/L (98-107); Est GFR (African American) 62.9; Est GFR (Non-African American) 54.3; Glucose 97 mg/dl (70-99); Potassium 3.6 mmol/L (3.5-5.1); Sodium 141 mmol/L (136-145)
[2019-09-10 08:55] LABS: Alkaline Phosphatase 60 U/L (45-117)
--- NOTE | 2019-09-10 10:59 | Gastrointestinal Consultation ---
Date of Consultation September 10, 2019 Assessment & Plan (1) Rectal bleeding: Patient is a 79 yo with painless rectal bleeding on Eliquis. -NPO -Colonoscopy today -Continue to monitor H/H -Further recommendations pending results of testing Thank you for allowing us to participate in the care of this patient. If you should have any further questions or concerns, do not hesitate to contact us at [phone] or [phone]. Present on Admission?: Yes Supervising Physician Co-Signing Physician Notes Agree with TK Ureña as above Abd: Soft, NT, ND, +BS Proceed with colonoscopy Continue supportive care History of Present Illness Reason for Consultation: "Lower GI bleeding" Attending Physician: Jules Rodríguez MD History of Present Illness Patient is a 79 yo female who presented to the ED on 09/09/2019 with painless rectal bleeding. She reports that this is something that she had never struggled with previously. She denies rectal pain. She denies fluctuations in her bowel martino bits. She had a colonoscopy in 2017 that indicated internal hemorrhoids and diverticulosis, as well as non-specific vascular changes in the rectum. She was recently started on Eliquis for Atrial Fibrillation. She denies abdominal pain. She reports she is exhausted. She notes that she was advised to complete a bowel prep last night, but apparently struggled through it. She only consumed 1/2 of the prep, but reports she is having clear bowel movements. She denies further rectal bleeding throughout the prep process last night. She reports a family history of colon cancer (dad). She denies other issues at the present time. An H/H is 11.6/34.6 today. Allergies Allergy/AdvReac Type Severity Reaction Status Date / Time latex Allergy Unknown Rash Verified 09/09/19 16:08 acetaminophen AdvReac Intermediate extreme Verified 09/09/19 16:08 nervous feeling and anxiety oxycodone AdvReac Intermediate extreme Verified 09/09/19 16:08 nervous feeling and anxiety paroxetine [From Paxil] AdvReac Unknown edema and Verified 09/09/19 16:08 anxiety Sulfa (Sulfonamide AdvReac Unknown Tachycardia Verified 09/09/19 16:08 Antibiotics) seafood Allergy Severe nausea and Uncoded 09/09/19 16:08 vomiting profuse Home Medications Home Medications Medication Instructions Recorded Confirmed Type simvastatin 40 mg tablet 40 mg PO HS #30 tab 05/04/19 09/09/19 Rx apixaban 2.5 mg tablet 2.5 mg PO BID #180 tab 08/03/19 09/09/19 Rx atenolol 50 mg PO QAM 09/09/19 09/09/19 History calcium carbonate-vitamin D3 1 tab PO DAILY 09/09/19 09/09/19 History [Calcium 600 + D(3)] irbesartan-hydrochlorothiazide 1 tab PO QAM 09/09/19 09/09/19 History magnesium 0 mg PO QAM 09/09/19 09/09/19 History zolpidem 5 - 10 mg PO HS PRN 09/09/19 09/09/19 History Patient History Medical History Carotid artery plaque Cerebrovascular accident (Resolved 05/2018) 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 and bilateral salpingo-oophorectomy Stage TII N0M0 stage IIB Status post external beam radiation as well as HDR boost completed 2004" Hypercholesterolemia Hyperlipidemia LDL goal <70 Hyperparathyroidism, secondary Hypertension Insomnia Left bundle-branch block Moderate mitral stenosis Moderate to severe mitral regurgitation Moderate tricuspid regurgitation Osteopenia (Acute) Received intravenous tissue plasminogen activator (tPA) in emergency department (Resolved) Renal insufficiency Scoliosis (Acute) Vitamin D insufficiency (Acute) Surgical History H/O aortic valve replacement H/O colonoscopy History of mastectomy History of total abdominal hysterectomy S/P aortic valve replacement with bioprosthetic valve (2009) Family History Father Cancer Colorectal cancer Mother Diabetes Hypertension Heart disease Brother Hypertension Social History (Updated 06/10/19 @ 10:29 by Li Olivares MA) Preferred Language: Kiswahili Communication Ability: Effective Floral Specialist Required: No Beliefs That Will Affect Care: None marital status: Current Living Situation: Family current occupational status: retired Feels Safe at Home: Yes Smoking Status: Former smoker Tobacco Type: cigarettes ; Age Started Using Tobacco: 22 ; Age Quit Using Tobacco: 62 ; packs per day: 0.5 ; Cigarettes Per Day: 10 ; Second Hand Exposure: No ; Hx Alcohol Use: No Hx Substance Use: No Review of Systems Constitutional: no fever and no chills Eyes: no problem reported Ear, Nose, Mouth, Throat: no problem reported Respiratory: no cough and no dyspnea Cardiovascular: no chest pain Gastrointestinal: + blood in stools; no abdominal pain and no change in bowel habits Musculoskeletal: no problem reported Integumentary: no problem reported Psychiatric: no problem reported Physical Exam Constitutional: WD/WN, vitals as above Respiratory: normal respiratory effort, lungs clear to auscultation Cardiovascular: RRR, no murmur, no edema Gastrointestinal (Abdomen): normal bowel sounds, soft, nontender, no hepatosplenomegaly Musculoskeletal: no cyanosis or clubbing, extremities motor strength 5/5 Skin: no rashes, warm and dry Psychiatric: A+Ox3, euthymic affect Results & Data ([facility]) Vital Signs (Past 12 Hours) Vital Signs Temp Pulse Resp BP Pulse Ox 09/10/19 07:14 36.4 C L 93 H 16 99/57 L 95 09/10/19 03:03 36.3 C L 91 H 18 93/52 L 94 09/09/19 23:00 36.6 C 94 H 16 113/57 L 95 PG Care Time/CCT Total # of Minutes Spent Total Time Spent with Patient: Total time spent is greater than 50% in coordination of care (as documented) at patient's floor/unit and/or counseling patient: Coding Level of Care Code 63659 Initial Inpt Care Lvl 3 Diagnoses Rectal bleeding K62.5
[2019-09-10] MEDS: ATENOLOL 50 MG TABLET PO SCH (11:37)
--- NOTE | 2019-09-10 14:15 | Anesthesiology Consultation ---
Date of Service September 10, 2019 Assessment & Plan (1) Encounter for pre-operative examination: Chart Review Chart Review: Acceptable Risk for Surgery Consults Requested none ASA ASA4 Proposed Anesthesia Anesthesia Type: MAC Risk / Benefits Reviewed With: PT / POA / Parent / Guardian, Accepts Plan and Informed Consent Obtained History Surgery Operation Date: 09/10/19 18:10 Proposed Procedures p Colonoscopy Dr. Perez Martell Case, DO Height/Weight Weight: 62.6 kg Allergies Allergy/AdvReac Type Severity Reaction Status Date / Time latex Allergy Unknown Rash Verified 09/09/19 16:08 acetaminophen AdvReac Intermediate extreme Verified 09/09/19 16:08 nervous feeling and anxiety oxycodone AdvReac Intermediate extreme Verified 09/09/19 16:08 nervous feeling and anxiety paroxetine [From Paxil] AdvReac Unknown edema and Verified 09/09/19 16:08 anxiety Sulfa (Sulfonamide AdvReac Unknown Tachycardia Verified 09/09/19 16:08 Antibiotics) seafood Allergy Severe nausea and Uncoded 09/09/19 16:08 vomiting profuse Medications Home Medications Medication Instructions Recorded Confirmed Last Taken simvastatin 40 mg tablet 40 mg PO HS #30 tab 05/04/19 09/09/19 Unknown apixaban 2.5 mg tablet 2.5 mg PO BID #180 tab 08/03/19 09/09/19 Unknown atenolol 50 mg PO QAM 09/09/19 09/09/19 Unknown calcium carbonate-vitamin D3 1 tab PO DAILY 09/09/19 09/09/19 Unknown [Calcium 600 + D(3)] irbesartan-hydrochlorothiazide 1 tab PO QAM 09/09/19 09/09/19 Unknown magnesium 0 mg PO QAM 09/09/19 09/09/19 Unknown zolpidem 5 - 10 mg PO HS PRN 09/09/19 09/09/19 Unknown Active Medications Generic Name Dose Route Start Last Admin Trade Name Freq PRN Reason Stop Dose Admin Atenolol 50 mg 09/10/19 09:00 09/10/19 11:37 Tenormin PO 10/10/19 08:59 50 mg QAM BETSY Administration Simvastatin 40 mg 09/09/19 21:00 09/09/19 21:26 Zocor PO 10/09/19 20:59 40 mg HS BETSY Administration Zolpidem Tartrate 5 - 10 mg 09/09/19 20:07 09/09/19 23:39 Ambien PO 10/09/19 20:06 5 mg HS PRN Administration Sleep Past Medical History Medical History Carotid artery plaque Cerebrovascular accident (Resolved 05/2018) 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 and bilateral salpingo-oophorectomy Stage TII N0M0 stage IIB Status post external beam radiation as well as HDR boost completed 2004" Hypercholesterolemia Hyperlipidemia LDL goal <70 Hyperparathyroidism, secondary Hypertension Insomnia Left bundle-branch block Moderate mitral stenosis Moderate to severe mitral regurgitation Moderate tricuspid regurgitation Osteopenia (Acute) Received intravenous tissue plasminogen activator (tPA) in emergency department (Resolved) Renal insufficiency Scoliosis (Acute) Vitamin D insufficiency (Acute) Exercise / Class Metabolic Activity III < 4 Walking/Shop/Light housework Past Family History Family History Father Cancer Colorectal cancer Mother Diabetes Hypertension Heart disease Brother Hypertension Past Surgical History Surgical History H/O aortic valve replacement H/O colonoscopy History of mastectomy History of total abdominal hysterectomy S/P aortic valve replacement with bioprosthetic valve (2009) Past Anesthesia History No Hx of Anesthesia Complications and No Family Hx of Anesthesia Complications History of PONV No Hx of PONV and No Hx of Motion Sickness Social History Smoking Status: Former smoker tobacco type: cigarettes Smoking cigarettes per day: 10 Do You Dip or Chew Tobacco: No Hx Alcohol Use: No Hx Substance Use: No substance use type: does not use Physical Exam Vital Signs Last Vital Signs Temp 97.5 F L 09/10/19 07:14 Pulse 95 H 09/10/19 11:20 Resp 18 09/10/19 11:20 BP 123/72 09/10/19 11:20 Pulse Ox 97 09/10/19 11:20 ENMT Mouth: no dentition abnormality Thyromental Distance: > or= 3.5 Finger Breadths Mallampati Class: II Neck normal visual inspection Respiratory normal respiratory effort Auscultation: lungs clear to auscultation bilaterally Cardiovascular Rate/Rhythm: + abnormal rate and + abnormal rhythm Heart Sounds: + murmur (JAS 4/6) Testing Laboratory Results 09/10/19 07:21 09/10/19 07:21 PT 12.1 Seconds (9.0-12.0) H 09/09/19 14:53 INR 1.2 (0.9-1.1) H 09/09/19 14:53 APTT 30.0 Seconds (21.0-31.0) 09/09/19 14:53 Blood Type A Negative 09/09/19 14:53 Antibody Screen NEGATIVE 09/09/19 14:53 Electrocardiogram Date: 09/09/19 Atrial fibrillation, rate 86 bpm Left bundle branch block Abnormal ECG When compared with ECG of 16-JUN-2018 06:21, Atrial fibrillation has replaced Sinus rhythm T wave inversion no longer evident in Inferior leads T wave inversion no longer evident in Anterior leads T wave inversion more evident in Lateral leads Confirmed by Russ Rodriguez ([id number]) on 09/09/2019 7:24:20 PM Echocardiogram Date: 06/14/18 LV systolic function is normal No regional wall motion abnormalities EF 65-70% Mild concentric LVH The prosthetic AV is well-seated The gradient is normal for this prosthetic AV Mild MR/TR
[2019-09-10] MEDS ORDERED: LIDOCAINE HCL 2% 2 ML VIAL/AMP(20MG/ML) INFIL ONE (15:37)
[2019-09-10] MEDS ORDERED: PROPOFOL IV EMULSION 10 MG/ML 20 ML VIAL IV ONE (15:37)
[2019-09-10] MEDS ORDERED: PHENYLEPHRINE HCL 10 MG/ML VIAL ONE (15:37)
--- NOTE | 2019-09-10 15:53 | GI REPORT ---
Patient Name: Olimpia Iniguez Procedure Date: 09/10/2019 3:13 PM Date of : 1940 Admit Type: Inpatient Age: 79 Gender: Female Attending MD: Tyree Todd DO Procedure: Colonoscopy Providers: Tyree Todd DO Referring MD: Jules Rodríguez Indications: Gastrointestinal bleeding Medicines: Monitored Anesthesia Care Complications: No immediate complications. Estimated Blood Loss: Estimated blood loss: none. Procedure: Pre-Anesthesia Assessment: - Prior to the procedure, a History and Physical was performed, and patient medications and allergies were reviewed. The patient's tolerance of previous anesthesia was also reviewed. The risks and benefits of the procedure and the sedation options and risks were discussed with the patient. All questions were answered, and informed consent was obtained. Prior Anticoagulants: The patient has taken Eliquis (apixaban), last dose was 1 day prior to procedure. ASA Grade Assessment: IV - A patient with severe systemic disease that is a constant threat to life. After reviewing the risks and benefits, the patient was deemed in satisfactory condition to undergo the procedure. After I obtained informed consent, the scope was passed under direct vision. Throughout the procedure, the patient's blood pressure, pulse, and oxygen saturations were monitored continuously. The scope was introduced through the anus and advanced to the terminal ileum. The colonoscopy was performed without difficulty. The patient tolerated the procedure well. The quality of the bowel preparation was good. The terminal ileum, ileocecal valve, appendiceal orifice, and rectum were photographed. Findings: The perianal and digital rectal examinations were normal. Multiple small-mouthed diverticula were found in the sigmoid colon. Non-bleeding internal hemorrhoids were found during retroflexion. The hemorrhoids were small. Impression: - Diverticulosis in the sigmoid colon. - Non-bleeding internal hemorrhoids. - No specimens collected. Recommendation: - [facility]. - Advance diet as tolerated. - Continue present medications, will defer to hospitalist team regarding Eliquis therapy. Tyree Todd DO 09/10/2019 3:52:58 PM This report has been signed electronically. Note Initiated On: 09/10/2019 3:13 PM Number of Addenda: 0 I attest to the content of the Intraoperative Record and orders documented therein, exceptions below {[id number]}
--- NOTE | 2019-09-10 16:11 | Anesthesiology Progress Note ---
Date of Service September 10, 2019 Anesthesia Post Procedure Vital Signs Vital Signs: Temp Pulse Pulse Pulse Resp BP BP 09/10/19 16:04 76 16 107/67 09/10/19 15:49 95 H 16 100/55 L 09/10/19 15:34 104 H 16 107/58 L 09/10/19 14:46 36.6 C 68 18 124/74 09/10/19 11:20 95 H 18 123/72 09/10/19 07:14 36.4 C L 93 H 16 99/57 L 09/10/19 03:03 36.3 C L 91 H 18 93/52 L 09/09/19 23:00 36.6 C 94 H 16 113/57 L 09/09/19 20:19 94 H 09/09/19 20:13 36.3 C L 97 H 18 127/73 09/09/19 19:30 86 21 123/59 L 09/09/19 19:01 104 H 21 132/54 L 09/09/19 18:30 109 H 21 133/72 09/09/19 18:01 110 H 17 127/63 09/09/19 17:30 88 21 128/83 09/09/19 17:00 100 H 22 120/64 09/09/19 16:30 101 H 16 Pulse Ox 09/10/19 16:04 96 09/10/19 15:49 96 09/10/19 15:34 96 09/10/19 14:46 94 09/10/19 11:20 97 09/10/19 07:14 95 09/10/19 03:03 94 09/09/19 23:00 95 09/09/19 20:19 09/09/19 20:13 95 09/09/19 19:30 95 09/09/19 19:01 98 09/09/19 18:30 09/09/19 18:01 94 09/09/19 17:30 98 09/09/19 17:00 96 09/09/19 16:30 95 Transfer of Care Handoff Completed per policy Notes Mental Status: alert / awake / arousable Patient Amnestic to Procedure: Yes Nausea / Vomiting: adequately controlled Pain: adequately controlled Airway Patency, RR, SpO2: stable & adequate BP & HR: stable & adequate Hydration State: stable & adequate Anesthetic Complications: no major complications apparent
[2019-09-10 16:57] LABS: Basophils # (auto) 0.02 K/uL (0-0.2); Basophils % (auto) 0.2 %; Eosinophils # (auto) 0.02 K/uL (0-0.5); Eosinophils % (auto) 0.2 %; Hematocrit (blood only) 38.6 % (37-47); Immature Granulocytes # (auto) 0.02 K/uL (0.00-0.02); Immature Granulocytes % (auto) 0.2 %; Lymphocytes # (auto) 0.64 K/uL (1.2-3.4); Lymphocytes % (auto) 7.3 %; Mean Corpuscular Hemoglobin 30.4 pg (25-34); Mean Corpuscular Hgb Conc 33.7 g/dL (32-36); Mean Corpuscular Volume 90.4 fL (80-100); Mean Platelet Volume 11.8 fL (7.4-10.4); Monocytes # (auto) 0.79 K/uL (0.11-0.59); Neutrophils # (auto) 7.25 K/uL (1.4-6.5); Neutrophils % (auto) 83.1 %; Platelet Count 148 K/uL (130-400); RDW Coefficient of Variation 13.7 % (11.5-14.5); Red Blood Count 4.27 M/uL (4.2-5.4); White Blood Count 8.74 K/uL (4.8-10.8)
[2019-09-10 23:24] LABS: Basophils # (auto) 0.03 K/uL (0-0.2); Basophils % (auto) 0.4 %; Eosinophils # (auto) 0.04 K/uL (0-0.5); Eosinophils % (auto) 0.5 %; Hematocrit (blood only) 35.8 % (37-47); Immature Granulocytes # (auto) 0.02 K/uL (0.00-0.02); Immature Granulocytes % (auto) 0.2 %; Lymphocytes # (auto) 1.34 K/uL (1.2-3.4); Lymphocytes % (auto) 16.3 %; Mean Corpuscular Hemoglobin 30.1 pg (25-34); Mean Corpuscular Hgb Conc 33.5 g/dL (32-36); Mean Corpuscular Volume 89.7 fL (80-100); Mean Platelet Volume 11.9 fL (7.4-10.4); Monocytes # (auto) 0.67 K/uL (0.11-0.59); Monocytes % (auto) 8.1 %; Neutrophils # (auto) 6.13 K/uL (1.4-6.5); Neutrophils % (auto) 74.5 %; Platelet Count 163 K/uL (130-400); RDW Coefficient of Variation 13.7 % (11.5-14.5); Red Blood Count 3.99 M/uL (4.2-5.4); White Blood Count 8.23 K/uL (4.8-10.8)
[2019-09-10] MEDS: ZOLPIDEM TARTRATE 10 MG TAB PO PRN (23:51)
[2019-09-11 08:06] LABS: Hematocrit (blood only) 33.5 % (37-47); Hemoglobin 11.1 g/dL (12.0-16.0); Mean Corpuscular Hemoglobin 29.9 pg (25-34); Mean Corpuscular Hgb Conc 33.1 g/dL (32-36); Mean Corpuscular Volume 90.3 fL (80-100); Mean Platelet Volume 11.4 fL (7.4-10.4); Platelet Count 129 K/uL (130-400); RDW Coefficient of Variation 13.7 % (11.5-14.5); RDW Standard Deviation 45.4 fL (36.4-46.3); Red Blood Count 3.71 M/uL (4.2-5.4); White Blood Count 6.02 K/uL (4.8-10.8)
[2019-09-11 08:38] LABS: BUN Creatinine Ratio 19.6 (10-20); Blood Urea Nitrogen 20 mg/dl (7-18); Calcium 8.8 mg/dl (8.5-10.1); Carbon Dioxide 23 mmol/L (21-32); Chloride 113 mmol/L (98-107); Est GFR (African American) 60.7; Est GFR (Non-African American) 52.4; Glucose 89 mg/dl (70-99); Potassium 3.7 mmol/L (3.5-5.1); Sodium 142 mmol/L (136-145)
[2019-09-11] MEDS: ATENOLOL 50 MG TABLET PO SCH (09:03)
--- NOTE | 2019-09-11 16:46 | Discharge Summary ---
Date of Service September 11, 2019 Admission HPI Per Admitting Provider Olimpia Iniguez is a pleasant 79yo C female presenting with rectal bleeding x 1 day. Patient with a history of atrial fibrillation on Apixaban anticoagulation as well as Eliquis for prior CVA. Patient was getting ready to go to a "porch get together" this afternoon when she went to the restroom she passed a large amount of bright red blood per rectum, no clots. She denies abdominal pain or cramping, nausea, vomiting, diarrhea, constipation or straining. No pain with BM. She denies CP/palpitations/SOB/TOBIAS/dizziness Upon arrival to the ER she afebrile, [place]=[id number] otherwise hemodynamically stable. She had a second episode of bright red blood per rectum in the ER. Colonoscopy 07/11/16 - Case: multiple small mouthed diverticula found in the sigmoid colon. A localized are of mildly vascular mucosa was found in the rectum. Non-bleeding internal hemorrhoids were found during retroflexion. The hemorrhoids were small. Principal Diagnosis Lower GI bleed suspect diverticular or hemorrhoidal bleed Acute blood loss anemia not requiring transfusion Discharge Exam The patient appeared well Vital signs as documented. Lungs are clear to auscultation and appear unlabored Cardiac exam, Rhythm is regular.. No murmurs, rubs or gallops. Abdominal exam reveals normal bowel sounds, soft non tender, no masses Extremities are nonedematous and both pedal pulses are normal. Neurologic exam is alert and oriented, no focal loss of strength or sensation Skin is without bruises or rashes Psychologically is without concerns for anxiety or depression Discharge Data Allergies Allergy/AdvReac Type Severity Reaction Status Date / Time latex Allergy Unknown Rash Verified 09/09/19 16:08 acetaminophen AdvReac Intermediate extreme Verified 09/09/19 16:08 nervous feeling and anxiety oxycodone AdvReac Intermediate extreme Verified 09/09/19 16:08 nervous feeling and anxiety paroxetine [From Paxil] AdvReac Unknown edema and Verified 09/09/19 16:08 anxiety Sulfa (Sulfonamide AdvReac Unknown Tachycardia Verified 09/09/19 16:08 Antibiotics) seafood Allergy Severe nausea and Uncoded 09/09/19 16:08 vomiting profuse Consultations 09/09/19 18:24 ED Decision to Admit Stat 09/09/19 20:07 Consult Gastroenterology Routine Procedures Performed Operation Date: 09/10/19 18:10 Actual Procedures p Colonoscopy(Left) - Tyree Todd, DO Hospital Course (1) Acute GI bleedinyo C female presenting with painless rectal bleeding. Afebrile, HD stable, H/H acceptable at 12.9/38.4, respectively. Patient with no symptoms at present. Most likely secondary to diverticular bleed vs hemorrhoidal bleed. Last colonoscopy in [address] oTdd Patient seen by gastroenterology she is no decrement in her hemoglobin she is having a colonoscopy on 09/10/2019 results Diverticulosis in the sigmoid colon non bleeding internal hemorrhoids (2) Atrial fibrillation: Patient with atrial fibrillation, anticoagulated with Apixaban. Rate controlled at present -Telemetry monitoring -Continue Atenolol 50mg po q AM - cautious use of BB during acute bleed -Continue to hold Apixaban will restart 09/15 (3) Cerebrovascular accident: Patient with remote history of CVA s/p tPA. She is doing well -Hold Plavix until after colonoscopy will recommend restating -Continue Simvastatin (4) Hypercholesterolemia: Chronic remains on simvastatin 40mg po qHS (5) Left bundle-branch block: Chronic -Noted (6) Hypertension: Blood pressure stable -Continue Atenolol Irbesartan/HCTZ in setting of acute bleed Code - Full Dispo - Admit to med/tele Total Time Total Time Spent Total Time Spent (In Minutes): It required greater than 30 minutes to prepare this patient for discharge Discharge Plan Discharge Items Patient Disposition: Home - Self-Care Reason For Visit: LOWER GI BLEED Discharge Diagnosis: lower gi bleed, most likely fro diverticula Activity: Resume your previous activity Non-emergency contact: Primary Care Provider Call non-emergency contact if: you have any medication questions and your symptoms worsen Follow-up/Referrals: Stan Dobson MD [Primary Care Provider] - Diet: Regular Addtl Attending Provider Instructions: please keep hydrated and eat healthy foods please have a follow up with your family doctor next week please hold your eliquis at this time and restart the morning of 09/16/19. It will say continue on the form below but do not restart until 09/15 to allow for healing Pending Studies at Discharge: No Stand-Alone Forms: My Hydrelis, Smoking Cessation Medications and DC Order Prescriptions: Continued simvastatin 40 mg tablet 40 mg PO HS Qty: 30 RF: 5 Eliquis 2.5 mg tablet 2.5 mg PO BID Qty: 180 RF: 3 magnesium 250 mg Tablet 0 mg PO QAM RF: 0 calcium carbonate-vitamin D3 [Calcium 600 + D(3)] 600 mg(1,500mg) -400 unit Tablet 1 tab PO DAILY RF: 0 irbesartan-hydrochlorothiazide 150-12.5 mg tablet 1 tab PO QAM RF: 0 zolpidem 10 mg tablet 5 - 10 mg PO HS PRN (Reason: Sleep) RF: 0 atenolol 50 mg tablet 50 mg PO QAM RF: 0 Discharge Orders: Discharge Order (Routine); Ordered 09/11/19 Ordered By: Jules Rodríguez Admission Data Admit Date/Time: 09/09/19 18:05 Attending Provider: Jules Rodríguez Admit Provider: aTmar Couch Primary Care Provider: Stan Dobson Other Providers: Tamar Couch ; Tyree Todd Other Interventions: Discharge Summary Assessment (RN) Last Done: 09/11/19 11:31 DC Date/Time DO NOT enter until pt leaves facility: 09/11/19 13:45 Coding Level of Care Code D/C Day Management >30 mins Diagnoses Acute GI bleeding K92.2 Atrial fibrillation I48.0 Atrial fibrillation type: paroxysmal Cerebrovascular accident I63.9 CVA mechanism: unspecified Hypercholesterolemia E78.00 Left bundle-branch block I44.7 Hypertension I10 Hypertension type: essential hypertension
== END 2019-09-11 13:45 | disposition home or self-care (01) | DRG 378 ==
LOC: ED 14:01 → SUATTDRO 18:05 → 2N 18:05